=== PATIENT | female | born 1960 | race Caucasian/White ===

== ENCOUNTER → 2018-03-03 | Emergency (ER) | payer MEDICARE, MEDICAID ==
[~2018-03-03] VITALS: Ht 162.6 cm; Wt 91.0 kg
[~2018-03-03] MED LIST: ALBU8.5H8 IH; AMLO10TA PO; ARIP30TA3 PO; CARV-49 PO; CEPH500C5 PO; CLIN150C2 PO; ESCI10TA54 PO; ESCI5TAB12 PO; FLUO20CA PO; FLUT1AER IH; FLUT1DIS4 INH; FURO-149 PO; HALO5TAB PO; KETO120S6 TOP; LACTC PO; LORA10CA9 PO; LOSA50TA3 PO; NAPR-56 PO; NYST1POW5 TP; POTA10TA19 PO; SPIIN INH; TOPI50TA24 PO; UMEC62.5 IH; albuterol 2.5 MG/3 ML nebule NEB PRN; ipratropium 0.5 MG/2.5ML nebule IH PRN; mag hydrox/Alum hydrox/simeth 30ml oral suspension PO ONE; ziprasidone 20mg capsule PO SCH
[2018-03-03 13:45] LABS: BASOPHILS % (AUTO) 0.4 % (0-1); EOSINOPHILS # (AUTO) 0.3 X10'3 (0-0.9); HEMATOCRIT 42.9 % (35.0-45.0); HEMOGLOBIN 14.5 g/dl (12.0-16.0); LYMPHOCYTES # (AUTO) 2.1 X10'3 (1.1-4.8); LYMPHOCYTES % (AUTO) 29.1 % (21-51); MEAN CORPUSCULAR HEMOGLOBIN 31.1 PG (27.0-31.0); MEAN CORPUSCULAR HGB CONC 33.7 % (33.0-36.5); MEAN CORPUSCULAR VOLUME 92.1 FL (78-98); MEAN PLATELET VOLUME 7.5 FL (7.4-10.4); MONOCYTES # (AUTO) 0.5 X10'3 (0-0.9); MONOCYTES % (AUTO) 6.7 % (2-12); NEUTROPHILS # (AUTO) 4.4 X10'3 (1.8-7.7); NEUTROPHILS % (AUTO) 59.8 % (42-75); PLATELET COUNT 246 X10'3 (140-440); RED BLOOD COUNT 4.66 X10'6 (4.20-5.60); RED CELL DISTRIBUTION WIDTH 14.3 % (11.5-14.5); WHITE BLOOD COUNT 7.3 X10'3 (4.5-11.0)
[2018-03-03 13:58] LABS: ALANINE AMINOTRANSFERASE 25 U/L (12-78); ALBUMIN 3.8 G/DL (3.4-5.0); ALBUMIN/GLOBULIN RATIO 1.1 (1.1-1.5); ALKALINE PHOSPHATASE 102 IU/L (46-116); ANION GAP 13 (8-16); ASPARTATE AMINO TRANSFERASE 21 U/L (10-37); BILIRUBIN,TOTAL 0.3 MG/DL (0.1-1.0); BLOOD UREA NITROGEN 7 MG/DL (7-18); BUN/CREATININE RATIO 9.6 (6.6-38.0); CALCIUM 9.4 MG/DL (8.5-10.1); CHLORIDE 107 MMOL/L (99-107); CREATININE 0.73 MG/DL (0.40-0.90); GLUCOSE 104 MG/DL (70-104); POTASSIUM 3.5 MMOL/L (3.5-5.1); SODIUM 142 MMOL/L (135-145); TOTAL CARBON DIOXIDE 22.3 MMOL/L (24-32); TOTAL PROTEIN 7.3 G/DL (6.4-8.2); eGFR 82 ML/MIN
[2018-03-03 14:07] LABS: ETHANOL < 0.010 GM/DL (0.0-0.010)
[2018-03-03 14:54] LABS: CLARITY,URINE CLOUDY (Clear); COLOR,URINE YELLOW (Yellow); GLUCOSE, URINE NEGATIVE (Neg); KETONES,URINE TRACE mg/dl (Neg); LEUKOCYTE ESTERASE ,URINE NEGATIVE (Neg); NITRITES, URINE NEGATIVE (Neg); OCCULT BLOOD,URINE NEGATIVE (Neg); PH,URINE 5.5 (4.8-8.0); PROTEIN,URINE TRACE mg/dl (Neg)
[2018-03-03 15:07] LABS: UA COLLECTION TYPE VOIDED
[2018-03-03 15:12] LABS: SQUAMOUS EPITHELIAL CELL,UR MANY /LPF (FEW)
[2018-03-03 15:13] LABS: BACTERIA,URINE 2+ /HPF (Neg); CAL OXALATE CRYSTALS 1+ /HPF (NEGATIVE); MUCUS STRANDS MODERATE /LPF (Neg); RBC,URINE 0-2 /HPF (0-2)
[2018-03-03 15:16] LABS: URINE AMPHETAMINE SCREEN NEGATIVE (Neg); URINE BARBITUATE SCREEN NEGATIVE (Neg); URINE BENZODIAZEPINES SCREEN NEGATIVE (Neg); URINE CANNABINOID SCREEN NEGATIVE (Neg); URINE COCAINE SCREEN NEGATIVE (Neg); URINE METHADONE SCREEN NEGATIVE (Neg); URINE OPIATE SCREEN NEGATIVE (Neg); URINE PHENCYCLIDINE SCREEN NEGATIVE (Neg)
[2018-03-03] MEDS: topiramate 100mg tablet PO SCH (20:00)
[2018-03-03] MEDS: NYSTATIN CREAM - 30GM TUBE TP SCH (20:00)
[2018-03-03] MEDS: carvedilol 6.25mg tablet PO SCH (20:00)
[2018-03-03] MEDS: ipratropium 0.5 MG/2.5ML nebule NEB SCH (21:00)
[2018-03-04] MEDS: ipratropium 0.5 MG/2.5ML nebule NEB SCH ×4 (03:00→20:22)
[2018-03-04] MEDS: NYSTATIN CREAM - 30GM TUBE TP SCH ×2 (07:36→19:19)
[2018-03-04] MEDS: furosemide 40mg tablet PO SCH (08:00)
[2018-03-04] MEDS: loratadine 10mg tablet PO SCH (08:00)
[2018-03-04] MEDS: vitamin D (cholecalciferol) 1,000 unit tablet PO SCH (08:00)
[2018-03-04] MEDS: carvedilol 6.25mg tablet PO SCH ×2 (08:00→19:19)
[2018-03-04] MEDS: topiramate 100mg tablet PO SCH (08:00)
[2018-03-04] MEDS: CITALOpram 10mg tablet PO SCH (08:00)
[2018-03-04] MEDS: multivitamins, therapeutics tablet PO SCH (08:00)
[2018-03-04] MEDS: losartan 50mg tablet PO SCH (08:00)
[2018-03-04] MEDS: potassium chloride 10mEq ER tablet PO SCH (08:00)
[2018-03-04] MEDS: amLODIPine 5mg tablet PO SCH (08:00)
[2018-03-04] MEDS: risperiDONE 2mg tablet PO SCH ×2 (11:11→19:19)
[2018-03-04] MEDS: LORazepam 1 MG tablet PO SCH ×3 (11:12→20:24)
[2018-03-04] MEDS: nicotine 14mg patch - 24hr TD SCH (16:53)
[2018-03-05] MEDS: naproxen 500mg tablet PO PRN (02:30)
[2018-03-05] MEDS: ipratropium 0.5 MG/2.5ML nebule NEB SCH ×5 (02:30→20:12)
[2018-03-05] MEDS: potassium chloride 10mEq ER tablet PO SCH (08:00)
[2018-03-05] MEDS: NYSTATIN CREAM - 30GM TUBE TP SCH ×2 (08:00→20:00)
[2018-03-05] MEDS: LORazepam 1 MG tablet PO SCH ×3 (08:00→20:11)
[2018-03-05] MEDS: furosemide 40mg tablet PO SCH (08:00)
[2018-03-05] MEDS: nicotine 14mg patch - 24hr TD SCH (08:25)
[2018-03-05] MEDS: loratadine 10mg tablet PO SCH (08:26)
[2018-03-05] MEDS: multivitamins, therapeutics tablet PO SCH (08:26)
[2018-03-05] MEDS: risperiDONE 2mg tablet PO SCH ×2 (08:27→20:00)
[2018-03-05] MEDS: carvedilol 6.25mg tablet PO SCH ×2 (08:28→20:00)
[2018-03-05] MEDS: vitamin D (cholecalciferol) 1,000 unit tablet PO SCH (08:28)
[2018-03-05] MEDS: losartan 50mg tablet PO SCH (08:29)
[2018-03-05] MEDS: CITALOpram 10mg tablet PO SCH (08:29)
[2018-03-05] MEDS: amLODIPine 5mg tablet PO SCH (08:29)
[2018-03-06] MEDS: ipratropium 0.5 MG/2.5ML nebule NEB SCH ×4 (02:19→20:09)
[2018-03-06] MEDS: nicotine 14mg patch - 24hr TD SCH (07:44)
[2018-03-06] MEDS: furosemide 40mg tablet PO SCH (08:00)
[2018-03-06] MEDS: multivitamins, therapeutics tablet PO SCH (08:00)
[2018-03-06] MEDS: NYSTATIN CREAM - 30GM TUBE TP SCH ×2 (08:00→20:00)
[2018-03-06] MEDS: potassium chloride 10mEq ER tablet PO SCH (08:00)
[2018-03-06] MEDS: carvedilol 6.25mg tablet PO SCH ×2 (08:00→20:00)
[2018-03-06] MEDS: amLODIPine 5mg tablet PO SCH (08:00)
[2018-03-06] MEDS: loratadine 10mg tablet PO SCH (08:00)
[2018-03-06] MEDS: LORazepam 1 MG tablet PO SCH ×3 (08:00→21:00)
[2018-03-06] MEDS: vitamin D (cholecalciferol) 1,000 unit tablet PO SCH (08:00)
[2018-03-06] MEDS: risperiDONE 2mg tablet PO SCH ×2 (08:00→20:00)
[2018-03-06] MEDS: losartan 50mg tablet PO SCH (08:00)
[2018-03-06] MEDS: CITALOpram 10mg tablet PO SCH (08:00)
[2018-03-07] MEDS: naproxen 500mg tablet PO PRN ×2 (03:27→15:05)
[2018-03-07] MEDS: NYSTATIN CREAM - 30GM TUBE TP SCH ×2 (08:00→19:05)
[2018-03-07] MEDS: loratadine 10mg tablet PO SCH (08:00)
[2018-03-07] MEDS: potassium chloride 10mEq ER tablet PO SCH (08:00)
[2018-03-07] MEDS: furosemide 40mg tablet PO SCH (08:00)
[2018-03-07] MEDS: LORazepam 1 MG tablet PO SCH ×3 (08:00→19:57)
[2018-03-07] MEDS: nicotine 14mg patch - 24hr TD SCH (08:30)
[2018-03-07] MEDS: losartan 50mg tablet PO SCH (08:39)
[2018-03-07] MEDS: amLODIPine 5mg tablet PO SCH (08:39)
[2018-03-07] MEDS: CITALOpram 10mg tablet PO SCH (08:40)
[2018-03-07] MEDS: multivitamins, therapeutics tablet PO SCH (08:42)
[2018-03-07] MEDS: vitamin D (cholecalciferol) 1,000 unit tablet PO SCH (08:42)
[2018-03-07] MEDS: risperiDONE 2mg tablet PO SCH ×2 (09:16→20:03)
[2018-03-07] MEDS: carvedilol 6.25mg tablet PO SCH ×2 (09:16→20:03)
[2018-03-08] MEDS: vitamin D (cholecalciferol) 1,000 unit tablet PO SCH (07:04)
[2018-03-08] MEDS: loratadine 10mg tablet PO SCH (07:04)
[2018-03-08] MEDS: carvedilol 6.25mg tablet PO SCH ×2 (07:05→20:35)
[2018-03-08] MEDS: amLODIPine 5mg tablet PO SCH (07:05)
[2018-03-08] MEDS: LORazepam 1 MG tablet PO SCH ×3 (07:05→21:42)
[2018-03-08] MEDS: losartan 50mg tablet PO SCH (07:06)
[2018-03-08] MEDS: CITALOpram 10mg tablet PO SCH (07:08)
[2018-03-08] MEDS: furosemide 40mg tablet PO SCH (07:09)
[2018-03-08] MEDS: risperiDONE 2mg tablet PO SCH ×2 (07:09→20:35)
[2018-03-08] MEDS: multivitamins, therapeutics tablet PO SCH (07:09)
[2018-03-08] MEDS: potassium chloride 10mEq ER tablet PO SCH (07:09)
[2018-03-08] MEDS: nicotine 14mg patch - 24hr TD SCH ×2 (07:10→07:30)
[2018-03-08] MEDS: NYSTATIN CREAM - 30GM TUBE TP SCH ×2 (08:00→20:36)
[2018-03-08 20:25] VITALS: BP 131/77
== END ==
LOC: ER 11:52
DX: F23 Brief psychotic disorder (principal); Z88.8 Allergy status to other drugs, medicaments and biological substances; Z79.899 Other long term (current) drug therapy
CPT/HCPCS: 36415; 80053; 80305; 80320; 81001; 84443; 85025; 94760; 99285

== ENCOUNTER 2018-03-14 15:30 | Inpatient (IN) | payer MEDICARE, MEDICAID ==
[~2018-03-14] VITALS: Ht 165.1 cm; Wt 125.6 kg
[~2018-03-14 15:30] MED LIST changes: -ARIP30TA3 PO; -CEPH500C5 PO; -CLIN150C2 PO; -ESCI5TAB12 PO; -FLUO20CA PO; -FLUT1DIS4 INH; -KETO120S6 TOP; -LACTC PO; -NYST1POW5 TP; -SPIIN INH; -albuterol 2.5 MG/3 ML nebule NEB PRN; -ipratropium 0.5 MG/2.5ML nebule IH PRN; -mag hydrox/Alum hydrox/simeth 30ml oral suspension PO ONE; -ziprasidone 20mg capsule PO SCH
[2018-03-14] MEDS ORDERED: albuterol 2.5 MG/3 ML nebule NEB PRN (20:25)
[2018-03-14] MEDS ORDERED: haloperidol 5mg tablet PO PRN (20:30)
[2018-03-14] MEDS ORDERED: mag hydrox/Alum hydrox/simeth 30ml oral suspension PO PRN (20:50)
[2018-03-14] MEDS ORDERED: acetaminophen 325mg tablet PO PRN (20:50)
[2018-03-14] MEDS ORDERED: magnesium hydroxide 30ml (MOM) UD suspension PO PRN (20:50)
[2018-03-14] MEDS: naproxen 500mg tablet PO PRN (21:10)
[2018-03-14] MEDS: haloperidol 5mg tablet PO SCH (21:28)
[2018-03-14] MEDS: BUDESONIDE 0.25 MG/2 ML AMPUL.NEB IH SCH (23:45)
[2018-03-15] MEDS: albuterol 2.5 MG/3 ML nebule NEB SCH ×4 (07:00→19:37)
[2018-03-15] MEDS: potassium chloride 10mEq ER tablet PO SCH (07:55)
[2018-03-15] MEDS: amLODIPine 5mg tablet PO SCH (07:55)
[2018-03-15] MEDS: topiramate 100mg tablet PO SCH ×2 (07:55→21:20)
[2018-03-15] MEDS: furosemide 40mg tablet PO SCH (07:55)
[2018-03-15] MEDS: carvedilol 6.25mg tablet PO SCH ×2 (07:56→21:20)
[2018-03-15] MEDS: losartan 50mg tablet PO SCH (07:56)
[2018-03-15] MEDS: loratadine 10mg tablet PO SCH (07:56)
[2018-03-15 08:00] VITALS: BP 156/89
[2018-03-15] MEDS: INCRUSE ELLIPTA IH SCH (08:00)
[2018-03-15] MEDS ORDERED: citalopram 20mg tablet PO SCH (08:00)
[2018-03-15] MEDS ORDERED: nicotine 14mg patch - 24hr TD ONE (08:35)
[2018-03-15] MEDS: BUDESONIDE 0.25 MG/2 ML AMPUL.NEB IH SCH ×2 (11:36→19:37)
[2018-03-15] MEDS: naproxen 500mg tablet PO PRN (14:45)
[2018-03-15 20:00] VITALS: BP 95/53
[2018-03-15] MEDS: haloperidol 5mg tablet PO SCH (21:00)
[2018-03-16] MEDS: albuterol 2.5 MG/3 ML nebule NEB SCH ×4 (07:00→19:00)
[2018-03-16] MEDS: INCRUSE ELLIPTA IH SCH (08:00)
[2018-03-16] MEDS ORDERED: PALIPERIDONE 3 MG TAB.ER.24 PO SCH (08:00)
[2018-03-16] MEDS ORDERED: venlafaxine XR 37.5mg cap (Q24H) PO SCH (08:00)
[2018-03-16 08:05] VITALS: BP 117/75
[2018-03-16 08:21] LABS: CHOL/HDL RATIO 4.7 (0.00-4.99); CHOLESTEROL 226 MG/DL (0-200); HDL CHOLESTEROL 48 MG/DL (35-60); LDL CHOLESTEROL 146 MG/DL (50-100); TRIGLYCERIDES 215 MG/DL (20-135)
[2018-03-16 08:31] LABS: HEMOGLOBIN A1C 5.9 % (4.5-6.2)
[2018-03-16] MEDS: nicotine 14mg patch - 24hr TD SCH (08:40)
[2018-03-16] MEDS: loratadine 10mg tablet PO SCH (08:40)
[2018-03-16] MEDS: losartan 50mg tablet PO SCH (08:41)
[2018-03-16] MEDS: potassium chloride 10mEq ER tablet PO SCH (08:41)
[2018-03-16] MEDS: furosemide 40mg tablet PO SCH (08:41)
[2018-03-16] MEDS: topiramate 100mg tablet PO SCH ×2 (08:42→20:29)
[2018-03-16] MEDS: carvedilol 6.25mg tablet PO SCH ×2 (08:43→20:30)
[2018-03-16] MEDS: amLODIPine 5mg tablet PO SCH (08:44)
[2018-03-16] MEDS: doxycycline hyclate 100mg tablet.DR PO SCH ×2 (08:55→17:48)
[2018-03-16] MEDS: BUDESONIDE 0.25 MG/2 ML AMPUL.NEB IH SCH ×2 (09:00→19:56)
[2018-03-16 20:00] VITALS: BP 121/77
[2018-03-17] MEDS: albuterol 2.5 MG/3 ML nebule NEB SCH ×4 (07:00→19:00)
[2018-03-17] MEDS: INCRUSE ELLIPTA IH SCH (08:00)
[2018-03-17] MEDS: nicotine 14mg patch - 24hr TD SCH (08:20)
[2018-03-17] MEDS: loratadine 10mg tablet PO SCH (08:20)
[2018-03-17] MEDS: doxycycline hyclate 100mg tablet.DR PO SCH ×2 (08:20→17:51)
[2018-03-17] MEDS: potassium chloride 10mEq ER tablet PO SCH (08:21)
[2018-03-17] MEDS: venlafaxine XR 37.5mg cap (Q24H) PO SCH (08:21)
[2018-03-17] MEDS: PALIPERIDONE 3 MG TAB.ER.24 PO SCH (08:21)
[2018-03-17] MEDS: losartan 50mg tablet PO SCH (08:22)
[2018-03-17] MEDS: amLODIPine 5mg tablet PO SCH (08:22)
[2018-03-17] MEDS: topiramate 100mg tablet PO SCH ×2 (08:22→21:03)
[2018-03-17] MEDS: carvedilol 6.25mg tablet PO SCH ×2 (08:22→21:02)
[2018-03-17] MEDS: furosemide 40mg tablet PO SCH (08:22)
[2018-03-17 08:43] VITALS: BP 110/68
[2018-03-17] MEDS: BUDESONIDE 0.25 MG/2 ML AMPUL.NEB IH SCH ×2 (09:00→21:00)
[2018-03-17] MEDS: naproxen 500mg tablet PO PRN (16:17)
[2018-03-17 19:39] VITALS: BP 116/57
[2018-03-17] MEDS: acetaminophen 325mg tablet PO PRN (21:03)
[2018-03-18] MEDS: INCRUSE ELLIPTA IH SCH (06:26)
[2018-03-18] MEDS: albuterol 2.5 MG/3 ML nebule NEB SCH ×4 (06:26→19:00)
[2018-03-18] MEDS: BUDESONIDE 0.25 MG/2 ML AMPUL.NEB IH SCH ×2 (06:27→20:32)
[2018-03-18] MEDS: doxycycline hyclate 100mg tablet.DR PO SCH ×2 (07:24→17:51)
[2018-03-18 08:27] VITALS: BP 129/77
[2018-03-18] MEDS: losartan 50mg tablet PO SCH (08:30)
[2018-03-18] MEDS: PALIPERIDONE 3 MG TAB.ER.24 PO SCH (08:31)
[2018-03-18] MEDS: amLODIPine 5mg tablet PO SCH (08:31)
[2018-03-18] MEDS: loratadine 10mg tablet PO SCH (08:31)
[2018-03-18] MEDS: topiramate 100mg tablet PO SCH ×2 (08:31→20:10)
[2018-03-18] MEDS: venlafaxine XR 37.5mg cap (Q24H) PO SCH (08:31)
[2018-03-18] MEDS: potassium chloride 10mEq ER tablet PO SCH (08:31)
[2018-03-18] MEDS: carvedilol 6.25mg tablet PO SCH ×2 (08:31→20:10)
[2018-03-18] MEDS: furosemide 40mg tablet PO SCH (08:31)
[2018-03-18] MEDS: nicotine 14mg patch - 24hr TD SCH (08:32)
[2018-03-18 19:00] VITALS: BP 111/72
[2018-03-19] MEDS: albuterol 2.5 MG/3 ML nebule NEB SCH ×5 (07:00→21:35)
[2018-03-19] MEDS: topiramate 100mg tablet PO SCH ×2 (07:40→20:47)
[2018-03-19] MEDS: amLODIPine 5mg tablet PO SCH (07:40)
[2018-03-19] MEDS: carvedilol 6.25mg tablet PO SCH ×2 (07:40→20:48)
[2018-03-19] MEDS: potassium chloride 10mEq ER tablet PO SCH (07:40)
[2018-03-19] MEDS: losartan 50mg tablet PO SCH (07:40)
[2018-03-19] MEDS: loratadine 10mg tablet PO SCH (07:41)
[2018-03-19] MEDS: doxycycline hyclate 100mg tablet.DR PO SCH ×2 (07:41→17:46)
[2018-03-19] MEDS: venlafaxine XR 37.5mg cap (Q24H) PO SCH (07:41)
[2018-03-19] MEDS: PALIPERIDONE 3 MG TAB.ER.24 PO SCH (07:41)
[2018-03-19] MEDS: furosemide 40mg tablet PO SCH (07:41)
[2018-03-19] MEDS: nicotine 14mg patch - 24hr TD SCH (07:44)
[2018-03-19] MEDS: INCRUSE ELLIPTA IH SCH (07:48)
[2018-03-19] MEDS: BUDESONIDE 0.25 MG/2 ML AMPUL.NEB IH SCH ×3 (07:48→21:36)
[2018-03-19 08:22] VITALS: BP 125/70
[2018-03-19] MEDS ORDERED: paliperidone palmitate inj 234 MG/1.5 ML SYRINGE IM ONE (13:50)
[2018-03-19 20:00] VITALS: BP 148/85
[2018-03-19] MEDS: lactobacillus rhamnosus 10,000 MMU CELLS/CAPSULE PO SCH (20:47)
[2018-03-19] MEDS: nystatin 15 GM powder TP SCH (20:48)
[2018-03-20 08:00] VITALS: BP 105/66
[2018-03-20] MEDS: INCRUSE ELLIPTA IH SCH (08:00)
[2018-03-20] MEDS: PALIPERIDONE 3 MG TAB.ER.24 PO SCH (08:37)
[2018-03-20] MEDS: venlafaxine XR 37.5mg cap (Q24H) PO SCH (08:37)
[2018-03-20] MEDS: nicotine 14mg patch - 24hr TD SCH (08:37)
[2018-03-20] MEDS: doxycycline hyclate 100mg tablet.DR PO SCH ×2 (08:37→17:45)
[2018-03-20] MEDS: loratadine 10mg tablet PO SCH (08:37)
[2018-03-20] MEDS: amLODIPine 5mg tablet PO SCH (08:38)
[2018-03-20] MEDS: losartan 50mg tablet PO SCH (08:38)
[2018-03-20] MEDS: carvedilol 6.25mg tablet PO SCH ×2 (08:38→20:19)
[2018-03-20] MEDS: lactobacillus rhamnosus 10,000 MMU CELLS/CAPSULE PO SCH ×2 (08:38→20:19)
[2018-03-20] MEDS: furosemide 40mg tablet PO SCH (08:38)
[2018-03-20] MEDS: potassium chloride 10mEq ER tablet PO SCH (08:38)
[2018-03-20] MEDS: nystatin 15 GM powder TP SCH ×3 (08:39→20:19)
[2018-03-20] MEDS: topiramate 100mg tablet PO SCH ×2 (08:39→20:19)
[2018-03-20 19:14] VITALS: BP 143/73
[2018-03-20] MEDS: BUDESONIDE 0.25 MG/2 ML AMPUL.NEB IH SCH (19:41)
[2018-03-21 08:00] VITALS: BP 122/83
[2018-03-21] MEDS: INCRUSE ELLIPTA IH SCH (08:00)
[2018-03-21] MEDS: topiramate 100mg tablet PO SCH ×2 (08:02→20:14)
[2018-03-21] MEDS: doxycycline hyclate 100mg tablet.DR PO SCH ×2 (08:03→17:40)
[2018-03-21] MEDS: furosemide 40mg tablet PO SCH (08:03)
[2018-03-21] MEDS: potassium chloride 10mEq ER tablet PO SCH (08:03)
[2018-03-21] MEDS: lactobacillus rhamnosus 10,000 MMU CELLS/CAPSULE PO SCH ×2 (08:03→20:14)
[2018-03-21] MEDS: loratadine 10mg tablet PO SCH (08:03)
[2018-03-21] MEDS: venlafaxine XR 37.5mg cap (Q24H) PO SCH (08:03)
[2018-03-21] MEDS: amLODIPine 5mg tablet PO SCH (08:03)
[2018-03-21] MEDS: carvedilol 6.25mg tablet PO SCH ×2 (08:03→20:14)
[2018-03-21] MEDS: losartan 50mg tablet PO SCH (08:03)
[2018-03-21] MEDS: PALIPERIDONE 3 MG TAB.ER.24 PO SCH (08:03)
[2018-03-21] MEDS: nicotine 14mg patch - 24hr TD SCH (08:04)
[2018-03-21] MEDS: BUDESONIDE 0.25 MG/2 ML AMPUL.NEB IH SCH ×2 (08:30→21:00)
[2018-03-21] MEDS: nystatin 15 GM powder TP SCH ×3 (09:00→20:14)
[2018-03-21 19:00] VITALS: BP 121/72
[2018-03-22] MEDS: PALIPERIDONE 3 MG TAB.ER.24 PO SCH (07:58)
[2018-03-22] MEDS: doxycycline hyclate 100mg tablet.DR PO SCH ×2 (07:58→18:02)
[2018-03-22] MEDS: loratadine 10mg tablet PO SCH (07:58)
[2018-03-22] MEDS: potassium chloride 10mEq ER tablet PO SCH (07:58)
[2018-03-22] MEDS: furosemide 40mg tablet PO SCH (07:58)
[2018-03-22] MEDS: lactobacillus rhamnosus 10,000 MMU CELLS/CAPSULE PO SCH ×2 (07:58→21:02)
[2018-03-22] MEDS: amLODIPine 5mg tablet PO SCH (07:58)
[2018-03-22] MEDS: carvedilol 6.25mg tablet PO SCH ×2 (07:59→21:02)
[2018-03-22] MEDS: nystatin 15 GM powder TP SCH ×3 (07:59→21:07)
[2018-03-22] MEDS: topiramate 100mg tablet PO SCH ×2 (07:59→21:03)
[2018-03-22] MEDS: losartan 50mg tablet PO SCH (07:59)
[2018-03-22] MEDS: venlafaxine XR 37.5mg cap (Q24H) PO SCH (07:59)
[2018-03-22 08:00] VITALS: BP 149/88
[2018-03-22] MEDS: INCRUSE ELLIPTA IH SCH (08:00)
[2018-03-22] MEDS: nicotine 14mg patch - 24hr TD SCH (08:00)
[2018-03-22] MEDS: BUDESONIDE 0.25 MG/2 ML AMPUL.NEB IH SCH ×2 (09:00→21:00)
[2018-03-22] MEDS: albuterol 2.5 MG/3 ML nebule NEB PRN (09:30)
[2018-03-22 09:32] LABS: BASOPHILS % (AUTO) 0.3 % (0-1); EOSINOPHILS # (AUTO) 0.5 X10'3 (0-0.9); EOSINOPHILS % (AUTO) 5.4 % (0-6); HEMATOCRIT 37.7 % (35.0-45.0); HEMOGLOBIN 12.9 g/dl (12.0-16.0); LYMPHOCYTES # (AUTO) 1.9 X10'3 (1.1-4.8); LYMPHOCYTES % (AUTO) 19.6 % (21-51); MEAN CORPUSCULAR HEMOGLOBIN 31.2 PG (27.0-31.0); MEAN CORPUSCULAR HGB CONC 34.2 % (33.0-36.5); MEAN CORPUSCULAR VOLUME 91.2 FL (78-98); MEAN PLATELET VOLUME 7.2 FL (7.4-10.4); MONOCYTES # (AUTO) 0.4 X10'3 (0-0.9); MONOCYTES % (AUTO) 4.7 % (2-12); NEUTROPHILS # (AUTO) 6.6 X10'3 (1.8-7.7); PLATELET COUNT 242 X10'3 (140-440); RED BLOOD COUNT 4.13 X10'6 (4.20-5.60); WHITE BLOOD COUNT 9.4 X10'3 (4.5-11.0)
[2018-03-22 09:45] LABS: ALANINE AMINOTRANSFERASE 20 U/L (12-78); ALBUMIN/GLOBULIN RATIO 0.9 (1.1-1.5); ALKALINE PHOSPHATASE 110 IU/L (46-116); ANION GAP 9 (8-16); ASPARTATE AMINO TRANSFERASE 12 U/L (10-37); BILIRUBIN,TOTAL 0.1 MG/DL (0.1-1.0); BLOOD UREA NITROGEN 19 MG/DL (7-18); BUN/CREATININE RATIO 21.3 (6.6-38.0); CALCIUM 8.7 MG/DL (8.5-10.1); CHLORIDE 106 MMOL/L (99-107); CREATININE 0.89 MG/DL (0.40-0.90); GLUCOSE 153 MG/DL (70-104); POTASSIUM 3.6 MMOL/L (3.5-5.1); SODIUM 140 MMOL/L (135-145); TOTAL CARBON DIOXIDE 25.2 MMOL/L (24-32); TOTAL PROTEIN 6.4 G/DL (6.4-8.2); eGFR 65 ML/MIN
[2018-03-22 19:00] VITALS: BP 113/82
[2018-03-22] MEDS: naproxen 500mg tablet PO PRN (21:03)
[2018-03-23 08:00] VITALS: BP 143/87
[2018-03-23] MEDS: nystatin 15 GM powder TP SCH ×3 (08:00→20:53)
[2018-03-23] MEDS: INCRUSE ELLIPTA IH SCH (08:00)
[2018-03-23] MEDS: carvedilol 6.25mg tablet PO SCH ×2 (08:13→20:41)
[2018-03-23] MEDS: atorvastatin 10mg tablet PO SCH (08:13)
[2018-03-23] MEDS: doxycycline hyclate 100mg tablet.DR PO SCH (08:13)
[2018-03-23] MEDS: venlafaxine XR 37.5mg cap (Q24H) PO SCH (08:13)
[2018-03-23] MEDS: topiramate 100mg tablet PO SCH ×2 (08:13→20:41)
[2018-03-23] MEDS: losartan 50mg tablet PO SCH (08:13)
[2018-03-23] MEDS: potassium chloride 10mEq ER tablet PO SCH (08:13)
[2018-03-23] MEDS: amLODIPine 5mg tablet PO SCH (08:13)
[2018-03-23] MEDS: PALIPERIDONE 3 MG TAB.ER.24 PO SCH (08:13)
[2018-03-23] MEDS: loratadine 10mg tablet PO SCH (08:13)
[2018-03-23] MEDS: nicotine 14mg patch - 24hr TD SCH (08:14)
[2018-03-23] MEDS: lactobacillus rhamnosus 10,000 MMU CELLS/CAPSULE PO SCH ×2 (08:14→20:41)
[2018-03-23] MEDS: BUDESONIDE 0.25 MG/2 ML AMPUL.NEB IH PRN (09:17)
[2018-03-23] MEDS: albuterol 2.5 MG/3 ML nebule NEB PRN (09:17)
[2018-03-23] MEDS: naproxen 500mg tablet PO PRN (11:01)
[2018-03-23 20:00] VITALS: BP 98/61
[2018-03-23 20:30] VITALS: BP 110/60
[2018-03-24] MEDS: nicotine 14mg patch - 24hr TD SCH (07:58)
[2018-03-24] MEDS: topiramate 100mg tablet PO SCH ×2 (07:59→20:43)
[2018-03-24] MEDS: lactobacillus rhamnosus 10,000 MMU CELLS/CAPSULE PO SCH ×2 (07:59→20:43)
[2018-03-24] MEDS: amLODIPine 5mg tablet PO SCH (07:59)
[2018-03-24] MEDS: atorvastatin 10mg tablet PO SCH (07:59)
[2018-03-24] MEDS: venlafaxine XR 37.5mg cap (Q24H) PO SCH (07:59)
[2018-03-24] MEDS: carvedilol 6.25mg tablet PO SCH ×2 (07:59→20:42)
[2018-03-24 08:00] VITALS: BP 110/74
[2018-03-24] MEDS: losartan 50mg tablet PO SCH (08:00)
[2018-03-24] MEDS: PALIPERIDONE 3 MG TAB.ER.24 PO SCH (08:00)
[2018-03-24] MEDS: potassium chloride 10mEq ER tablet PO SCH (08:00)
[2018-03-24] MEDS: loratadine 10mg tablet PO SCH (08:00)
[2018-03-24] MEDS: INCRUSE ELLIPTA IH SCH (08:00)
[2018-03-24 08:45] LABS: CLARITY,URINE CLEAR (Clear); COLOR,URINE YELLOW (Yellow); GLUCOSE, URINE NEGATIVE (Neg); KETONES,URINE NEGATIVE (Neg); LEUKOCYTE ESTERASE ,URINE NEGATIVE (Neg); NITRITES, URINE NEGATIVE (Neg); OCCULT BLOOD,URINE NEGATIVE (Neg); PROTEIN,URINE NEGATIVE (Neg); UROBILINOGEN,URINE 0.2 E.U/dL (0.2-1.0)
[2018-03-24 08:48] LABS: UA COLLECTION TYPE CLN CATCH MIDSTREAM
[2018-03-24] MEDS: nystatin 15 GM powder TP SCH ×3 (08:50→20:43)
[2018-03-24 09:05] LABS: URINE AMPHETAMINE SCREEN NEGATIVE (Neg); URINE BARBITUATE SCREEN NEGATIVE (Neg); URINE BENZODIAZEPINES SCREEN NEGATIVE (Neg); URINE CANNABINOID SCREEN NEGATIVE (Neg); URINE COCAINE SCREEN NEGATIVE (Neg); URINE METHADONE SCREEN NEGATIVE (Neg); URINE OPIATE SCREEN NEGATIVE (Neg); URINE PHENCYCLIDINE SCREEN NEGATIVE (Neg)
[2018-03-24] MEDS: BUDESONIDE 0.25 MG/2 ML AMPUL.NEB IH PRN (09:47)
[2018-03-24 19:00] VITALS: BP 129/82
[2018-03-25 08:00] VITALS: BP 135/80
[2018-03-25] MEDS: INCRUSE ELLIPTA IH SCH (08:00)
[2018-03-25] MEDS: loratadine 10mg tablet PO SCH (08:14)
[2018-03-25] MEDS: losartan 50mg tablet PO SCH (08:15)
[2018-03-25] MEDS: lactobacillus rhamnosus 10,000 MMU CELLS/CAPSULE PO SCH ×2 (08:15→20:25)
[2018-03-25] MEDS: carvedilol 6.25mg tablet PO SCH ×2 (08:15→20:25)
[2018-03-25] MEDS: atorvastatin 10mg tablet PO SCH (08:16)
[2018-03-25] MEDS: venlafaxine XR 37.5mg cap (Q24H) PO SCH (08:16)
[2018-03-25] MEDS: potassium chloride 10mEq ER tablet PO SCH (08:16)
[2018-03-25] MEDS: PALIPERIDONE 3 MG TAB.ER.24 PO SCH (08:17)
[2018-03-25] MEDS: nicotine 14mg patch - 24hr TD SCH (08:17)
[2018-03-25] MEDS: nystatin 15 GM powder TP SCH ×3 (08:17→20:22)
[2018-03-25] MEDS: topiramate 100mg tablet PO SCH ×2 (08:17→20:25)
[2018-03-25] MEDS: amLODIPine 5mg tablet PO SCH (08:19)
[2018-03-25] MEDS ORDERED: tuberculin, purif. prot. deriv. 5 units/0.1ml ID ONE (11:40)
[2018-03-25 20:58] VITALS: BP 112/67
[2018-03-26] MEDS: INCRUSE ELLIPTA IH SCH (07:27)
[2018-03-26 08:00] VITALS: BP 130/76
[2018-03-26] MEDS: PALIPERIDONE 3 MG TAB.ER.24 PO SCH (08:22)
[2018-03-26] MEDS: topiramate 100mg tablet PO SCH ×2 (08:22→20:52)
[2018-03-26] MEDS: potassium chloride 10mEq ER tablet PO SCH (08:22)
[2018-03-26] MEDS: nystatin 15 GM powder TP SCH ×3 (08:22→21:00)
[2018-03-26] MEDS: atorvastatin 10mg tablet PO SCH (08:22)
[2018-03-26] MEDS: nicotine 14mg patch - 24hr TD SCH (08:22)
[2018-03-26] MEDS: loratadine 10mg tablet PO SCH (08:22)
[2018-03-26] MEDS: venlafaxine XR 37.5mg cap (Q24H) PO SCH (08:23)
[2018-03-26] MEDS: amLODIPine 5mg tablet PO SCH (08:23)
[2018-03-26] MEDS: carvedilol 6.25mg tablet PO SCH ×2 (08:23→20:53)
[2018-03-26] MEDS: lactobacillus rhamnosus 10,000 MMU CELLS/CAPSULE PO SCH ×2 (08:23→20:52)
[2018-03-26] MEDS: losartan 50mg tablet PO SCH (08:23)
[2018-03-26] MEDS ORDERED: paliperidone palmitate 156 mg/ml inj.**IM only IM ONE (10:05)
[2018-03-26] MEDS: naproxen 500mg tablet PO PRN (12:45)
[2018-03-26 19:00] VITALS: BP 129/75
[2018-03-27 08:00] VITALS: BP 111/75
[2018-03-27] MEDS: nystatin 15 GM powder TP SCH ×3 (08:00→21:16)
[2018-03-27] MEDS: INCRUSE ELLIPTA IH SCH (08:00)
[2018-03-27] MEDS: venlafaxine XR 37.5mg cap (Q24H) PO SCH (08:26)
[2018-03-27] MEDS: loratadine 10mg tablet PO SCH (08:26)
[2018-03-27] MEDS: nicotine 14mg patch - 24hr TD SCH (08:26)
[2018-03-27] MEDS: lactobacillus rhamnosus 10,000 MMU CELLS/CAPSULE PO SCH ×2 (08:26→21:16)
[2018-03-27] MEDS: atorvastatin 10mg tablet PO SCH (08:26)
[2018-03-27] MEDS: potassium chloride 10mEq ER tablet PO SCH (08:26)
[2018-03-27] MEDS: topiramate 100mg tablet PO SCH ×2 (08:26→21:16)
[2018-03-27] MEDS: amLODIPine 5mg tablet PO SCH (08:26)
[2018-03-27] MEDS: losartan 50mg tablet PO SCH (08:26)
[2018-03-27] MEDS: carvedilol 6.25mg tablet PO SCH ×2 (08:26→21:16)
[2018-03-27] MEDS: naproxen 500mg tablet PO PRN (10:23)
[2018-03-27 20:00] VITALS: BP 127/70
[2018-03-28 08:00] VITALS: BP 115/74
[2018-03-28] MEDS: INCRUSE ELLIPTA IH SCH ×2 (08:00→14:15)
[2018-03-28] MEDS: nystatin 15 GM powder TP SCH ×3 (08:00→21:05)
[2018-03-28] MEDS: atorvastatin 10mg tablet PO SCH (08:27)
[2018-03-28] MEDS: potassium chloride 10mEq ER tablet PO SCH (08:27)
[2018-03-28] MEDS: lactobacillus rhamnosus 10,000 MMU CELLS/CAPSULE PO SCH ×2 (08:27→19:44)
[2018-03-28] MEDS: carvedilol 6.25mg tablet PO SCH ×2 (08:27→19:44)
[2018-03-28] MEDS: venlafaxine XR 37.5mg cap (Q24H) PO SCH (08:27)
[2018-03-28] MEDS: loratadine 10mg tablet PO SCH (08:27)
[2018-03-28] MEDS: losartan 50mg tablet PO SCH (08:27)
[2018-03-28] MEDS: topiramate 100mg tablet PO SCH ×2 (08:27→19:44)
[2018-03-28] MEDS: amLODIPine 5mg tablet PO SCH (08:27)
[2018-03-28] MEDS: nicotine 14mg patch - 24hr TD SCH (08:28)
[2018-03-28 19:58] VITALS: BP 124/77
[2018-03-29] MEDS: INCRUSE ELLIPTA IH SCH (07:12)
[2018-03-29 08:00] VITALS: BP 123/69
[2018-03-29] MEDS: nystatin 15 GM powder TP SCH ×3 (08:00→20:25)
[2018-03-29] MEDS: lactobacillus rhamnosus 10,000 MMU CELLS/CAPSULE PO SCH ×2 (08:06→20:24)
[2018-03-29] MEDS: potassium chloride 10mEq ER tablet PO SCH (08:06)
[2018-03-29] MEDS: loratadine 10mg tablet PO SCH (08:06)
[2018-03-29] MEDS: amLODIPine 5mg tablet PO SCH (08:07)
[2018-03-29] MEDS: losartan 50mg tablet PO SCH (08:07)
[2018-03-29] MEDS: venlafaxine XR 37.5mg cap (Q24H) PO SCH (08:08)
[2018-03-29] MEDS: carvedilol 6.25mg tablet PO SCH ×2 (08:08→20:24)
[2018-03-29] MEDS: topiramate 100mg tablet PO SCH ×2 (08:08→20:24)
[2018-03-29] MEDS: nicotine 14mg patch - 24hr TD SCH (08:34)
[2018-03-29] MEDS: atorvastatin 10mg tablet PO SCH (08:34)
[2018-03-29 20:02] VITALS: BP 108/69
[2018-03-30] MEDS: losartan 50mg tablet PO SCH (08:00)
[2018-03-30] MEDS: nystatin 15 GM powder TP SCH ×3 (08:00→21:00)
[2018-03-30] MEDS: lactobacillus rhamnosus 10,000 MMU CELLS/CAPSULE PO SCH ×2 (08:08→20:24)
[2018-03-30] MEDS: carvedilol 6.25mg tablet PO SCH ×2 (08:08→20:24)
[2018-03-30] MEDS: loratadine 10mg tablet PO SCH (08:08)
[2018-03-30] MEDS: topiramate 100mg tablet PO SCH ×2 (08:09→20:24)
[2018-03-30] MEDS: atorvastatin 10mg tablet PO SCH (08:09)
[2018-03-30] MEDS: venlafaxine XR 37.5mg cap (Q24H) PO SCH (08:09)
[2018-03-30] MEDS: amLODIPine 5mg tablet PO SCH (08:09)
[2018-03-30] MEDS: potassium chloride 10mEq ER tablet PO SCH (08:09)
[2018-03-30] MEDS: nicotine 14mg patch - 24hr TD SCH (08:10)
[2018-03-30 08:40] VITALS: BP 105/69
[2018-03-30] MEDS: naproxen 500mg tablet PO PRN (11:02)
[2018-03-30 19:02] VITALS: BP 133/76
[2018-03-31 07:59] VITALS: BP 136/79
[2018-03-31] MEDS: nystatin 15 GM powder TP SCH ×3 (08:00→20:54)
[2018-03-31] MEDS: loratadine 10mg tablet PO SCH (08:18)
[2018-03-31] MEDS: potassium chloride 10mEq ER tablet PO SCH (08:19)
[2018-03-31] MEDS: lactobacillus rhamnosus 10,000 MMU CELLS/CAPSULE PO SCH ×2 (08:19→20:54)
[2018-03-31] MEDS: atorvastatin 10mg tablet PO SCH (08:19)
[2018-03-31] MEDS: venlafaxine XR 37.5mg cap (Q24H) PO SCH (08:19)
[2018-03-31] MEDS: carvedilol 6.25mg tablet PO SCH ×2 (08:19→20:54)
[2018-03-31] MEDS: losartan 50mg tablet PO SCH (08:19)
[2018-03-31] MEDS: topiramate 100mg tablet PO SCH ×2 (08:20→20:54)
[2018-03-31] MEDS: amLODIPine 5mg tablet PO SCH (08:20)
[2018-03-31] MEDS: nicotine 14mg patch - 24hr TD SCH (08:20)
[2018-03-31] MEDS: diphenhydrAMINE 25mg capsule PO PRN (17:24)
[2018-03-31 20:00] VITALS: BP 118/63
[2018-03-31] MEDS: clotrimazole topical cream 15gm tube TP SCH (21:30)
[2018-04-01] MEDS: nystatin 15 GM powder TP SCH ×3 (08:00→21:17)
[2018-04-01 08:08] VITALS: BP 107/65
[2018-04-01] MEDS: venlafaxine XR 37.5mg cap (Q24H) PO SCH (08:20)
[2018-04-01] MEDS: lactobacillus rhamnosus 10,000 MMU CELLS/CAPSULE PO SCH ×2 (08:20→21:16)
[2018-04-01] MEDS: topiramate 100mg tablet PO SCH ×2 (08:20→21:16)
[2018-04-01] MEDS: atorvastatin 10mg tablet PO SCH (08:20)
[2018-04-01] MEDS: losartan 50mg tablet PO SCH (08:20)
[2018-04-01] MEDS: potassium chloride 10mEq ER tablet PO SCH (08:20)
[2018-04-01] MEDS: loratadine 10mg tablet PO SCH (08:20)
[2018-04-01] MEDS: carvedilol 6.25mg tablet PO SCH ×2 (08:20→21:16)
[2018-04-01] MEDS: amLODIPine 5mg tablet PO SCH (08:20)
[2018-04-01] MEDS: nicotine 14mg patch - 24hr TD SCH (09:43)
[2018-04-01] MEDS: clotrimazole topical cream 15gm tube TP SCH ×2 (13:00→20:00)
[2018-04-01] MEDS: fluconazole 100mg tablet PO SCH (16:24)
[2018-04-01] MEDS: diphenhydrAMINE 25mg capsule PO PRN (16:24)
[2018-04-01 19:00] VITALS: BP 112/65
[2018-04-01] MEDS: naproxen 500mg tablet PO PRN (21:16)
[2018-04-02] MEDS: nystatin 15 GM powder TP SCH ×3 (07:51→20:52)
[2018-04-02] MEDS: clotrimazole topical cream 15gm tube TP SCH ×2 (07:51→20:52)
[2018-04-02] MEDS: lactobacillus rhamnosus 10,000 MMU CELLS/CAPSULE PO SCH ×2 (07:51→20:52)
[2018-04-02] MEDS: potassium chloride 10mEq ER tablet PO SCH (07:52)
[2018-04-02] MEDS: atorvastatin 10mg tablet PO SCH (07:52)
[2018-04-02] MEDS: losartan 50mg tablet PO SCH (07:52)
[2018-04-02] MEDS: topiramate 100mg tablet PO SCH ×2 (07:52→20:52)
[2018-04-02] MEDS: carvedilol 6.25mg tablet PO SCH ×2 (07:52→20:52)
[2018-04-02] MEDS: diphenhydrAMINE 25mg capsule PO PRN (07:53)
[2018-04-02] MEDS: fluconazole 100mg tablet PO SCH (07:53)
[2018-04-02] MEDS: loratadine 10mg tablet PO SCH (07:54)
[2018-04-02] MEDS: venlafaxine XR 37.5mg cap (Q24H) PO SCH (07:54)
[2018-04-02] MEDS: nicotine 14mg patch - 24hr TD SCH (07:55)
[2018-04-02 08:00] VITALS: BP 137/67
[2018-04-02] MEDS: amLODIPine 5mg tablet PO SCH (08:04)
[2018-04-02] MEDS: naproxen 500mg tablet PO PRN (18:30)
[2018-04-02 19:00] VITALS: BP 120/68
[2018-04-03 07:48] VITALS: BP 113/60
[2018-04-03] MEDS: nystatin 15 GM powder TP SCH ×3 (08:00→20:19)
[2018-04-03] MEDS: clotrimazole topical cream 15gm tube TP SCH ×2 (08:00→20:18)
[2018-04-03] MEDS: amLODIPine 5mg tablet PO SCH (08:32)
[2018-04-03] MEDS: lactobacillus rhamnosus 10,000 MMU CELLS/CAPSULE PO SCH ×2 (08:33→19:39)
[2018-04-03] MEDS: atorvastatin 10mg tablet PO SCH (08:33)
[2018-04-03] MEDS: loratadine 10mg tablet PO SCH (08:33)
[2018-04-03] MEDS: potassium chloride 10mEq ER tablet PO SCH (08:33)
[2018-04-03] MEDS: venlafaxine XR 37.5mg cap (Q24H) PO SCH (08:33)
[2018-04-03] MEDS: losartan 50mg tablet PO SCH (08:33)
[2018-04-03] MEDS: carvedilol 6.25mg tablet PO SCH ×2 (08:33→19:39)
[2018-04-03] MEDS: topiramate 100mg tablet PO SCH ×2 (08:33→19:39)
[2018-04-03] MEDS: nicotine 14mg patch - 24hr TD SCH (08:34)
[2018-04-03] MEDS: fluconazole 100mg tablet PO SCH (08:35)
[2018-04-03 20:00] VITALS: BP 114/58
[2018-04-04 08:00] VITALS: BP 116/73
[2018-04-04] MEDS: nystatin 15 GM powder TP SCH ×3 (08:00→21:00)
[2018-04-04] MEDS: clotrimazole topical cream 15gm tube TP SCH ×2 (08:00→20:00)
[2018-04-04] MEDS: loratadine 10mg tablet PO SCH (08:00)
[2018-04-04] MEDS: carvedilol 6.25mg tablet PO SCH ×2 (08:01→21:01)
[2018-04-04] MEDS: losartan 50mg tablet PO SCH (08:01)
[2018-04-04] MEDS: atorvastatin 10mg tablet PO SCH (08:01)
[2018-04-04] MEDS: lactobacillus rhamnosus 10,000 MMU CELLS/CAPSULE PO SCH ×2 (08:01→21:00)
[2018-04-04] MEDS: potassium chloride 10mEq ER tablet PO SCH (08:01)
[2018-04-04] MEDS: topiramate 100mg tablet PO SCH ×2 (08:01→21:01)
[2018-04-04] MEDS: fluconazole 100mg tablet PO SCH (08:01)
[2018-04-04] MEDS: amLODIPine 5mg tablet PO SCH (08:01)
[2018-04-04] MEDS: venlafaxine XR 37.5mg cap (Q24H) PO SCH (08:01)
[2018-04-04] MEDS: nicotine 14mg patch - 24hr TD SCH (09:14)
[2018-04-04] MEDS: naproxen 500mg tablet PO PRN (09:16)
[2018-04-04 20:59] VITALS: BP 126/68
[2018-04-05 08:00] VITALS: BP 134/80
[2018-04-05] MEDS: nicotine 14mg patch - 24hr TD SCH (08:53)
[2018-04-05] MEDS: venlafaxine XR 37.5mg cap (Q24H) PO SCH (08:53)
[2018-04-05] MEDS: lactobacillus rhamnosus 10,000 MMU CELLS/CAPSULE PO SCH ×2 (08:53→20:26)
[2018-04-05] MEDS: losartan 50mg tablet PO SCH (08:53)
[2018-04-05] MEDS: atorvastatin 10mg tablet PO SCH (08:53)
[2018-04-05] MEDS: carvedilol 6.25mg tablet PO SCH ×2 (08:53→20:26)
[2018-04-05] MEDS: potassium chloride 10mEq ER tablet PO SCH (08:53)
[2018-04-05] MEDS: loratadine 10mg tablet PO SCH (08:53)
[2018-04-05] MEDS: topiramate 100mg tablet PO SCH ×2 (08:53→20:26)
[2018-04-05] MEDS: amLODIPine 5mg tablet PO SCH (08:53)
[2018-04-05] MEDS: fluconazole 100mg tablet PO SCH (08:54)
[2018-04-05] MEDS: nystatin 15 GM powder TP SCH ×3 (08:54→21:00)
[2018-04-05] MEDS: clotrimazole topical cream 15gm tube TP SCH ×2 (09:21→20:00)
[2018-04-05] MEDS: naproxen 500mg tablet PO PRN (14:18)
[2018-04-05 20:29] VITALS: BP 125/80
[2018-04-06 08:00] VITALS: BP 105/68
[2018-04-06] MEDS: nicotine 14mg patch - 24hr TD SCH (08:00)
[2018-04-06] MEDS: nystatin 15 GM powder TP SCH ×3 (08:00→20:14)
[2018-04-06] MEDS: clotrimazole topical cream 15gm tube TP SCH ×2 (08:00→20:00)
[2018-04-06] MEDS: atorvastatin 10mg tablet PO SCH (08:10)
[2018-04-06] MEDS: topiramate 100mg tablet PO SCH ×2 (08:10→20:09)
[2018-04-06] MEDS: carvedilol 6.25mg tablet PO SCH ×2 (08:10→20:10)
[2018-04-06] MEDS: lactobacillus rhamnosus 10,000 MMU CELLS/CAPSULE PO SCH ×2 (08:10→20:09)
[2018-04-06] MEDS: potassium chloride 10mEq ER tablet PO SCH (08:10)
[2018-04-06] MEDS: loratadine 10mg tablet PO SCH (08:10)
[2018-04-06] MEDS: venlafaxine XR 37.5mg cap (Q24H) PO SCH (08:10)
[2018-04-06] MEDS: losartan 50mg tablet PO SCH (08:10)
[2018-04-06] MEDS: amLODIPine 5mg tablet PO SCH (08:11)
[2018-04-06] MEDS: fluconazole 100mg tablet PO SCH (08:11)
[2018-04-06] MEDS: diphenhydrAMINE 25mg capsule PO PRN (11:05)
[2018-04-06] MEDS: naproxen 500mg tablet PO PRN (11:05)
[2018-04-06 19:18] VITALS: BP 124/72
[2018-04-07 08:00] VITALS: BP 117/60
[2018-04-07] MEDS: nicotine 14mg patch - 24hr TD SCH (08:00)
[2018-04-07] MEDS: nystatin 15 GM powder TP SCH ×3 (08:00→20:36)
[2018-04-07] MEDS: clotrimazole topical cream 15gm tube TP SCH ×2 (08:00→20:36)
[2018-04-07] MEDS: potassium chloride 10mEq ER tablet PO SCH (08:08)
[2018-04-07] MEDS: atorvastatin 10mg tablet PO SCH (08:08)
[2018-04-07] MEDS: loratadine 10mg tablet PO SCH (08:08)
[2018-04-07] MEDS: topiramate 100mg tablet PO SCH ×2 (08:08→20:35)
[2018-04-07] MEDS: venlafaxine XR 37.5mg cap (Q24H) PO SCH (08:08)
[2018-04-07] MEDS: losartan 50mg tablet PO SCH (08:09)
[2018-04-07] MEDS: carvedilol 6.25mg tablet PO SCH ×2 (08:09→20:36)
[2018-04-07] MEDS: amLODIPine 5mg tablet PO SCH (08:09)
[2018-04-07] MEDS: fluconazole 100mg tablet PO SCH (08:09)
[2018-04-07] MEDS: lactobacillus rhamnosus 10,000 MMU CELLS/CAPSULE PO SCH ×2 (08:09→20:35)
[2018-04-07 19:00] VITALS: BP 104/70
[2018-04-08 07:35] VITALS: BP 127/82
[2018-04-08] MEDS: carvedilol 6.25mg tablet PO SCH ×2 (07:49→20:16)
[2018-04-08] MEDS: losartan 50mg tablet PO SCH (07:49)
[2018-04-08] MEDS: nicotine 14mg patch - 24hr TD SCH (07:49)
[2018-04-08] MEDS: fluconazole 100mg tablet PO SCH (07:49)
[2018-04-08] MEDS: amLODIPine 5mg tablet PO SCH (07:49)
[2018-04-08] MEDS: venlafaxine XR 37.5mg cap (Q24H) PO SCH (07:49)
[2018-04-08] MEDS: atorvastatin 10mg tablet PO SCH (07:49)
[2018-04-08] MEDS: lactobacillus rhamnosus 10,000 MMU CELLS/CAPSULE PO SCH ×2 (07:49→20:16)
[2018-04-08] MEDS: potassium chloride 10mEq ER tablet PO SCH (07:49)
[2018-04-08] MEDS: loratadine 10mg tablet PO SCH (07:49)
[2018-04-08] MEDS: topiramate 100mg tablet PO SCH ×2 (07:49→20:16)
[2018-04-08] MEDS: clotrimazole topical cream 15gm tube TP SCH (08:00)
[2018-04-08] MEDS: nystatin 15 GM powder TP SCH ×2 (10:50→12:53)
[2018-04-08 19:00] VITALS: BP 126/73
[2018-04-08] MEDS: clotrimazole/betamethasone diproprion. cream 15gm TP SCH (20:16)
[2018-04-08] MEDS: diphenhydrAMINE 25mg capsule PO PRN (20:17)
[2018-04-09 08:00] VITALS: BP 107/68
[2018-04-09] MEDS: nicotine 14mg patch - 24hr TD SCH (08:00)
[2018-04-09] MEDS: loratadine 10mg tablet PO SCH (08:18)
[2018-04-09] MEDS: lactobacillus rhamnosus 10,000 MMU CELLS/CAPSULE PO SCH ×2 (08:19→20:23)
[2018-04-09] MEDS: amLODIPine 5mg tablet PO SCH (08:19)
[2018-04-09] MEDS: topiramate 100mg tablet PO SCH ×2 (08:19→20:23)
[2018-04-09] MEDS: fluconazole 100mg tablet PO SCH (08:19)
[2018-04-09] MEDS: carvedilol 6.25mg tablet PO SCH ×2 (08:19→20:23)
[2018-04-09] MEDS: atorvastatin 10mg tablet PO SCH (08:19)
[2018-04-09] MEDS: losartan 50mg tablet PO SCH (08:19)
[2018-04-09] MEDS: venlafaxine XR 37.5mg cap (Q24H) PO SCH (08:19)
[2018-04-09] MEDS: potassium chloride 10mEq ER tablet PO SCH (08:19)
[2018-04-09] MEDS: clotrimazole/betamethasone diproprion. cream 15gm TP SCH (10:28)
[2018-04-09 20:00] VITALS: BP 131/79
[2018-04-09] MEDS: nystatin 15 GM powder TP SCH (20:24)
[2018-04-09] MEDS: hydrocortisone 1% cream 28gm TP SCH (20:24)
[2018-04-10 08:00] VITALS: BP 120/80
[2018-04-10] MEDS: nystatin 15 GM powder TP SCH ×3 (08:00→21:00)
[2018-04-10] MEDS: nicotine 14mg patch - 24hr TD SCH (08:00)
[2018-04-10] MEDS: loratadine 10mg tablet PO SCH (08:26)
[2018-04-10] MEDS: atorvastatin 10mg tablet PO SCH (08:26)
[2018-04-10] MEDS: lactobacillus rhamnosus 10,000 MMU CELLS/CAPSULE PO SCH ×2 (08:26→20:17)
[2018-04-10] MEDS: losartan 50mg tablet PO SCH (08:26)
[2018-04-10] MEDS: fluconazole 100mg tablet PO SCH (08:27)
[2018-04-10] MEDS: amLODIPine 5mg tablet PO SCH (08:27)
[2018-04-10] MEDS: carvedilol 6.25mg tablet PO SCH ×2 (08:27→20:17)
[2018-04-10] MEDS: topiramate 100mg tablet PO SCH ×2 (08:36→20:17)
[2018-04-10] MEDS: potassium chloride 10mEq ER tablet PO SCH (08:36)
[2018-04-10] MEDS: diphenhydrAMINE 25mg capsule PO PRN (08:37)
[2018-04-10] MEDS: hydrocortisone 1% cream 28gm TP SCH ×2 (08:37→20:00)
[2018-04-10] MEDS: venlafaxine XR 37.5mg cap (Q24H) PO SCH (08:37)
[2018-04-10 20:00] VITALS: BP 101/56
[2018-04-11 08:00] VITALS: BP 131/80
[2018-04-11] MEDS: hydrocortisone 1% cream 28gm TP SCH ×2 (08:00→20:19)
[2018-04-11] MEDS: nystatin 15 GM powder TP SCH ×3 (08:00→20:19)
[2018-04-11] MEDS: amLODIPine 5mg tablet PO SCH (08:11)
[2018-04-11] MEDS: carvedilol 6.25mg tablet PO SCH ×2 (08:11→20:19)
[2018-04-11] MEDS: lactobacillus rhamnosus 10,000 MMU CELLS/CAPSULE PO SCH ×2 (08:11→20:19)
[2018-04-11] MEDS: loratadine 10mg tablet PO SCH (08:11)
[2018-04-11] MEDS: losartan 50mg tablet PO SCH (08:11)
[2018-04-11] MEDS: atorvastatin 10mg tablet PO SCH (08:11)
[2018-04-11] MEDS: potassium chloride 10mEq ER tablet PO SCH (08:11)
[2018-04-11] MEDS: topiramate 100mg tablet PO SCH ×2 (08:11→20:19)
[2018-04-11] MEDS: venlafaxine XR 37.5mg cap (Q24H) PO SCH (08:12)
[2018-04-11] MEDS: fluconazole 100mg tablet PO SCH (08:12)
[2018-04-11 19:39] VITALS: BP 122/67
[2018-04-12] MEDS: atorvastatin 10mg tablet PO SCH (07:45)
[2018-04-12] MEDS: losartan 50mg tablet PO SCH (07:45)
[2018-04-12] MEDS: potassium chloride 10mEq ER tablet PO SCH (07:45)
[2018-04-12] MEDS: carvedilol 6.25mg tablet PO SCH ×2 (07:45→20:24)
[2018-04-12] MEDS: topiramate 100mg tablet PO SCH ×2 (07:45→20:24)
[2018-04-12] MEDS: lactobacillus rhamnosus 10,000 MMU CELLS/CAPSULE PO SCH ×2 (07:45→20:24)
[2018-04-12] MEDS: venlafaxine XR 37.5mg cap (Q24H) PO SCH (07:45)
[2018-04-12] MEDS: fluconazole 100mg tablet PO SCH (07:45)
[2018-04-12] MEDS: amLODIPine 5mg tablet PO SCH (07:45)
[2018-04-12] MEDS: loratadine 10mg tablet PO SCH (07:45)
[2018-04-12] MEDS: nystatin 15 GM powder TP SCH ×3 (07:49→20:29)
[2018-04-12 08:00] VITALS: BP 127/87
[2018-04-12] MEDS: hydrocortisone 1% cream 28gm TP SCH ×2 (08:00→20:25)
[2018-04-12 19:35] VITALS: BP 137/84
[2018-04-13 07:52] VITALS: BP 120/67
[2018-04-13] MEDS: potassium chloride 10mEq ER tablet PO SCH (08:27)
[2018-04-13] MEDS: losartan 50mg tablet PO SCH (08:27)
[2018-04-13] MEDS: loratadine 10mg tablet PO SCH (08:27)
[2018-04-13] MEDS: carvedilol 6.25mg tablet PO SCH ×2 (08:27→20:31)
[2018-04-13] MEDS: atorvastatin 10mg tablet PO SCH (08:27)
[2018-04-13] MEDS: topiramate 100mg tablet PO SCH ×2 (08:27→20:31)
[2018-04-13] MEDS: amLODIPine 5mg tablet PO SCH (08:28)
[2018-04-13] MEDS: venlafaxine XR 37.5mg cap (Q24H) PO SCH (08:28)
[2018-04-13] MEDS: lactobacillus rhamnosus 10,000 MMU CELLS/CAPSULE PO SCH ×2 (08:28→20:31)
[2018-04-13] MEDS: nystatin 15 GM powder TP SCH ×3 (08:31→20:32)
[2018-04-13] MEDS: hydrocortisone 1% cream 28gm TP SCH ×2 (08:31→20:31)
[2018-04-13] MEDS: naproxen 500mg tablet PO PRN (16:59)
[2018-04-13 20:06] VITALS: BP 144/84
[2018-04-14] MEDS: hydrocortisone 1% cream 28gm TP SCH ×2 (08:00→20:14)
[2018-04-14] MEDS: nystatin 15 GM powder TP SCH ×3 (08:00→20:15)
[2018-04-14] MEDS: losartan 50mg tablet PO SCH (08:12)
[2018-04-14] MEDS: venlafaxine XR 37.5mg cap (Q24H) PO SCH (08:13)
[2018-04-14] MEDS: topiramate 100mg tablet PO SCH ×2 (08:13→20:14)
[2018-04-14] MEDS: atorvastatin 10mg tablet PO SCH (08:13)
[2018-04-14] MEDS: loratadine 10mg tablet PO SCH (08:13)
[2018-04-14] MEDS: carvedilol 6.25mg tablet PO SCH ×2 (08:13→20:14)
[2018-04-14] MEDS: lactobacillus rhamnosus 10,000 MMU CELLS/CAPSULE PO SCH ×2 (08:13→20:14)
[2018-04-14] MEDS: potassium chloride 10mEq ER tablet PO SCH (08:13)
[2018-04-14] MEDS: amLODIPine 5mg tablet PO SCH (08:13)
[2018-04-14 08:17] VITALS: BP 131/73
[2018-04-14 19:00] VITALS: BP 126/57
[2018-04-15 07:46] VITALS: BP 120/69
[2018-04-15] MEDS: venlafaxine XR 37.5mg cap (Q24H) PO SCH (08:35)
[2018-04-15] MEDS: loratadine 10mg tablet PO SCH (08:35)
[2018-04-15] MEDS: potassium chloride 10mEq ER tablet PO SCH (08:36)
[2018-04-15] MEDS: topiramate 100mg tablet PO SCH ×2 (08:36→20:27)
[2018-04-15] MEDS: losartan 50mg tablet PO SCH (08:36)
[2018-04-15] MEDS: lactobacillus rhamnosus 10,000 MMU CELLS/CAPSULE PO SCH ×2 (08:36→20:27)
[2018-04-15] MEDS: atorvastatin 10mg tablet PO SCH (08:37)
[2018-04-15] MEDS: amLODIPine 5mg tablet PO SCH (08:37)
[2018-04-15] MEDS: carvedilol 6.25mg tablet PO SCH ×2 (08:37→20:27)
[2018-04-15] MEDS: nystatin 15 GM powder TP SCH ×3 (08:55→20:28)
[2018-04-15] MEDS: hydrocortisone 1% cream 28gm TP SCH ×2 (09:00→20:00)
[2018-04-15 19:00] VITALS: BP 111/78
[2018-04-16] MEDS: losartan 50mg tablet PO SCH (07:33)
[2018-04-16] MEDS: potassium chloride 10mEq ER tablet PO SCH (07:33)
[2018-04-16] MEDS: topiramate 100mg tablet PO SCH ×2 (07:33→21:29)
[2018-04-16] MEDS: lactobacillus rhamnosus 10,000 MMU CELLS/CAPSULE PO SCH ×2 (07:33→20:00)
[2018-04-16] MEDS: loratadine 10mg tablet PO SCH (07:33)
[2018-04-16] MEDS: carvedilol 6.25mg tablet PO SCH ×2 (07:33→21:29)
[2018-04-16] MEDS: atorvastatin 10mg tablet PO SCH (07:33)
[2018-04-16] MEDS: venlafaxine XR 37.5mg cap (Q24H) PO SCH (07:33)
[2018-04-16] MEDS: amLODIPine 5mg tablet PO SCH (07:33)
[2018-04-16 08:00] VITALS: BP 115/74
[2018-04-16] MEDS: hydrocortisone 1% cream 28gm TP SCH ×2 (12:04→21:31)
[2018-04-16] MEDS: nystatin 15 GM powder TP SCH ×3 (12:05→21:31)
[2018-04-16 19:00] VITALS: BP 103/48
[2018-04-17 08:00] VITALS: BP 109/75
[2018-04-17] MEDS: carvedilol 6.25mg tablet PO SCH ×2 (08:26→20:49)
[2018-04-17] MEDS: loratadine 10mg tablet PO SCH (08:26)
[2018-04-17] MEDS: potassium chloride 10mEq ER tablet PO SCH (08:27)
[2018-04-17] MEDS: venlafaxine XR 37.5mg cap (Q24H) PO SCH (08:27)
[2018-04-17] MEDS: losartan 50mg tablet PO SCH (08:27)
[2018-04-17] MEDS: nystatin 15 GM powder TP SCH ×3 (08:28→20:49)
[2018-04-17] MEDS: topiramate 100mg tablet PO SCH ×2 (08:28→20:48)
[2018-04-17] MEDS: hydrocortisone 1% cream 28gm TP SCH ×2 (08:28→20:49)
[2018-04-17] MEDS: atorvastatin 10mg tablet PO SCH (08:28)
[2018-04-17] MEDS: amLODIPine 5mg tablet PO SCH (08:28)
[2018-04-17 20:00] VITALS: BP 144/81
[2018-04-18 08:00] VITALS: BP 106/68
[2018-04-18] MEDS: nystatin 15 GM powder TP SCH ×3 (08:00→20:42)
[2018-04-18] MEDS: hydrocortisone 1% cream 28gm TP SCH ×2 (08:00→20:42)
[2018-04-18] MEDS: losartan 50mg tablet PO SCH (08:08)
[2018-04-18] MEDS: venlafaxine XR 37.5mg cap (Q24H) PO SCH (08:08)
[2018-04-18] MEDS: loratadine 10mg tablet PO SCH (08:08)
[2018-04-18] MEDS: carvedilol 6.25mg tablet PO SCH ×2 (08:08→20:42)
[2018-04-18] MEDS: topiramate 100mg tablet PO SCH ×2 (08:08→20:42)
[2018-04-18] MEDS: amLODIPine 5mg tablet PO SCH (08:08)
[2018-04-18] MEDS: potassium chloride 10mEq ER tablet PO SCH (08:09)
[2018-04-18] MEDS: atorvastatin 10mg tablet PO SCH (08:09)
[2018-04-18 19:34] VITALS: BP 117/56
[2018-04-19] MEDS: nystatin 15 GM powder TP SCH ×3 (07:48→21:00)
[2018-04-19] MEDS: carvedilol 6.25mg tablet PO SCH ×2 (07:49→20:33)
[2018-04-19] MEDS: atorvastatin 10mg tablet PO SCH (07:49)
[2018-04-19] MEDS: loratadine 10mg tablet PO SCH (07:49)
[2018-04-19] MEDS: venlafaxine XR 37.5mg cap (Q24H) PO SCH (07:49)
[2018-04-19] MEDS: topiramate 100mg tablet PO SCH ×2 (07:49→20:33)
[2018-04-19] MEDS: losartan 50mg tablet PO SCH (07:49)
[2018-04-19] MEDS: amLODIPine 5mg tablet PO SCH (07:49)
[2018-04-19] MEDS: potassium chloride 10mEq ER tablet PO SCH (07:49)
[2018-04-19 08:00] VITALS: BP 142/80
[2018-04-19] MEDS: hydrocortisone 1% cream 28gm TP SCH ×2 (08:00→20:00)
[2018-04-19 19:24] VITALS: BP 139/76
[2018-04-20 07:49] VITALS: BP 134/80
[2018-04-20] MEDS: losartan 50mg tablet PO SCH (08:37)
[2018-04-20] MEDS: loratadine 10mg tablet PO SCH (08:37)
[2018-04-20] MEDS: topiramate 100mg tablet PO SCH ×2 (08:37→20:15)
[2018-04-20] MEDS: venlafaxine XR 37.5mg cap (Q24H) PO SCH (08:38)
[2018-04-20] MEDS: atorvastatin 10mg tablet PO SCH (08:38)
[2018-04-20] MEDS: carvedilol 6.25mg tablet PO SCH ×2 (08:38→20:15)
[2018-04-20] MEDS: potassium chloride 10mEq ER tablet PO SCH (08:38)
[2018-04-20] MEDS: amLODIPine 5mg tablet PO SCH (08:38)
[2018-04-20] MEDS: diphenhydrAMINE 25mg capsule PO PRN (08:41)
[2018-04-20] MEDS: acetaminophen 325mg tablet PO PRN (08:42)
[2018-04-20] MEDS: hydrocortisone 1% cream 28gm TP SCH ×2 (08:43→20:26)
[2018-04-20] MEDS: nystatin 15 GM powder TP SCH ×3 (08:43→20:26)
[2018-04-20] MEDS ORDERED: NAPR-56 PO (08:46)
[2018-04-20] MEDS: naproxen 500mg tablet PO PRN (15:56)
[2018-04-20 19:05] VITALS: BP 134/76
[2018-04-21] MEDS: amLODIPine 5mg tablet PO SCH (07:58)
[2018-04-21] MEDS: topiramate 100mg tablet PO SCH ×2 (07:59→20:15)
[2018-04-21] MEDS: potassium chloride 10mEq ER tablet PO SCH (07:59)
[2018-04-21] MEDS: venlafaxine XR 37.5mg cap (Q24H) PO SCH (08:00)
[2018-04-21] MEDS: hydrocortisone 1% cream 28gm TP SCH ×2 (08:00→20:15)
[2018-04-21] MEDS: nystatin 15 GM powder TP SCH ×3 (08:00→20:15)
[2018-04-21] MEDS: carvedilol 6.25mg tablet PO SCH ×2 (08:00→20:15)
[2018-04-21] MEDS: loratadine 10mg tablet PO SCH (08:01)
[2018-04-21] MEDS: atorvastatin 10mg tablet PO SCH (08:01)
[2018-04-21] MEDS: losartan 50mg tablet PO SCH (08:01)
[2018-04-21 08:14] VITALS: BP 138/88
[2018-04-21 19:00] VITALS: BP 139/80
[2018-04-21] MEDS: naproxen 500mg tablet PO PRN (20:15)
[2018-04-22 07:39] VITALS: BP 111/78
[2018-04-22] MEDS: topiramate 100mg tablet PO SCH ×2 (07:58→20:22)
[2018-04-22] MEDS: loratadine 10mg tablet PO SCH (07:59)
[2018-04-22] MEDS: amLODIPine 5mg tablet PO SCH (07:59)
[2018-04-22] MEDS: atorvastatin 10mg tablet PO SCH (07:59)
[2018-04-22] MEDS: losartan 50mg tablet PO SCH (07:59)
[2018-04-22] MEDS: venlafaxine XR 37.5mg cap (Q24H) PO SCH (07:59)
[2018-04-22] MEDS: carvedilol 6.25mg tablet PO SCH ×2 (07:59→20:21)
[2018-04-22] MEDS: potassium chloride 10mEq ER tablet PO SCH (07:59)
[2018-04-22] MEDS: nystatin 15 GM powder TP SCH ×3 (08:16→20:22)
[2018-04-22] MEDS: hydrocortisone 1% cream 28gm TP SCH ×2 (08:17→20:22)
[2018-04-22] MEDS ORDERED: NAPR-56 PO (12:23)
[2018-04-22] MEDS ORDERED: TOP100T PO (12:23)
[2018-04-22] MEDS ORDERED: ATOR10TA PO (12:23)
[2018-04-22] MEDS ORDERED: LOSA50TA37 PO (12:23)
[2018-04-22] MEDS ORDERED: AMLO5TAB16 PO (12:23)
[2018-04-22] MEDS ORDERED: VENL75TA90 PO (12:23)
[2018-04-22] MEDS ORDERED: POTA10TA19 PO (12:23)
[2018-04-22] MEDS ORDERED: ALBU8.5H8 IH (12:23)
[2018-04-22] MEDS ORDERED: CARV6.253 PO (12:23)
[2018-04-22] MEDS ORDERED: LORA10TA65 PO (12:23)
[2018-04-22 19:00] VITALS: BP 142/73
[2018-04-22] MEDS: naproxen 500mg tablet PO PRN (20:22)
[2018-04-23 07:45] VITALS: BP 131/77
[2018-04-23] MEDS: carvedilol 6.25mg tablet PO SCH ×2 (07:59→20:17)
[2018-04-23] MEDS: venlafaxine XR 37.5mg cap (Q24H) PO SCH (07:59)
[2018-04-23] MEDS: topiramate 100mg tablet PO SCH ×2 (08:00→20:17)
[2018-04-23] MEDS: amLODIPine 5mg tablet PO SCH (08:00)
[2018-04-23] MEDS: losartan 50mg tablet PO SCH (08:00)
[2018-04-23] MEDS: loratadine 10mg tablet PO SCH (08:00)
[2018-04-23] MEDS: atorvastatin 10mg tablet PO SCH (08:00)
[2018-04-23] MEDS: potassium chloride 10mEq ER tablet PO SCH (08:00)
[2018-04-23] MEDS: hydrocortisone 1% cream 28gm TP SCH ×2 (08:30→20:17)
[2018-04-23] MEDS: nystatin 15 GM powder TP SCH ×3 (08:30→20:17)
[2018-04-23 19:00] VITALS: BP 117/68
[2018-04-24] MEDS: hydrocortisone 1% cream 28gm TP SCH ×3 (06:00→20:00)
[2018-04-24 08:00] VITALS: BP 119/79
[2018-04-24] MEDS: losartan 50mg tablet PO SCH (09:03)
[2018-04-24] MEDS: atorvastatin 10mg tablet PO SCH (09:03)
[2018-04-24] MEDS: venlafaxine XR 37.5mg cap (Q24H) PO SCH (09:03)
[2018-04-24] MEDS: potassium chloride 10mEq ER tablet PO SCH (09:03)
[2018-04-24] MEDS: amLODIPine 5mg tablet PO SCH (09:03)
[2018-04-24] MEDS: loratadine 10mg tablet PO SCH (09:03)
[2018-04-24] MEDS: topiramate 100mg tablet PO SCH ×2 (09:04→20:52)
[2018-04-24] MEDS: carvedilol 6.25mg tablet PO SCH ×2 (09:04→20:52)
[2018-04-24] MEDS: nystatin 15 GM powder TP SCH ×3 (09:27→20:54)
[2018-04-24 19:14] VITALS: BP 143/84
[2018-04-25 08:00] VITALS: BP 134/86
[2018-04-25] MEDS ORDERED: paliperidone palmitate 156 mg/ml inj.**IM only IM ONE (08:20)
[2018-04-25] MEDS: venlafaxine XR 37.5mg cap (Q24H) PO SCH (08:26)
[2018-04-25] MEDS: amLODIPine 5mg tablet PO SCH (08:26)
[2018-04-25] MEDS: potassium chloride 10mEq ER tablet PO SCH (08:27)
[2018-04-25] MEDS: nystatin 15 GM powder TP SCH (08:27)
[2018-04-25] MEDS: carvedilol 6.25mg tablet PO SCH (08:27)
[2018-04-25] MEDS: atorvastatin 10mg tablet PO SCH (08:27)
[2018-04-25] MEDS: losartan 50mg tablet PO SCH (08:27)
[2018-04-25] MEDS: loratadine 10mg tablet PO SCH (08:27)
[2018-04-25] MEDS: topiramate 100mg tablet PO SCH (08:27)
[2018-04-25] MEDS: hydrocortisone 1% cream 28gm TP SCH (08:27)
== END 2018-04-25 10:20 | disposition home or self-care (01) | DRG 885 ==
LOC: ADULT MH 15:30
PROVIDERS: ADMIT Psychiatry & Neurology Psychiatry; ATTEND Psychiatry & Neurology Psychiatry
DX: F33.2 Major depressive disorder, recurrent severe without psychotic features (principal); Z68.42 Body mass index [BMI] 45.0-49.9, adult; R45.851 Suicidal ideations; F20.9 Schizophrenia, unspecified; E66.9 Obesity, unspecified; L40.9 Psoriasis, unspecified; J44.9 Chronic obstructive pulmonary disease, unspecified; B37.2 Candidiasis of skin and nail; E78.5 Hyperlipidemia, unspecified; F41.9 Anxiety disorder, unspecified; I10 Essential (primary) hypertension; L30.4 Erythema intertrigo; F17.210 Nicotine dependence, cigarettes, uncomplicated; Z59.0 Homelessness; Z79.899 Other long term (current) drug therapy; Z91.19 Patient's noncompliance with other medical treatment and regimen; Z98.51 Tubal ligation status; Z81.8 Family history of other mental and behavioral disorders
CPT/HCPCS: 36415; 80053; 80061; 80305; 81003; 83036; 84443; 85025; 87070; 94640; 94760; 99285; Q0163

== ENCOUNTER 2018-10-20 16:06 | Emergency (ER) | payer MEDICARE, MEDICAID ==
[~2018-10-20] VITALS: Ht 172.7 cm; Wt 127.3 kg
[~2018-10-20 16:06] MED LIST changes: -AMLO10TA PO; +AMLO5TAB16 PO; +ATOR10TA PO; -CARV-49 PO; +CARV6.253 PO; -ESCI10TA54 PO; -FLUT1AER IH; -FURO-149 PO; -HALO5TAB PO; -LORA10CA9 PO; +LORA10TA65 PO; -LOSA50TA3 PO; +LOSA50TA64 PO; +TOP100T PO; -TOPI50TA24 PO; -UMEC62.5 IH; +VENL75TA90 PO
[2018-10-20 17:23] LABS: BASOPHILS % (AUTO) 0.3 % (0-1); EOSINOPHILS # (AUTO) 0.3 X10'3 (0-0.9); HEMATOCRIT 38.4 % (35.0-45.0); HEMOGLOBIN 12.5 g/dl (12.0-16.0); LYMPHOCYTES # (AUTO) 1.8 X10'3 (1.1-4.8); LYMPHOCYTES % (AUTO) 14.6 % (21-51); MEAN CORPUSCULAR HGB CONC 32.5 % (33.0-36.5); MEAN CORPUSCULAR VOLUME 92.4 FL (78-98); MEAN PLATELET VOLUME 7.2 FL (7.4-10.4); MONOCYTES # (AUTO) 1.5 X10'3 (0-0.9); MONOCYTES % (AUTO) 11.7 % (2-12); NEUTROPHILS # (AUTO) 8.9 X10'3 (1.8-7.7); NEUTROPHILS % (AUTO) 71.4 % (42-75); PLATELET COUNT 268 X10'3 (140-440); RED BLOOD COUNT 4.16 X10'6 (4.20-5.60); RED CELL DISTRIBUTION WIDTH 14.1 % (11.5-14.5); WHITE BLOOD COUNT 12.5 X10'3 (4.5-11.0)
[2018-10-20] MEDS ORDERED: PALI117D IM (17:28)
[2018-10-20] MEDS ORDERED: AMLO10TA28 PO (17:32)
[2018-10-20 18:09] LABS: ALANINE AMINOTRANSFERASE 34 U/L (12-78); ALBUMIN 3.2 G/DL (3.4-5.0); ALBUMIN/GLOBULIN RATIO 0.7 (1.1-1.5); ALKALINE PHOSPHATASE 125 IU/L (46-116); ASPARTATE AMINO TRANSFERASE 19 U/L (10-37); BILIRUBIN,TOTAL 0.2 MG/DL (0.1-1.0); ETHANOL < 0.010 GM/DL (0.0-0.010); TOTAL CARBON DIOXIDE 20.7 MMOL/L (24-32); TOTAL PROTEIN 7.7 G/DL (6.4-8.2)
[2018-10-20 18:20] LABS: ANION GAP 15 (8-16); BLOOD UREA NITROGEN 19 MG/DL (7-18); BUN/CREATININE RATIO 22.1 (6.6-38.0); CALCIUM 8.8 MG/DL (8.5-10.1); CHLORIDE 104 MMOL/L (99-107); CREATININE 0.86 MG/DL (0.40-0.90); GLUCOSE 109 MG/DL (70-104); POTASSIUM 3.8 MMOL/L (3.5-5.1); SODIUM 140 MMOL/L (135-145); eGFR 68 ML/MIN
[2018-10-20 19:09] LABS: CLARITY,URINE SLIGHTLY CLOUDY (Clear); COLOR,URINE YELLOW (Yellow); GLUCOSE, URINE NEGATIVE (Neg); KETONES,URINE NEGATIVE (Neg); LEUKOCYTE ESTERASE ,URINE TRACE (Neg); NITRITES, URINE NEGATIVE (Neg); OCCULT BLOOD,URINE SMALL (Neg); PROTEIN,URINE TRACE mg/dl (Neg); UROBILINOGEN,URINE 0.2 E.U/dL (0.2-1.0)
[2018-10-20 19:24] LABS: URINE AMPHETAMINE SCREEN NEGATIVE (Neg); URINE BARBITUATE SCREEN NEGATIVE (Neg); URINE BENZODIAZEPINES SCREEN NEGATIVE (Neg); URINE CANNABINOID SCREEN NEGATIVE (Neg); URINE COCAINE SCREEN NEGATIVE (Neg); URINE METHADONE SCREEN NEGATIVE (Neg); URINE OPIATE SCREEN NEGATIVE (Neg); URINE PHENCYCLIDINE SCREEN NEGATIVE (Neg)
[2018-10-20] MEDS ORDERED: VENL150T3 PO (19:24)
[2018-10-20] MEDS ORDERED: CLOT12CR TOP (19:24)
[2018-10-20 19:26] LABS: UA COLLECTION TYPE CLN CATCH MIDSTREAM
[2018-10-20 19:40] LABS: BACTERIA,URINE 3+ /HPF (Neg); RBC,URINE 0-2 /HPF (0-2); SQUAMOUS EPITHELIAL CELL,UR FEW /LPF (FEW)
[2018-10-20] MEDS: clotrimazole topical cream 15gm tube TP SCH (20:42)
[2018-10-20] MEDS ORDERED: topiramate 100mg tablet PO ONE (20:45)
[2018-10-20] MEDS: carvedilol 6.25mg tablet PO SCH (21:15)
[2018-10-20] MEDS: naproxen 500mg tablet PO PRN (21:15)
[2018-10-21] MEDS: clotrimazole topical cream 15gm tube TP SCH ×2 (08:00→19:56)
[2018-10-21] MEDS: amLODIPine 5mg tablet PO SCH (08:11)
[2018-10-21] MEDS: losartan 50mg tablet PO SCH (08:11)
[2018-10-21] MEDS: atorvastatin 10mg tablet PO SCH (08:11)
[2018-10-21] MEDS: venlafaxine XR 75mg capsule (Q24H) PO SCH (08:12)
[2018-10-21] MEDS: topiramate 100mg tablet PO SCH ×2 (08:12→19:56)
[2018-10-21] MEDS: naproxen 500mg tablet PO PRN (08:12)
[2018-10-21] MEDS: carvedilol 6.25mg tablet PO SCH ×2 (08:12→19:55)
[2018-10-21] MEDS: loratadine 10mg tablet PO SCH (08:12)
[2018-10-21] MEDS: potassium chloride 10mEq ER tablet PO SCH (08:12)
[2018-10-22] MEDS ORDERED: CefTRIAXone 1000mg IM Kit (w/lidocaine diluent) IM ONE (07:55)
[2018-10-22] MEDS: losartan 50mg tablet PO SCH (08:00)
[2018-10-22] MEDS: atorvastatin 10mg tablet PO SCH (08:00)
[2018-10-22] MEDS: loratadine 10mg tablet PO SCH (08:00)
[2018-10-22] MEDS: clotrimazole topical cream 15gm tube TP SCH ×2 (08:00→20:00)
[2018-10-22] MEDS: topiramate 100mg tablet PO SCH ×2 (08:00→20:03)
[2018-10-22] MEDS: venlafaxine XR 75mg capsule (Q24H) PO SCH (08:00)
[2018-10-22] MEDS: amLODIPine 5mg tablet PO SCH (08:00)
[2018-10-22] MEDS: potassium chloride 10mEq ER tablet PO SCH (08:00)
[2018-10-22] MEDS: carvedilol 6.25mg tablet PO SCH ×2 (08:00→20:03)
[2018-10-22 19:50] VITALS: BP 125/69
== END 2018-10-22 20:08 ==
LOC: ER 16:07
DX: F79 Unspecified intellectual disabilities (principal); I50.9 Heart failure, unspecified; E78.00 Pure hypercholesterolemia, unspecified; I11.0 Hypertensive heart disease with heart failure; Z98.890 Other specified postprocedural states; Z56.0 Unemployment, unspecified; Z88.8 Allergy status to other drugs, medicaments and biological substances; Z79.899 Other long term (current) drug therapy
CPT/HCPCS: 36415; 80053; 80305; 80320; 81001; 84443; 85025; 96372; 99285; J0696

== ENCOUNTER 2018-10-22 18:00 | Inpatient (IN) | payer MEDICARE, MEDICAID ==
[~2018-10-22] VITALS: Ht 172.7 cm; Wt 117.3 kg
[~2018-10-22 18:00] MED LIST changes: -ALBU8.5H8 IH; +AMLO10TA28 PO; -AMLO5TAB16 PO; +CLOT12CR TOP; +PALI117D IM; +VENL150T3 PO; -VENL75TA90 PO
[2018-10-22 20:45] VITALS: BP 116/57
--- NOTE | 2018-10-22 21:45 | NUR ---
Pt admitted to [facility] from the ER, was brought up in a wheelchair at 2100 by [facility]. Skin check was completed by myself and Elly. Pt is on LPS conservatorship and was residing at a [facility] and pt started to refuse to shower, she became increasingly agitated and was yelling at banner and [facility] staff when they were prompting her to shower, she has been given a 30 day notice at the [facility] due to this. Pt has been compliant with meds at the [facility] but states she has had increasing depression including anhedonia, poor appetite, feeling down, reports that on she had thoughts of suicide because "things were building up", but denies current S/I. Affect blunted, eye contact fair, has strong body odor, did state she will shower "tomorrow" when offered. She denies any psychotic symtoms, but hasnt been showering due to belief that she will be burned if she does.
[2018-10-22] MEDS ORDERED: tuberculin, purif. prot. deriv. 5 units/0.1ml ID ONE (23:55)
[2018-10-23] MEDS ORDERED: acetaminophen 325mg tablet PO PRN (00:05)
[2018-10-23] MEDS ORDERED: magnesium hydroxide 30ml (MOM) UD suspension PO PRN (00:05)
[2018-10-23] MEDS ORDERED: mag hydrox/Alum hydrox/simeth 30ml oral suspension PO PRN (00:05)
[2018-10-23] MEDS: loratadine 10mg tablet PO SCH (07:38)
[2018-10-23] MEDS: topiramate 100mg tablet PO SCH ×2 (07:38→20:52)
[2018-10-23] MEDS: atorvastatin 10mg tablet PO SCH (07:39)
[2018-10-23] MEDS: venlafaxine XR 75mg capsule (Q24H) PO SCH (07:39)
[2018-10-23] MEDS: amLODIPine 5mg tablet PO SCH (07:42)
[2018-10-23] MEDS: carvedilol 6.25mg tablet PO SCH ×2 (07:42→20:52)
[2018-10-23] MEDS: potassium chloride 10mEq ER tablet PO SCH (07:43)
[2018-10-23] MEDS: losartan 50mg tablet PO SCH (07:43)
[2018-10-23] MEDS: clotrimazole topical cream 15gm tube TP SCH ×2 (07:44→20:00)
[2018-10-23] MEDS: nicotine 21mg patch - 24 hr TD SCH (07:44)
[2018-10-23 08:29] VITALS: BP 122/80
[2018-10-23 10:50] LABS: HEMOGLOBIN A1C 5.8 % (4.5-6.2)
[2018-10-23 11:13] LABS: CHOL/HDL RATIO 4.3 (0.00-4.99); CHOLESTEROL 151 MG/DL (0-200); HDL CHOLESTEROL 35 MG/DL (35-60); LDL CHOLESTEROL 89 MG/DL (50-100); TRIGLYCERIDES 92 MG/DL (20-135)
--- NOTE | 2018-10-23 11:57 | NUR ---
Chief Complaint GD, LPS conserved, threatening others at her board and care, was declining showers Legal hold:[[id number]] Client on involuntary status for GD Report received from nurse Vital with use of SBAR Why are they here:[Patient is LPS conserved and can no longer stay at her current board and care due to refusing showers]. Diagnosis/presenting symptoms:[Disorganized thinking and behavior, psychosis] Assessment What has happened this shift:[Met with patient at beginning of shift. Patient agreed to shower. She allowed staff to do her laundry and helped tidy her room. She was compliant with medication, TB test, skincare and hygiene. Patient was up on the unit participating in the milieu. She denies depression or suicidal ideation. She states she was not happy at the last board and care.] S/I, H/I:[denies] A/VH: [denies] Sleep:[good] ADL's:[able to shower independently and dress.] Group attendance:[No groups today] Were meds taken:[yes] Any med S/E[no] Mental Status Exam Appearance:[disheveled, clean, rash on skin] Eye contact:[goof] Behavior:[calm, appropriate] Speech:[clear, short answers] Mood:[euthymic] Affect:[restricted] Thought process:[linear] Thought Content:[] Cognition:[Good] Insight:[Fair] Judgment:[fair] Interventions PRN's used:[no] Therapeutic interventions:[Q15 minute checks for safety, active listening, medication education, milieu participation] Restraints/seclusion/emergency medication:[No] Justification of Continued Inpatient Treatment:[Patient is LPS conserved for GD and will need medication stabilization and placement]
[2018-10-23 19:57] VITALS: BP 144/91
--- NOTE | 2018-10-24 01:10 | NUR ---
RN PROGRESS NOTE: Chief Complaint: Grave disability Legal hold:5150 Client on involuntary status for GD. Report received from nurse Handsel with use of SBAR Why are they here: The patient is LPS conserved and was living at board and care where she stopped bathing. She was showing increased agitation toward staff and smelled of body odor and urine, so she was placed on 5150. Diagnosis/presenting symptoms:Chronic depression, agitation, psychosis, disorganized thinking. Assessment What has happened this shift: The patient was found in the group room. She agreed to 1:1 at her bedside. She presents as extremely depressed with flat affect. She reports that the b&c people said she didn't shower, but the patient states that they just didn't keep track. "It was OK for a while, but they started harassing me about showers, and it upset me." All other questions received minimal response and vague answers. The patient went back to group room for a while and sat alone. She went to bed right after HS med pass. S/I, H/I: Denies A/VH: Denies Sleep: Reports good sleep. ADL's:Independent with prompting. Group attendance: No groups today. Were meds taken: Yes Any med S/E: None noted. Mental Status Exam Appearance: Disheveled overweight woman in street clothes. Eye contact: Poor, looks down. Behavior: Quiet, sits by herself. Speech: Quiet, low volume. Mood: depressed. Affect: Flat Thought process: Linear. Thought Content: Not known. Cognition: A/O. Insight: Fair. Judgment: Intact. Interventions PRN's used: None Therapeutic interventions: 1:1, provided safe environment, medication education, q15 minute safety checks. Restraints/seclusion/emergency medication: None Justification of Continued Inpatient Treatment: The patient is GD and extremely depressed. She still needs stabilization and placement.
[2018-10-24] MEDS: nicotine 21mg patch - 24 hr TD SCH (07:08)
[2018-10-24] MEDS: clotrimazole topical cream 15gm tube TP SCH ×2 (07:08→20:00)
[2018-10-24] MEDS: amLODIPine 5mg tablet PO SCH (07:09)
[2018-10-24] MEDS: loratadine 10mg tablet PO SCH (07:09)
[2018-10-24] MEDS: venlafaxine XR 75mg capsule (Q24H) PO SCH (07:09)
[2018-10-24] MEDS: potassium chloride 10mEq ER tablet PO SCH (07:09)
[2018-10-24] MEDS: topiramate 100mg tablet PO SCH ×2 (07:09→20:31)
[2018-10-24] MEDS: losartan 50mg tablet PO SCH (07:09)
[2018-10-24] MEDS: atorvastatin 10mg tablet PO SCH (07:09)
[2018-10-24 08:00] VITALS: BP 111/75
[2018-10-24] MEDS: carvedilol 6.25mg tablet PO SCH ×2 (08:11→20:31)
--- NOTE | 2018-10-24 10:38 | NUR ---
Patient is refusing to shower. She was given a UA container and instructed on what to do to obtain a clean catch urine specimen. She has been uncooperative so far with the urine sample. She did allow this nurse to place clotrimazole. Patient smells very strong of urine and body odor and has reddened areas under breasts and in groin area.
--- NOTE | 2018-10-24 10:41 | NUR ---
RN Progress note: Chief Complaint GD, LPS conserved, threatening others at her board and care, was declining showers Legal hold:[5150] Client on involuntary status for GD Report received from nurse Chepe with use of SBAR Why are they here:[Patient is LPS conserved and can no longer stay at her current board and care due to refusing showers and noncompliant with care]. Diagnosis/presenting symptoms:[Disorganized thinking and behavior, psychosis] Assessment What has happened this shift: Patient ws up before breakfast having coffee. She was compliant with all medications. She told this nurse she would shower after breakfast. Once breakfast was over she refused to shower and went to sleep in her room. This nurse instructed patient on how to provide a clean catch urine specimen. Patient did not acknowledge the urine sample cup. This nurse will keep trying to obtain sample and shower patient. Patient kept to herself and stayed isolated in her room for much of the shift. S/I, H/I:[denies] A/VH: [denies] Sleep:[good] ADL's:[able to shower independently and dress, bu tmay need assistance to get herself completely clean.] Group attendance:[No] Were meds taken:[yes] Any med S/E[no] Mental Status Exam Appearance:[disheveled, rash on skin] Eye contact:[poor] Behavior:[calm, appropriate, evasive, ] Speech:[clear, short answers] Mood:[euthymic] Affect:[restricted] Thought process:[disorganized] Thought Content:[depression] Cognition:[Good] Insight:[POOR] Judgment:[POOR] Interventions PRN's used:[no] Therapeutic interventions:[Q15 minute checks for safety, active listening, medication education, milieu participation, one to one assessment] Restraints/seclusion/emergency medication:[No] Justification of Continued Inpatient Treatment:[Patient is LPS conserved for GD and will need medication stabilization and placement]
[2018-10-24 13:41] LABS: CLARITY,URINE SLIGHTLY CLOUDY (Clear); COLOR,URINE STRAW (Yellow); GLUCOSE, URINE NEGATIVE (Neg); KETONES,URINE NEGATIVE (Neg); LEUKOCYTE ESTERASE ,URINE NEGATIVE (Neg); NITRITES, URINE NEGATIVE (Neg); OCCULT BLOOD,URINE NEGATIVE (Neg); PROTEIN,URINE NEGATIVE (Neg); UROBILINOGEN,URINE 0.2 E.U/dL (0.2-1.0)
[2018-10-24 13:44] LABS: UA COLLECTION TYPE CLN CATCH MIDSTREAM
[2018-10-24 13:53] LABS: SQUAMOUS EPITHELIAL CELL,UR MANY /LPF (FEW)
[2018-10-24 13:54] LABS: MUCUS STRANDS NONE SEEN /LPF (Neg)
[2018-10-24 13:55] LABS: BACTERIA,URINE FEW /HPF (Neg); RBC,URINE NONE SEEN /HPF (0-2); WBC,URINE 0-4 /HPF (0-4)
[2018-10-24 19:57] VITALS: BP 106/74
--- NOTE | 2018-10-25 00:13 | NUR ---
RN PROGRESS NOTE: Chief Complaint: Grave disability Legal hold:5150 Client on involuntary status for GD. Report received from nurse Arun with use of SBAR Why are they here: The patient is LPS conserved and was living at board and care where she stopped bathing. She was showing increased agitation toward staff and smelled of body odor and urine, so she was placed on 5150. Diagnosis/presenting symptoms:Chronic depression, agitation, psychosis, disorganized thinking. Assessment What has happened this shift: Received patient in bed. She refused to talk to me. She was compliant with HS meds, then she got up and went to the Rec room and watched tv. The patient does not acknowledge peers or staff. The patient still smells like urine. She was watching tv until midnight then went to bed. S/I, H/I: Denies A/VH: Denies Sleep: Good. ADL's:Independent with prompting. Group attendance: No groups today. Were meds taken: Yes Any med S/E: None noted. Mental Status Exam Appearance: Disheveled overweight woman wearing leopard print pants and sweatshirt. Eye contact: Poor, looks down. Behavior: Quiet, sits by herself. Speech: Poverty, quiet, low volume. Mood: depressed. Affect: Flat Thought process: Linear. Thought Content: Poverty of thought.. Cognition: A/O. Insight: Poor. Judgment: Poor. Interventions PRN's used: None Therapeutic interventions: 1:1, provided safe environment, medication education, q15 minute safety checks. Restraints/seclusion/emergency medication: None Justification of Continued Inpatient Treatment: The patient is GD and extremely depressed. She still needs stabilization and placement.
[2018-10-25] MEDS: nicotine 21mg patch - 24 hr TD SCH (07:41)
[2018-10-25] MEDS: loratadine 10mg tablet PO SCH (07:42)
[2018-10-25] MEDS: venlafaxine XR 75mg capsule (Q24H) PO SCH (07:42)
[2018-10-25] MEDS: naproxen 500mg tablet PO PRN (07:42)
[2018-10-25] MEDS: topiramate 100mg tablet PO SCH ×2 (07:42→21:33)
[2018-10-25] MEDS: carvedilol 6.25mg tablet PO SCH ×2 (07:42→21:33)
[2018-10-25] MEDS: potassium chloride 10mEq ER tablet PO SCH (07:42)
[2018-10-25] MEDS: atorvastatin 10mg tablet PO SCH (07:42)
[2018-10-25] MEDS: losartan 50mg tablet PO SCH (07:42)
[2018-10-25] MEDS: amLODIPine 5mg tablet PO SCH (07:42)
[2018-10-25] MEDS: clotrimazole topical cream 15gm tube TP SCH ×2 (07:49→20:00)
[2018-10-25 08:00] VITALS: BP 156/88
--- NOTE | 2018-10-25 12:06 | NUR ---
RN Progress note: Chief Complaint GD, LPS conserved, Legal hold:[LPS] Client on involuntary status for GD LPs conserved Report received from nurse Chepe with use of SBAR Why are they here:[Patient is LPS conserved and can no longer stay at her current board and care due to noncompliant with care]. Diagnosis/presenting symptoms:[Depressed, isolating, anhedonia, declining to do ADLs] Assessment What has happened this shift: Patient was up for breakfast. She declined groups. She showered after much prompting. This nurse performed a skin check after the shower and patient appeared much upholstery cleaner than the previous day. Her rash under the breasts and groin area was much improved. Patient changed clothes with the exception of her bra. Patient states she only owns one bra. May need to ask guardian to bring her more bras to improve hygiene and rash. She isolated in her room much of the day with the exception of meals. Her speech is impoverished. S/I, H/I:[denies] A/VH: [denies] Sleep:[good] ADL's:[able to shower independently and dress, but may need assistance to get herself completely clean.] Group attendance:[No] Were meds taken:[yes] Any med S/E[no] Mental Status Exam Appearance:[disheveled, rash on skin] Eye contact:[poor] Behavior:[calm, appropriate, isolative] Speech:[clear, short answers, impoverished] Mood:[anhedonia] Affect:[restricted] Thought process:[disorganized] Thought Content:[depression] Cognition:[Good] Insight:[POOR] Judgment:[POOR] Interventions PRN's used:[no] Therapeutic interventions:[Q15 minute checks for safety, active listening, medication education, milieu participation, one to one assessment] Restraints/seclusion/emergency medication:[No] Justification of Continued Inpatient Treatment:[Patient is LPS conserved for GD and will need medication stabilization and placement]
[2018-10-25 19:58] VITALS: BP 95/68
--- NOTE | 2018-10-26 03:59 | NUR ---
RN PROGRESS NOTE: Chief Complaint: Grave disability LPS conservatorship Legal hold:5150 Client on involuntary status for GD. Report received from nurse Handsel with use of SBAR Why are they here: The patient is LPS conserved and was living at board and care where she stopped bathing. She was showing increased agitation toward staff and smelled of body odor and urine, so she was placed on 5150. Diagnosis/presenting symptoms:Chronic depression, agitation, psychosis, disorganized thinking. Assessment What has happened this shift: Pt in bed all shift. Almost non verbal minimal answers. Cooperative with all care. Skin care to panus, area cleansed Clotrimazole applied per order. S/I, H/I: Denies A/VH: Denies Sleep: Good. ADL's:Independent with prompting. Group attendance: No groups today. Were meds taken: Yes Any med S/E: None noted. Mental Status Exam Appearance: Disheveled overweight woman wearing leopard print pants and sweatshirt. Eye contact: Poor, looks down. Behavior: Quiet, sits by herself. Speech: Poverty, quiet, low volume. Mood: depressed. Affect: Flat Thought process: Linear. Thought Content: Poverty of thought.. Cognition: A/O. Insight: Poor. Judgment: Poor. Interventions PRN's used: None Therapeutic interventions: 1:1, provided safe environment, medication education, q15 minute safety checks. Restraints/seclusion/emergency medication: None Justification of Continued Inpatient Treatment: The patient is GD and extremely depressed. She still needs stabilization and placement.
[2018-10-26 07:31] VITALS: BP 115/75
[2018-10-26] MEDS: nicotine 21mg patch - 24 hr TD SCH (07:33)
[2018-10-26] MEDS: venlafaxine XR 75mg capsule (Q24H) PO SCH (07:34)
[2018-10-26] MEDS: loratadine 10mg tablet PO SCH (07:34)
[2018-10-26] MEDS: carvedilol 6.25mg tablet PO SCH ×2 (07:34→20:23)
[2018-10-26] MEDS: losartan 50mg tablet PO SCH (07:34)
[2018-10-26] MEDS: amLODIPine 5mg tablet PO SCH (07:34)
[2018-10-26] MEDS: topiramate 100mg tablet PO SCH ×2 (07:34→20:23)
[2018-10-26] MEDS: potassium chloride 10mEq ER tablet PO SCH (07:34)
[2018-10-26] MEDS: atorvastatin 10mg tablet PO SCH (07:34)
[2018-10-26] MEDS: clotrimazole topical cream 15gm tube TP SCH ×2 (09:10→20:00)
--- NOTE | 2018-10-26 15:59 | NUR ---
Nursing Progress Note: Chief Complaint: Pt depressed and refused to shower at her board and nursing home. Legal hold: [facility] conservatorship Client status is GD, [facility] conservatorship Report received from BANDAR Hughes with use of SBAR. Why are they here: Severe depression leading to decompensation in ADL performance. Pt refused to shower at her board and nursing home, pt smelled of urine, and [employer] gave her 30-day notice. She is unable formulate a plan for food, clothing, and usp. Diagnosis/presenting symptoms: Major depressive disorder, Schizophrenia. Symptoms include depression, anhedonia, isolation, refusing to shower, impaired skin integrity. Assessment What has happened this shift: Pt was sleeping at change of shift. She was cooperative with medication administration. During assessment, pt reported feeling depressed. She denied SI, and A/VH. She isolated to her room for much of the day, but came out briefly for meals. She did not attend group. She was interested in reading and additional books were provided for her. Her hair was disheveled and she has white flakes covering her top. Wound care was provided for the area under her breasts. The area was cleansed, prescribed ointment was applied, and Interdry was placed to help keep the area dry. Bilaterally, the area under breasts was reddened. S/I, H/I: denies A/VH: denies Sleep: napped ADL's: with prompting Group attendance: no Were meds taken: yes Any med S/E: none noted Mental Status Exam Appearance: disheveled Eye contact: indirect Behavior: isolates, cooperative with patient care Speech: soft, minimal speech Mood: depressed Affect: bland Thought process: linear and connected Thought Content: content logical Cognition: appropriate Insight: poor Judgment: poor Interventions PRN's used: None Therapeutic interventions: Established therapeutic relationship, active listening, offered 1:1 support allowing pt to express feelings and thoughts, educated and administered medications as ordered while monitoring for side effects, maintained Q15 min safety checks, Restraints/seclusion/emergency medication: None Justification of Continued Inpatient Treatment: Pt has severe depression inhibiting her ability to perform basic activities of daily living. She is unable to verbalize a plan for food, clothing, and usp. She needs medication management and stabilization.
[2018-10-26 19:50] VITALS: BP 114/81
--- NOTE | 2018-10-27 02:31 | NUR ---
RN PROGRESS NOTE: Chief Complaint: Grave disability Legal hold: involuntary Client on involuntary status for GD. Report received from nurse Monsalve with use of SBAR Why are they here: The patient is LPS conserved and was living at board and care where she stopped bathing. She was showing increased agitation toward staff and smelled of body odor and urine. Diagnosis/presenting symptoms:Chronic depression, Assessment What has happened this shift: Pt in group room at start of shift. Not interacting with other pts and staff. Later ambulating in grewal, attempt to engage in conversation with limited success. Pt more verbal than previous shift, affect slightly less flat. Saying yes or no when asked questions, said Thank You when provided with some books to read. Area Under breasts cleaned an Clotrimazole applied. Some improvement less red. Cooperative with care, took all meds, declined to shower. S/I, H/I: Denies A/VH: Denies Sleep: Sleeping at this time ADL's:Independent with prompting. Group attendance: No groups today. Were meds taken: Yes Any med S/E: None noted. Mental Status Exam Appearance: Disheveled overweight woman in street clothes. Eye contact: Better this shift Behavior: Quiet, sits by herself. Speech: Quiet, low volume. Mood: depressed. Affect: Flat Thought process: Linear. Thought Content: Not known. Cognition: A/O. Insight: Fair. Judgment: Intact. Interventions PRN's used: None Therapeutic interventions: 1:1, provided safe environment, medication education, q15 minute safety checks. Skin care per order. Restraints/seclusion/emergency medication: None Justification of Continued Inpatient Treatment: The patient is GD and extremely depressed. She still needs stabilization and placement.
[2018-10-27 07:54] VITALS: BP 147/95
[2018-10-27] MEDS: topiramate 100mg tablet PO SCH ×2 (08:14→19:14)
[2018-10-27] MEDS: potassium chloride 10mEq ER tablet PO SCH (08:15)
[2018-10-27] MEDS: atorvastatin 10mg tablet PO SCH (08:15)
[2018-10-27] MEDS: amLODIPine 5mg tablet PO SCH (08:15)
[2018-10-27] MEDS: carvedilol 6.25mg tablet PO SCH ×2 (08:16→19:14)
[2018-10-27] MEDS: loratadine 10mg tablet PO SCH (08:16)
[2018-10-27] MEDS: losartan 50mg tablet PO SCH (08:16)
[2018-10-27] MEDS: venlafaxine XR 75mg capsule (Q24H) PO SCH (08:16)
[2018-10-27] MEDS: nicotine 21mg patch - 24 hr TD SCH (08:22)
[2018-10-27] MEDS: clotrimazole topical cream 15gm tube TP SCH ×2 (15:26→19:14)
--- NOTE | 2018-10-27 16:27 | NUR ---
RN PROGRESS NOTE: Chief Complaint: Grave disability Legal hold: involuntary 5250 Report received from nurse Madrid with use of SBAR Why are they here: The patient is LPS conserved, was living at board and care where she stopped bathing. She was showing increased agitation toward staff and smelled of body odor and urine. Diagnosis/presenting symptoms: Major depressive disorder, recurrent Schizophrenia Assessment What has happened this shift: RN met patient in the grewal during shift change. She states that she did not sleep well the night before, she is educated and encouraged to remove her nicotine patch before bed. She is observed resting after eating breakfast. She is not conversational and does not engage with other residents. She is cooperative with treatment, takes medications and allows for scheduled dressing change to rash under breasts, but refuses to shower. She does not have a an extra sports bra, she agrees to take it off tonight and have it washed while she sleeps. Patient is observed walking down the grewal periodically. She states that the only thing she needs is a cigarette. S/I, H/I: none reported A/VH: none reported Sleep: report received that patient only slept 3.5hrs the night prior, rested a bit today ADL's: Independent , refuses shower Group attendance: yes Were meds taken: Yes Any med S/E: None reported, no IMs or tremors observed Mental Status Exam Appearance: clothing and self dirty, unkempt Eye contact: occasional direct Behavior: Quiet, guarded Speech: minimal, soft tone Mood: states she feels better, appears depressed Affect: Flat Thought process: Linear. Thought Content: would like a cigarette Cognition: A/O x4 Insight: Fair Judgment: fair to good, patient refuses to shower. Interventions PRN's used: None Therapeutic interventions: 1:1 communication with RN, education related to hygiene provided, provided safe environment, medication education, q15 minute safety checks. Skin care per order. Restraints/seclusion/emergency medication: None Justification of Continued Inpatient Treatment: Pt is still not at baseline. Pt needs prompting for ADLs and is still not showering today. Pt is not stable enough to return back to [facility].
[2018-10-27 20:00] VITALS: BP 123/67
--- NOTE | 2018-10-27 23:08 | NUR ---
RN PROGRESS NOTE: Chief Complaint: Grave disability Legal hold: involuntary 5250 Report received from Agnieszka PORTILLO. Why are they here: The patient is LPS conserved, was living at board and care where she stopped bathing. She was showing increased agitation toward staff and smelled of body odor and urine. Pt was not caring for herself. Diagnosis/presenting symptoms: Major depressive disorder, recurrent Schizophrenia Assessment What has happened this shift: Pt was in her room at change of shift. 1:1 assessment completed at bedside. Pt denies s/i, denies depression. Pt reports good appetite, and states she ate all of her meals today. Pt was somewhat resistive to removing sports bra this evening stating she fears her rash will become worse w/out the sports bra. The elastic band was heavily soiled. Educated pt on changing clothing and not sleeping w/sports bra in the evening. Applied lotrimin cream and interdry. Pt sat out in the grewal way for a short time this evening before going to sleep. She reports difficulty sleeping the night before. Educated pt on using the call light and asked her to let me know if she is unable to sleep. S/I, H/I: Pt denies A/VH: pt denies Sleep: pt c/o poor sleep last night, pt is currently sleeping ADL's: Independent, pt needs prompts and reminders for hygiene, refuses shower, states she will take a shower "in the morning" Group attendance: no evening groups offered. Were meds taken: Yes Any med S/E: None reported, no IMs or tremors observed Mental Status Exam Appearance: pt was wearing two large sweatshirts and heavily soiled sports bra underneath her sweatshirts. Suggested pt contact her residential and see if someone can bring her more sports bras so she can change them daily. (will pass on in morning report) Eye contact: Direct Behavior: Pt is quiet, spent some time laying in bed and then came out and sat in a chair in the hallway before returning to bed in her room. Speech: Soft, normal rate Mood: "good" Affect: Flat Thought process: Linear. Thought Content: would like a cigarette Cognition: A/O x4 Insight: Fair Judgment: fair Interventions PRN's used: None Therapeutic interventions: 1:1 communication with RN, education related to hygiene provided, observed q15 minutes for safety. Skin care per order. Restraints/seclusion/emergency medication: None Justification of Continued Inpatient Treatment: Pt is still not at baseline. Pt needs prompting for ADLs and is still not showering today.
[2018-10-28] MEDS: losartan 50mg tablet PO SCH (07:57)
[2018-10-28] MEDS: topiramate 100mg tablet PO SCH ×2 (07:57→19:33)
[2018-10-28] MEDS: venlafaxine XR 75mg capsule (Q24H) PO SCH (07:57)
[2018-10-28] MEDS: carvedilol 6.25mg tablet PO SCH ×2 (07:58→19:33)
[2018-10-28] MEDS: amLODIPine 5mg tablet PO SCH (07:58)
[2018-10-28] MEDS: loratadine 10mg tablet PO SCH (07:58)
[2018-10-28] MEDS: atorvastatin 10mg tablet PO SCH (07:58)
[2018-10-28] MEDS: potassium chloride 10mEq ER tablet PO SCH (07:58)
[2018-10-28 08:00] VITALS: BP 101/61
[2018-10-28] MEDS: clotrimazole topical cream 15gm tube TP SCH ×2 (08:00→19:37)
[2018-10-28] MEDS: nicotine 21mg patch - 24 hr TD SCH (09:40)
--- NOTE | 2018-10-28 11:29 | NUR ---
Initial: Pt admitted to [facility] on 5150 for depression and schizophrenia. Per MD notes pt is conserved. Pt given written heart healthy education by RD at previous admission 03/30/18 d/t pt with elevated TG, LDL, and CHOL. Lipid panel WNL at this time. Documented PO intake averaging 75% on regular diet meeting nutrient needs. LBM 10/27. No edema or wounds. Will continue to follow. Recommendations: 1) Continue with regular diet 2) Weekly wt Addendum: 10/28/18 at [address] Amended: Links added.
--- NOTE | 2018-10-28 16:19 | NUR ---
RN PROGRESS NOTE: Chief Complaint: Grave disability Legal hold: LPS Conserved Report received from BANDAR Toscano. Why are they here: The patient is LPS conserved, was living at board and care where she stopped bathing. She was showing increased agitation toward staff and smelled of body odor and urine. Pt was not caring for herself. Diagnosis/presenting symptoms: Major depressive disorder, recurrent Schizophrenia Assessment What has happened this shift: Patient was asleep at change of shift. Got up for breakfast and shortly thereafter took a shower. CARMEN Delcid took patient out on patio for a 1:1 assessment today because she completed her part of agreement and showered. Lotrimin cream was applied to rash under breasts. Patient was cooperative and polite. Depressed mood and flat affect. When asked how her emotions feel today she stated, "depressed." Eating well. VSS. Took long nap in afternoon and did not attend afternoon group. S/I, H/I: Denies A/VH: Denies Sleep: afternoon nap ADL's: Showered today and combed hair, dressed neat. Group attendance: x1 Were meds taken: Yes Any med S/E: None Mental Status Exam Appearance: Clean and appropriate Eye contact: Intermittent Behavior: Cooperative Speech: Soft, normal rate Mood: depressed Affect: Flat Thought process: Linear. Thought Content: depressive Cognition: A/O x4 Insight: Fair Judgment: fair Interventions PRN's used: None Therapeutic interventions: 1:1 communication with RN, reassurance and support observed q15 minutes for safety. Skin care per order. Restraints/seclusion/emergency medication: None Justification of Continued Inpatient Treatment: Depression, unable to care for self. Pt needs prompting for ADLs.
[2018-10-28 20:00] VITALS: BP 104/54
--- NOTE | 2018-10-28 21:57 | NUR ---
RN PROGRESS NOTE: Chief Complaint: Grave disability Legal hold: LPS Conserved Report received from BANDAR Tovar. Why are they here: The patient is LPS conserved, was living [facility] where she stopped bathing. She was showing increased agitation toward staff and smelled of body odor and urine. Pt was not caring for herself. Diagnosis/presenting symptoms: Major depressive disorder, recurrent Schizophrenia Assessment What has happened this shift: Pt was laying in bed napping at change of shift. 1:1 assessment completed at bedside. Pt denies s/i. Pt isolates to her room in the evening but states she has been spending time reading books. Talks to me about her favorite author. Pt states she slept good and appetite is good. Applied lotrimin to pts rash, she has strips of interdry on bedside table but does not want to put them on. She has a clean bra on today and has addtl bras in her clothing but states those are too small. S/I, H/I: Denies A/VH: Denies Sleep: pt was sleeping at change of shift, and states was too tired to attend both groups but reports adequate sleep last night. ADL's: Showered today and combed hair, dressed neat. Group attendance: no evening groups Were meds taken: yes Any med S/E: pt is fatigued otherwise, none noted or observed Mental Status Exam Appearance: adequately groomed and dressed. pt wears layers of shirts/sweatshirts Eye contact: good Behavior: Cooperative Speech: Soft, Mood: withdrawn Affect: Flat Thought process: Linear, guarded Thought Content: pt is talking about her favorite authors Cognition: A/O x4 Insight: Fair Judgment: fair Interventions PRN's used: None Therapeutic interventions: 1:1 assessment, active listening, observed q15 minutes for safety. Applied lotrimin to skin, administered meds as prescribed. Restraints/seclusion/emergency medication: None Justification of Continued Inpatient Treatment: Depression, unable to care for self. Pt needs prompting for ADLs.
[2018-10-29 08:00] VITALS: BP 134/92
[2018-10-29] MEDS: nicotine 21mg patch - 24 hr TD SCH (08:10)
[2018-10-29] MEDS: venlafaxine XR 75mg capsule (Q24H) PO SCH (08:10)
[2018-10-29] MEDS: potassium chloride 10mEq ER tablet PO SCH (08:11)
[2018-10-29] MEDS: amLODIPine 5mg tablet PO SCH (08:11)
[2018-10-29] MEDS: carvedilol 6.25mg tablet PO SCH ×2 (08:11→20:26)
[2018-10-29] MEDS: topiramate 100mg tablet PO SCH ×2 (08:11→20:26)
[2018-10-29] MEDS: loratadine 10mg tablet PO SCH (08:11)
[2018-10-29] MEDS: atorvastatin 10mg tablet PO SCH (08:11)
[2018-10-29] MEDS: losartan 50mg tablet PO SCH (08:11)
[2018-10-29] MEDS: clotrimazole topical cream 15gm tube TP SCH ×2 (08:11→20:00)
--- NOTE | 2018-10-29 16:01 | NUR ---
RN PROGRESS NOTE: Chief Complaint: Grave disability Legal hold: LPS Conserved Report received from BANDAR Toscano. Why are they here: The patient is LPS conserved, was living [facility] where she stopped bathing. She was showing increased agitation toward staff and smelled of body odor and urine. Pt was not caring for herself. Diagnosis/presenting symptoms: Major depressive disorder, recurrent Schizophrenia Assessment What has happened this shift: Patient was asleep at change of shift. Got up for breakfast and listened to music with others after breakfast. Lotrimin cream was applied to rash under breasts. Attempts were made to find bra's that fit patient as the bra's the guardian brought are all "too small for me." Patient was cooperative and polite. Depressed mood and flat affect. Attended morning group and afternoon group. Eating well. VSS. Medication compliant. Took long nap in late afternoon. S/I, H/I: Denies A/VH: Denies Sleep: afternoon nap ADL's: self Group attendance: x2 Were meds taken: Yes Any med S/E: None Mental Status Exam Appearance: Clean and appropriate Eye contact: Intermittent Behavior: Cooperative Speech: Soft, normal rate Mood: depressed Affect: Flat Thought process: Linear. Thought Content: depressive Cognition: A/O x4 Insight: Fair Judgment: fair Interventions PRN's used: None Therapeutic interventions: 1:1 communication with RN, reassurance and support observed q15 minutes for safety. Skin care per order. Restraints/seclusion/emergency medication: None Justification of Continued Inpatient Treatment: Depression, unable to care for self. Pt needs prompting for ADLs.
--- NOTE | 2018-10-29 22:17 | NUR ---
RN PROGRESS NOTE: Chief Complaint: Grave disability Legal hold: LPS Conserved Report received from: (no report same nurse for NOC shift) Why are they here: The patient is LPS conserved, was living [facility] where she stopped bathing. She was showing increased agitation toward staff and smelled of body odor and urine. Pt was not caring for herself. Diagnosis/presenting symptoms: Major depressive disorder, recurrent Schizophrenia Assessment What has happened this shift: The patient ate dinner and then went to her room to read. Multiple attempts were made to find a bra for the patient which she liked and fit her. She has one more she will try tomorrow. She describes her mood as "depressed", her affect is flat. She is cooperative and medication compliant. Denies AH, VH or suicidal thoughts. She received her evening medications and went to sleep. S/I, H/I: Denies A/VH: Denies Sleep: sleeping ADL's: self (may need help at times.) Group no groups held tonight Were meds taken: Yes Any med S/E: None Mental Status Exam Appearance: Slightly disheveled Eye contact: Intermittent Behavior: Cooperative Speech: Soft, slowed Mood: depressed Affect: Flat Thought process: Linear. Thought Content: depressive Cognition: A/O x4 Insight: Fair Judgment: fair Interventions PRN's used: None Therapeutic interventions: 1:1 communication with RN, reassurance and support observed q15 minutes for safety. Restraints/seclusion/emergency medication: None Justification of Continued Inpatient Treatment: Depression, unable to care for self. Pt needs prompting for ADLs
[2018-10-30 07:00] VITALS: BP 153/66
[2018-10-30] MEDS: atorvastatin 10mg tablet PO SCH (07:37)
[2018-10-30] MEDS: potassium chloride 10mEq ER tablet PO SCH (07:37)
[2018-10-30] MEDS: venlafaxine XR 75mg capsule (Q24H) PO SCH (07:38)
[2018-10-30] MEDS: topiramate 100mg tablet PO SCH ×2 (07:38→20:45)
[2018-10-30] MEDS: carvedilol 6.25mg tablet PO SCH ×2 (07:38→20:45)
[2018-10-30] MEDS: amLODIPine 5mg tablet PO SCH (07:38)
[2018-10-30] MEDS: losartan 50mg tablet PO SCH (07:38)
[2018-10-30] MEDS: loratadine 10mg tablet PO SCH (07:38)
[2018-10-30] MEDS: clotrimazole topical cream 15gm tube TP SCH ×2 (07:39→20:45)
[2018-10-30] MEDS: nicotine 21mg patch - 24 hr TD SCH (07:39)
--- NOTE | 2018-10-30 14:17 | NUR ---
RN PROGRESS NOTE: Chief Complaint: Grave disability Legal hold: LPS Conserved Report received from BANDAR Vital. Why are they here: The patient is LPS conserved, was living [facility] where she stopped bathing. She was showing increased agitation toward staff and smelled of body odor and urine. Pt was not caring for herself. Diagnosis/presenting symptoms: Major depressive disorder, schizophrenia Assessment: Pt. isolating to room all day, up for meals. Patient when asked how she is doing, she states "fine". Attempted to elaborate during 1:1, but patient was not willing to talk. S/I, H/I: Denies A/VH: Denies Sleep: Nap during afternoon ADL's: Independent, needs prompting. Group attendance: No groups. Were meds taken: Yes Any med S/E: None Mental Status Exam Appearance: Clean and appropriate Eye contact: None. Behavior: Cooperative Speech: Soft, normal rate Mood: depressed Affect: Flat Thought process: Linear. Thought Content: depressive Cognition: A/O x4 Insight: Fair Judgment: fair Interventions PRN's used: None Therapeutic interventions: 1:1 to assess for severity of symptoms. q15" safety checks. Restraints/seclusion/emergency medication: None Justification of Continued Inpatient Treatment: Patient continues to appear depressed and isolative. Needs further stabilization before discharged back to [facility].
--- NOTE | 2018-10-30 17:12 | NUR ---
Pt. refused weekly weight.
[2018-10-30 19:55] VITALS: BP 118/68
--- NOTE | 2018-10-31 03:10 | NUR ---
RN PROGRESS NOTE: Chief Complaint: Grave disability Legal hold: involuntary LPS conserved Client on involuntary status for GD. Report received from nurse Zarate with use of SBAR Why are they here: The patient is LPS conserved and was living at [facility] where she stopped bathing. She was showing increased agitation toward staff and smelled of body odor and urine. Diagnosis/presenting symptoms:Chronic depression, Unable to care for self Assessment What has happened this shift: Pt in her room in bed at start of shift. Very little response to attempt to engage pt in conversation. One word answers to questions. Pt refused a shower but agreed to take one in am. Pt declined to come to group room or ambulate in halls. Education on detrimental effects of immobility on respiratory system. No Response from pt. But, about 15 minutes later pt independently got up and ambulated in grewal and sat up in a chair for about 10 minutes. Area Under breasts cleaned an Clotrimazole applied. Some improvement less red. Cooperative with care, took all meds, declined to shower. S/I, H/I: Denies A/VH: Denies Sleep: Sleeping at this time ADL's:Independent with prompting. Group attendance: No groups today. Were meds taken: Yes Any med S/E: None noted. Mental Status Exam Appearance: Disheveled overweight woman in street clothes. Eye contact: Poor Behavior: Quiet, sits by herself. Speech: Quiet, low volume. Mood: depressed. Affect: Flat Thought process: Linear. Thought Content: Not known. Cognition: A/O. Insight: Not known. Judgment: Not known. Interventions PRN's used: None Therapeutic interventions: 1:1, provided safe environment, medication education, q15 minute safety checks. Skin care per order. Restraints/seclusion/emergency medication: None Justification of Continued Inpatient Treatment: The patient is GD and extremely depressed. She still needs stabilization and placement.
[2018-10-31 07:18] VITALS: BP 123/85
[2018-10-31] MEDS: carvedilol 6.25mg tablet PO SCH ×2 (08:47→20:31)
[2018-10-31] MEDS: venlafaxine XR 75mg capsule (Q24H) PO SCH (08:47)
[2018-10-31] MEDS: atorvastatin 10mg tablet PO SCH (08:47)
[2018-10-31] MEDS: loratadine 10mg tablet PO SCH (08:47)
[2018-10-31] MEDS: nicotine 21mg patch - 24 hr TD SCH (08:48)
[2018-10-31] MEDS: potassium chloride 10mEq ER tablet PO SCH (08:48)
[2018-10-31] MEDS: amLODIPine 5mg tablet PO SCH (08:48)
[2018-10-31] MEDS: losartan 50mg tablet PO SCH (08:48)
[2018-10-31] MEDS: clotrimazole topical cream 15gm tube TP SCH ×2 (08:49→20:32)
[2018-10-31] MEDS: topiramate 100mg tablet PO SCH ×2 (08:49→20:31)
--- NOTE | 2018-10-31 15:25 | NUR ---
RN PROGRESS NOTE: Chief Complaint: Grave disability Legal hold: LPS Conserved Report received from BANDAR Hughes, using SBAR. Why are they here: The patient is LPS conserved, was living at [facility] where she stopped bathing. She was showing increased agitation toward staff and smelled of body odor and urine. Pt was not caring for herself. Diagnosis/presenting symptoms: Major depressive disorder, schizophrenia Assessment: Patient showered this morning and attended all groups. Patient lays in bed between meals and groups and sleeps. S/I, H/I: Denies A/VH: Denies Sleep: Naps during day. ADL's: Independent, needs prompting. Group attendance: Attends all groups. Were meds taken: Yes Any med S/E: None Mental Status Exam Appearance: Clean and appropriate Eye contact: Minimal. Behavior: Cooperative Speech: Soft, normal rate Mood: depressed Affect: Flat Thought process: Linear. Thought Content: depressive Cognition: A/O x4 Insight: Fair Judgment: fair Interventions PRN's used: None Therapeutic interventions: 1:1 to assess for severity of symptoms. q15" safety checks. Restraints/seclusion/emergency medication: None Justification of Continued Inpatient Treatment: Patient continues to appear depressed and isolative. Needs further stabilization before discharged.
--- NOTE | 2018-11-01 01:27 | NUR ---
RN PROGRESS NOTE: Chief Complaint: Grave disability Legal hold: LPS Conserved Report received from BANDAR Zarate, using SBAR. Why are they here: The patient is LPS conserved, was living at [facility] where she stopped bathing. She was showing increased agitation toward staff and smelled of body odor and urine. Pt was not caring for herself. Diagnosis/presenting symptoms: Major depressive disorder, schizophrenia Assessment: Pt laying in bed at start of shift. One word responses to questions. Poor eye contact. First answer when asked about mood was "good". Observation that she appeared depressed pt admitted that she was. Pt encouraged to get up out of bed for snack she declined. She did get up later and sit in grewal. Pt cooperative with care takes all medications. S/I, H/I: Denies A/VH: Denies Sleep: sleeping at this time ADL's: Independent, needs prompting. Group attendance: Attends all groups. Were meds taken: Yes Any med S/E: None Mental Status Exam Appearance: Clean and appropriate Eye contact: Minimal. Behavior: Cooperative Speech: Soft, normal rate Mood: depressed Affect: Flat Thought process: Linear. Thought Content: depressive Cognition: A/O x4 Insight: Fair Judgment: fair Interventions PRN's used: None Therapeutic interventions: 1:1 to assess for severity of symptoms. Encourage pt to get out of bed. q15" safety checks. Restraints/seclusion/emergency medication: None Justification of Continued Inpatient Treatment: Patient continues to appear depressed and isolative. Needs further stabilization before discharged.
[2018-11-01 07:00] VITALS: BP 150/80
[2018-11-01] MEDS: amLODIPine 5mg tablet PO SCH (08:14)
[2018-11-01] MEDS: potassium chloride 10mEq ER tablet PO SCH (08:15)
[2018-11-01] MEDS: atorvastatin 10mg tablet PO SCH (08:15)
[2018-11-01] MEDS: venlafaxine XR 75mg capsule (Q24H) PO SCH (08:15)
[2018-11-01] MEDS: loratadine 10mg tablet PO SCH (08:15)
[2018-11-01] MEDS: losartan 50mg tablet PO SCH (08:15)
[2018-11-01] MEDS: topiramate 100mg tablet PO SCH ×2 (08:15→20:36)
[2018-11-01] MEDS: carvedilol 6.25mg tablet PO SCH ×2 (08:15→20:35)
[2018-11-01] MEDS: nicotine 21mg patch - 24 hr TD SCH (08:15)
[2018-11-01] MEDS: clotrimazole topical cream 15gm tube TP SCH (08:16)
[2018-11-01] MEDS: nystatin/triamcinolone cream 15gm TP SCH ×2 (10:35→20:00)
[2018-11-01] MEDS: triamcinolone acet 0.1% cream 15gm TP SCH ×2 (11:23→20:44)
[2018-11-01] MEDS: NYSTATIN CREAM - 30GM TUBE TP SCH ×2 (11:23→20:44)
--- NOTE | 2018-11-01 14:19 | NUR ---
RN PROGRESS NOTE: Chief Complaint: Grave disability Legal hold: LPS Conserved Report received from Ellen PORTILLO, using SBAR. Why are they here: The patient is LPS conserved, was living at [facility] where she stopped bathing. She was showing increased agitation toward staff and smelled of body odor and urine. Pt was not caring for herself. Diagnosis/presenting symptoms: Major depressive disorder, schizophrenia Assessment: Patient laying in bed for most of the day, attends meals and group. Refusing to shower, attempted to apply ointments under bilateral breasts but she will not comply with ADL's. Patient exhibiting signs of anhedonia. No support system, no family. Educated patient on importance of hygiene and skin infections. S/I, H/I: Denies A/VH: Denies Sleep: Sleeping on and off throughout the day, which is her pattern. ADL's: Refusing. Group attendance: Attends all groups. Were meds taken: Yes Any med S/E: None Mental Status Exam Appearance: Disheveled, malodorous. Eye contact: None. Behavior: Resistant to care. Lying in bed, refusing ADL's. Speech: Soft, normal rate Mood: depressed Affect: Flat Thought process: Linear. Thought Content: depressive Cognition: A/O x4 Insight: Fair Judgment: fair Interventions PRN's used: None Therapeutic interventions: 1:1 to assess for severity of symptoms. Encourage pt to get out of bed and to shower. q15" safety checks. Restraints/seclusion/emergency medication: None Justification of Continued Inpatient Treatment: Patient continues to appear depressed and isolative. Needs further stabilization before discharged.
[2018-11-01 20:00] VITALS: BP 122/64
--- NOTE | 2018-11-02 | NUR ---
RN PROGRESS NOTE: Chief Complaint: Grave disability Legal hold: LPS Conserved Report received from BANDAR Zarate, using SBAR. Why are they here: The patient is LPS conserved, was living at [facility] where she stopped bathing. She was showing increased agitation toward staff and smelled of body odor and urine. Pt was not caring for herself. Diagnosis/presenting symptoms: Major depressive disorder, schizophrenia Assessment: No change in pt demeanor from last NOC shift. One word answers to questions. Lying in bed at start of shift. Declined shower. "I will shower tomorrow." Isolated in room all shift. Educated on new antidepressant to start in am. Pt admits to be depressed does not describe her symptoms. Denies SI or hallucinations. S/I, H/I: Denies A/VH: Denies Sleep: sleeping at this time ADL's: Independent, needs prompting. Group attendance: Attends all groups. Were meds taken: Yes Any med S/E: None Mental Status Exam Appearance: Clean and appropriate Eye contact: Minimal. Behavior: Cooperative Speech: Soft, normal rate Mood: depressed Affect: Flat Thought process: Linear. Thought Content: depressive Cognition: A/O x4 Insight: Fair Judgment: fair Interventions PRN's used: None Therapeutic interventions: 1:1 to assess for severity of symptoms. Encourage pt to get out of bed. q15" safety checks. Restraints/seclusion/emergency medication: None Justification of Continued Inpatient Treatment: Patient continues to appear depressed and isolative. Needs further stabilization before discharged.
[2018-11-02 08:00] VITALS: BP 134/80
[2018-11-02] MEDS: nystatin/triamcinolone cream 15gm TP SCH ×2 (08:00→20:24)
[2018-11-02] MEDS: NYSTATIN CREAM - 30GM TUBE TP SCH (08:00)
[2018-11-02] MEDS: triamcinolone acet 0.1% cream 15gm TP SCH (08:00)
[2018-11-02] MEDS: potassium chloride 10mEq ER tablet PO SCH (08:18)
[2018-11-02] MEDS: losartan 50mg tablet PO SCH (08:18)
[2018-11-02] MEDS: venlafaxine XR 75mg capsule (Q24H) PO SCH (08:18)
[2018-11-02] MEDS: loratadine 10mg tablet PO SCH (08:18)
[2018-11-02] MEDS: carvedilol 6.25mg tablet PO SCH ×2 (08:18→20:24)
[2018-11-02] MEDS: buPROPion 75mg tablet PO SCH (08:19)
[2018-11-02] MEDS: topiramate 100mg tablet PO SCH ×2 (08:19→20:24)
[2018-11-02] MEDS: amLODIPine 5mg tablet PO SCH (08:19)
[2018-11-02] MEDS: atorvastatin 10mg tablet PO SCH (08:19)
[2018-11-02] MEDS: nicotine 21mg patch - 24 hr TD SCH (08:20)
--- NOTE | 2018-11-02 17:14 | NUR ---
NURSING PROGRESS NOTE: Chief Complaint: Grave disability Legal hold: LPS Conserved Report received from BANDAR Hughes, using SBAR. Why are they here: The patient is LPS conserved, was living at [facility] where she stopped bathing. She was showing increased agitation toward staff and smelled of body odor and urine. Pt was not caring for herself. Diagnosis/presenting symptoms: Major depressive disorder, schizophrenia Assessment: What happened this shift: The patient was asleep at change of shift. She was up to breakfast and took all po medications. She had told NOC shift she would take a shower today, when asked multiple times throughout the day , patient refused a shower, and refused cream medications for rash under breasts, not allowing nurse to apply medications. She has a depressed mood and flat affect. Sat in chair in hallway for a few hours today. S/I, H/I: Denies A/VH: Denies Sleep: napped ADL's: Independent, needs prompting. Group attendance: x1 Were meds taken: Yes Any med S/E: None Mental Status Exam Appearance: disheveled and needing shower Eye contact: None Behavior: uncooperative Speech: Soft, one word answers Mood: depressed Affect: Flat Thought process: undetermined Thought Content: unknown, will not engage Cognition: A/O x4 Insight: poor Judgment: poor Interventions PRN's used: None Therapeutic interventions: 1:1 to assess for severity of symptoms. Encourage pt to shower multiple times. q15" safety checks. reassurance Restraints/seclusion/emergency medication: None Justification of Continued Inpatient Treatment: Patient continues to appear depressed and isolative. Needs further stabilization before discharged.
[2018-11-02 19:53] VITALS: BP 106/71
--- NOTE | 2018-11-02 20:59 | NUR ---
NURSING PROGRESS NOTE: Chief Complaint: Grave disability Legal hold: JOANIE Conserved Report received from (no report given same nurse) Why are they here: The patient is LPS conserved, was living at [facility] where she stopped bathing. She was showing increased agitation toward staff and smelled of body odor and urine. Pt was not caring for herself. Diagnosis/presenting symptoms: Major depressive disorder, schizophrenia Assessment: What happened this shift: The patient was lying on bed at change of shift and did get up to eat dinner with others. Depressed mood and flat affect, one word answers. Took evening medications and allowed nurse to apply cream to rash. Agrees to take shower in morning. Sleeping. S/I, H/I: Denies A/VH: Denies Sleep: sleeping ADL's: Independent, needs prompting. Group attendance: None this shift Were meds taken: Yes Any med S/E: None Mental Status Exam Appearance: disheveled and malodorous and needing shower Eye contact: None Behavior: cooperative, flat Speech: Soft, one word answers Mood: depressed Affect: Flat Thought process: undetermined Thought Content: unknown, will not engage Cognition: A/O x4 Insight: poor Judgment: poor Interventions PRN's used: None Therapeutic interventions: 1:1 to assess for severity of symptoms. Encourage pt to shower multiple times. q15" safety checks. reassurance Restraints/seclusion/emergency medication: None Justification of Continued Inpatient Treatment: Patient continues to appear depressed and isolative. Needs further stabilization before discharged. Addendum: 11/03/18 at 0515 by Sandi Pablo RN Report received from La PORTILLO. Patient got up from bed a couple times throughout this shift and would sit in a chair in the hallway, then return to bed. When asked questions and trying to initiate conversation she would respond with 1 worded answers. She presented with a flat affect, and would keep to herself during these times.
[2018-11-03] MEDS: nicotine 21mg patch - 24 hr TD SCH (07:28)
[2018-11-03] MEDS: atorvastatin 10mg tablet PO SCH (07:29)
[2018-11-03] MEDS: topiramate 100mg tablet PO SCH ×2 (07:29→20:46)
[2018-11-03] MEDS: venlafaxine XR 75mg capsule (Q24H) PO SCH (07:29)
[2018-11-03] MEDS: potassium chloride 10mEq ER tablet PO SCH (07:29)
[2018-11-03] MEDS: losartan 50mg tablet PO SCH (07:29)
[2018-11-03] MEDS: buPROPion 75mg tablet PO SCH (07:30)
[2018-11-03] MEDS: loratadine 10mg tablet PO SCH (07:30)
[2018-11-03] MEDS: amLODIPine 5mg tablet PO SCH (07:30)
[2018-11-03] MEDS: carvedilol 6.25mg tablet PO SCH ×2 (07:30→20:46)
[2018-11-03 08:01] VITALS: BP 139/79
[2018-11-03] MEDS: nystatin/triamcinolone cream 15gm TP SCH ×2 (08:23→20:00)
--- NOTE | 2018-11-03 14:15 | NUR ---
NURSING PROGRESS NOTE: Chief Complaint: Grave disability Legal hold: LPS Conserved Report received from BANDAR Junior, using SBAR. Why are they here: The patient is LPS conserved, was living at [facility] where she stopped bathing. She was showing increased agitation toward staff and smelled of body odor and urine. Pt was not caring for herself. Diagnosis/presenting symptoms: Major depressive disorder, schizophrenia Assessment: What happened this shift: The patient was awake and sitting in a chair at change of shift. She was up to breakfast and took all po medications. She agreed on NOC shift she would take a shower today. When asked early this morning she agreed to take shower after first group but before lunch. When the time came she was refusing again and she was told she needed to shower right then because this was her allotted time and others needed the shower later. She did agree and went in the shower. She did not wash her hair or get head wet. She seemed to wash the fromt of her body and under the breasts as her rash area was cleansed. Cream was applied as ordered to rash. One word answers today. States she is depressed and denies AH's. She has a depressed mood and flat affect. Did not attend afternoon group. Will not engage in conversation with nurse. S/I, H/I: Denies A/VH: Denies Sleep: napped ADL's: Independent, needs prompting. Group attendance: x1 Were meds taken: Yes Any med S/E: None Mental Status Exam Appearance: disheveled/ showered Eye contact: None Behavior: resistive Speech: Soft, one word answers Mood: depressed Affect: Flat Thought process: undetermined Thought Content: unknown, will not engage Cognition: A/O x4 Insight: poor Judgment: poor Interventions PRN's used: None Therapeutic interventions: 1:1 to assess for severity of symptoms. Encourage pt to shower multiple times. q15" safety checks. reassurance Restraints/seclusion/emergency medication: None Justification of Continued Inpatient Treatment: Patient continues to appear depressed and isolative. Needs further stabilization before discharged.
[2018-11-03 19:00] VITALS: BP 132/86
--- NOTE | 2018-11-03 22:05 | NUR ---
Nicotine Patch Patch removed from left shoulder at 2200.
--- NOTE | 2018-11-04 00:29 | NUR ---
NURSING PROGRESS NOTE: Chief Complaint: Grave disability Legal hold: LPS Conserved Report received from BANDAR Juniro, using SBAR. Why are they here: The patient is LPS conserved, was living at [facility] where she stopped bathing. She was showing increased agitation toward staff and smelled of body odor and urine. Pt was not caring for herself. Diagnosis/presenting symptoms: Major depressive disorder, schizophrenia Assessment: What happened this shift: Patient was sitting in grewal sitting in a chair at change of shift, she presented with a very flat affect and made minimal eye contact and would only give one word responses. She would get up and down from this chair, walk the grewal to her room and then back to the chair periodically throughout the shift. Throughout the shift it patient was observed sitting in the chair and appeared to be talking to her self. In the beginning of the shift she refused 1:1 assessment. Later she agreed to a brief assessment and to take her evening medications but refused to have cream applied to rash under her breast. Nicotine patch was removed from left shoulder, shortly after removal of the nicotine patch patient presented herself to her room and turned to bed. She is still currently sleeping. S/I, H/I: Denies A/VH: Denies Sleep: Napped ADL's: Independent, Needs prompting. Group attendance: None Were meds taken: Yes Any med S/E: None Mental Status Exam Appearance: Disheveled Eye contact: Minimal Behavior: Resistive Speech: Soft, one word answers Mood: Depressed Affect: Flat Thought process: Undetermined Thought Content: Unknown, will not engagein conversation or assessment beside one worded answers. Cognition: A/O x4 Insight: Poor Judgment: Poor Interventions PRN's used: None Therapeutic interventions: 1:1 to assessment at bedside. Encourage patient to engage in conversation and express her feelings without effect. Provide supportive environment. Q15 minute safety checks. Restraints/seclusion/emergency medication: None Justification of Continued Inpatient Treatment: Patient continues to appear depressed and isolative. Needs further stabilization before discharged. Addendum: 11/04/18 at 0049 by Sandi Pablo RN Error: Report Received from La PORTILLO
[2018-11-04 07:43] VITALS: BP 151/89
[2018-11-04] MEDS: nicotine 21mg patch - 24 hr TD SCH (07:48)
[2018-11-04] MEDS: amLODIPine 5mg tablet PO SCH (07:48)
[2018-11-04] MEDS: venlafaxine XR 75mg capsule (Q24H) PO SCH (07:48)
[2018-11-04] MEDS: topiramate 100mg tablet PO SCH ×2 (07:49→20:29)
[2018-11-04] MEDS: losartan 50mg tablet PO SCH (07:49)
[2018-11-04] MEDS: potassium chloride 10mEq ER tablet PO SCH (07:49)
[2018-11-04] MEDS: buPROPion 75mg tablet PO SCH ×2 (07:49→12:43)
[2018-11-04] MEDS: carvedilol 6.25mg tablet PO SCH ×2 (07:49→20:29)
[2018-11-04] MEDS: loratadine 10mg tablet PO SCH (07:49)
[2018-11-04] MEDS: atorvastatin 10mg tablet PO SCH (07:49)
[2018-11-04] MEDS: nystatin/triamcinolone cream 15gm TP SCH ×2 (08:00→20:29)
--- NOTE | 2018-11-04 11:46 | NUR ---
Reassessment: Documented PO intake fluctuates 100% with refusals. D/w RN about the addition of ONS, RN states pt is eating well and refused dinner last PM d/t eating sandwich prior to mealtime. Current wt is stable with admit wt. LBM 11/02, not on routine bowel care. Will continue to follow. Recommendations: 1) Continue with regular diet 2) Monitor need for ONS 3) Monitor need for additional bowel care 4) Weekly wt Addendum: 11/04/18 at [address] Amended: Links added.
--- NOTE | 2018-11-04 15:50 | NUR ---
NURSING PROGRESS NOTE: Chief Complaint: Grave disability Legal hold: LPS Conserved Report received from BANDAR Junior, using SBAR. Why are they here: The patient is LPS conserved, was living at [facility] where she stopped bathing. She was showing increased agitation toward staff and smelled of body odor and urine. Pt was not caring for herself. Diagnosis/presenting symptoms: Major depressive disorder, schizophrenia Assessment: What happened this shift: Awake at change of shift, sitting in group room, she presented with a very flat affect and made minimal eye contact and would only give one word responses. She would get up and down from the chair, walk the grewal to her room and then back to the chair. She refused to shower today. Medication compliant. A showering agreement was printed up and presented to the patient. (To bathe, brush teeth, wash hair and wear clean clothes) she was resistive but finally agreed verbally to shower on Sat. Tues. and Thurs. , she will pick the time, morning or afternoon. She agreed to have cream applied to rash and agreed to try to work with staff over showering. Understands she must improve this behavior before she can go home. Also appears at times to be responding to internal stimuli. S/I, H/I: Denies A/VH: Denies Sleep: Napped ADL's: Independent, Needs prompting. Group attendance: None Were meds taken: Yes Any med S/E: None Mental Status Exam Appearance: Disheveled Eye contact: Minimal Behavior: Resistive Speech: Soft, one word answers Mood: Depressed Affect: Flat Thought process: Undetermined Thought Content: Unknown, will not engage in conversation. Cognition: A/O x4 Insight: Poor Judgment: Poor Interventions PRN's used: None Therapeutic interventions: 1:1 to assessment at bedside. Encourage patient to engage in conversation and express her feelings without effect. Provide supportive environment. Q15 minute safety checks. Restraints/seclusion/emergency medication: None Justification of Continued Inpatient Treatment: Patient continues to appear depressed and isolative. Needs further stabilization before discharged.
[2018-11-04 20:00] VITALS: BP 109/64
[2018-11-04 20:01] VITALS: BP 109/64
--- NOTE | 2018-11-04 20:59 | NUR ---
NURSING PROGRESS NOTE: Chief Complaint: Grave disability Legal hold: LPS Conserved Report received from (no report, same nurse) Why are they here: The patient is LPS conserved, was living at [facility] where she stopped bathing. She was showing increased agitation toward staff and smelled of body odor and urine. Pt was not caring for herself. Diagnosis/presenting symptoms: Major depressive disorder, schizophrenia Assessment: What happened this shift: The patient was laying down at change of shift. she is depressed and sad, her affect is flat. Replies mostly with one word answers. She did not eat dinner, when asked she stated "because it doesn't taste good." She did eat lunch. She was up briefly to sit in chair in hallway but would not engage with nurse. Went back to bed, took meds and is currently lying down. S/I, H/I: Denies A/VH: Denies Sleep: sleeping ADL's: Independent, Needs prompting. Group attendance: No groups tonight Were meds taken: Yes Any med S/E: None Mental Status Exam Appearance: Disheveled Eye contact: Minimal Behavior: Resistive Speech: Soft, one word answers Mood: Depressed Affect: Flat Thought process: Undetermined Thought Content: Unknown, will not engage in conversation. Cognition: A/O x4 Insight: Poor Judgment: Poor Interventions PRN's used: None Therapeutic interventions: 1:1 to assessment at bedside. Encourage patient to engage in conversation and express her feelings without effect. Provide supportive environment. Q15 minute safety checks. Restraints/seclusion/emergency medication: None Justification of Continued Inpatient Treatment: Patient continues to appear depressed and isolative. Needs further stabilization before discharged.
[2018-11-05 07:45] VITALS: BP 152/87
[2018-11-05] MEDS: venlafaxine XR 75mg capsule (Q24H) PO SCH (08:13)
[2018-11-05] MEDS: potassium chloride 10mEq ER tablet PO SCH (08:14)
[2018-11-05] MEDS: buPROPion 75mg tablet PO SCH ×2 (08:14→12:45)
[2018-11-05] MEDS: losartan 50mg tablet PO SCH (08:14)
[2018-11-05] MEDS: loratadine 10mg tablet PO SCH (08:14)
[2018-11-05] MEDS: amLODIPine 5mg tablet PO SCH (08:14)
[2018-11-05] MEDS: atorvastatin 10mg tablet PO SCH (08:15)
[2018-11-05] MEDS: topiramate 100mg tablet PO SCH ×2 (08:15→20:23)
[2018-11-05] MEDS: carvedilol 6.25mg tablet PO SCH ×2 (08:15→20:23)
[2018-11-05] MEDS: nicotine 21mg patch - 24 hr TD SCH (09:13)
[2018-11-05] MEDS: nystatin/triamcinolone cream 15gm TP SCH ×2 (09:16→20:00)
--- NOTE | 2018-11-05 16:00 | NUR ---
NURSING PROGRESS NOTE: Chief Complaint: Grave disability Legal hold: LPS Conserved Report received from BANDAR Dominguez, using SBAR. Why are they here: The patient is LPS conserved, was living at [facility] where she stopped bathing. She was showing increased agitation toward staff and smelled of body odor and urine. Pt was not caring for herself. Diagnosis/presenting symptoms: Major depressive disorder, schizophrenia Assessment: What happened this shift: Received client lying down and resting in her room. Pt spoke minimally with a flat affect and did not make eye contact and appears depressed. She got up from bed and walked the grewal and sat in a chair in the hallway, otherwise isolative. Attended and ate meals. Watched some TV in group room. She became tearful but did not want to talk about it. She shower this AM. Medication compliant. She refused to have cream applied to rash. Appears to continue to respond to internal stimuli. S/I, H/I: Denies A/VH: Denies Sleep: Napped ADL's: Independent, Needs prompting. Group attendance: None Were meds taken: Yes Any med S/E: None Mental Status Exam Appearance: Casual Eye contact: Minimal Behavior: Isolative Speech: Soft, one word answers Mood: Depressed Affect: Flat Thought process: Undetermined Thought Content: Unknown, will not engage in conversation. Cognition: A/O x4 Insight: Poor Judgment: Poor Interventions PRN's used: None Therapeutic interventions: 1:1 to assessment at bedside. Encourage patient to engage in conversation and express her feelings without effect. Provide supportive environment. Q15 minute safety checks. Restraints/seclusion/emergency medication: None Justification of Continued Inpatient Treatment: Patient continues to appear depressed and isolative. Needs further stabilization before discharged.
[2018-11-05] MEDS: acetaminophen 325mg tablet PO PRN (18:43)
[2018-11-05 19:25] VITALS: BP 125/90
--- NOTE | 2018-11-05 23:35 | NUR ---
NURSING PROGRESS NOTE: Chief Complaint: Grave disability Legal hold: LPS Conserved Report received from BANDAR Michael with use of SBAR: Why are they here: The patient is LPS conserved, was living at [facility] where she stopped bathing. She was showing increased agitation toward staff and smelled of body odor and urine. Pt was not caring for herself. Diagnosis/presenting symptoms: Major depressive disorder, schizophrenia Assessment: What happened this shift: Received patient lying on her bed complaining of headache. Patient had been given Tylenol a few minutes before and she stated minimal relief at this point. Patient half fact remains extremely flat with no expression. Patient refused to allow the rash under her breasts to be assessed and refused the cream. Patient stated she would allow assessment and application of cream in the morning. Patient denied any discomfort in the area under her breasts. Patient denies auditory hallucinations and denies suicidal thoughts at this time. S/I, H/I: Denies A/VH: Denies Sleep: asleep by 2100, but had restless night, awaking at times ADL's: Independent, Needs prompting. Group attendance: None Were meds taken: Yes Any med S/E: None Mental Status Exam Appearance: Casual Eye contact: Minimal Behavior: Isolative Speech: Soft, one word answers Mood: Depressed Affect: Flat Thought process: Undetermined Thought Content: Unknown, will not engage in conversation. Cognition: A/O x4 Insight: Poor Judgment: Poor Interventions PRN's used: None Therapeutic interventions: 1:1 to assessment at bedside. Encourage patient to engage in conversation and express her feelings without effect. Provide supportive environment. Q15 minute safety checks. Restraints/seclusion/emergency medication: None Justification of Continued Inpatient Treatment: Patient continues to appear depressed and isolative. Needs further stabilization before discharged.
[2018-11-06] MEDS: venlafaxine XR 75mg capsule (Q24H) PO SCH (07:53)
[2018-11-06] MEDS: loratadine 10mg tablet PO SCH (07:53)
[2018-11-06] MEDS: buPROPion 75mg tablet PO SCH ×2 (07:54→12:14)
[2018-11-06] MEDS: amLODIPine 5mg tablet PO SCH (07:54)
[2018-11-06] MEDS: losartan 50mg tablet PO SCH (07:54)
[2018-11-06] MEDS: potassium chloride 10mEq ER tablet PO SCH (07:54)
[2018-11-06] MEDS: carvedilol 6.25mg tablet PO SCH ×2 (07:54→20:38)
[2018-11-06] MEDS: atorvastatin 10mg tablet PO SCH (07:54)
[2018-11-06] MEDS: nicotine 21mg patch - 24 hr TD SCH (07:54)
[2018-11-06] MEDS: topiramate 100mg tablet PO SCH ×2 (07:54→20:38)
[2018-11-06 08:00] VITALS: BP 142/98
[2018-11-06] MEDS: nystatin/triamcinolone cream 15gm TP SCH ×2 (08:00→20:00)
--- NOTE | 2018-11-06 10:41 | NUR ---
NURSING PROGRESS NOTE: Chief Complaint: Grave disability, MDD, schizophrenia Legal hold: LPS Conserved Report received from BANDAR Toscano, using SBAR. Why are they here: The patient is LPS conserved, was living at [facility] where she stopped bathing. She was showing increased agitation toward staff and smelled of body odor and urine. Pt was not caring for herself. Diagnosis/presenting symptoms: Major depressive disorder, schizophrenia, HTN Assessment: What happened this shift: Florinda isolates in her room. She was cooperative and compliant with taking medications. Her affect is very flat. She remembered that she has agreed to shower and the next time will be on Wednesday. when asked about her mood she states "it's okay" When asked if her medications are working she states "I guess so." S/I, H/I: Denies A/VH: Denies Sleep: Napped most of the day ADL's: Independent, Needs prompting. Has shower contract , , Wed Group attendance: None Were meds taken: Yes Any med S/E: None Mental Status Exam Appearance: disheveled Eye contact: fair Behavior: Isolative Speech: Soft, slow, one word answers, poverty of speech Mood: Depressed Affect: Flat Thought process: Poverty Thought Content: Appears to be responding to internal stimuli Cognition: A/O x4 Insight: Poor Judgment: Poor Interventions PRN's used: None Therapeutic interventions: 1:1 to assessment at bedside. Encourage patient to engage in conversation and express her feelings. Medication education. Provide supportive environment. Q15 minute safety checks. Therapeutic milieu Restraints/seclusion/emergency medication: None Justification of Continued Inpatient Treatment: Patient continues to appear depressed and isolative. Needs further medication stabilization before discharged and stable placement
[2018-11-06 19:59] VITALS: BP 120/74
--- NOTE | 2018-11-07 03:37 | NUR ---
NURSING PROGRESS NOTE: Chief Complaint: Grave disability Legal hold: LPS Conserved Report received from BANDAR Crawford with use of SBAR: Why are they here: The patient is LPS conserved, was living at [facility] where she stopped bathing. She was showing increased agitation toward staff and smelled of body odor and urine. Pt was not caring for herself. Diagnosis/presenting symptoms: Major depressive disorder, schizophrenia Assessment: What happened this shift: Pt lying on bed awake at start of shift. One word answers to questions does not answer open ended questions. Affect depressed. Poor eye contact. Agrees when asked that she is depressed. Pt remained in bed all shift took all HS meds refused X2 to assessment of area under breasts or to have ointment applied. S/I, H/I: Denies A/VH: Denies Sleep: sleeping at this time ADL's: Independent, Needs prompting. Group attendance: None Were meds taken: Yes Any med S/E: None Mental Status Exam Appearance: Appropriate Eye contact: Minimal Behavior: Isolative Speech: Soft, one word answers Mood: Depressed Affect: Flat Thought process: Undetermined Thought Content: Unknown, will not engage in conversation. Cognition: A/O x4 Insight: Poor Judgment: Poor Interventions PRN's used: None Therapeutic interventions: 1:1 to assessment at bedside. Encourage patient to engage in conversation and express her feelings without effect. Provide supportive environment. Q15 minute safety checks. Restraints/seclusion/emergency medication: None Justification of Continued Inpatient Treatment: Patient continues to appear depressed and isolative. Needs further stabilization before discharged.
[2018-11-07] MEDS: nicotine 21mg patch - 24 hr TD SCH (07:12)
[2018-11-07] MEDS: carvedilol 6.25mg tablet PO SCH ×2 (07:13→20:05)
[2018-11-07] MEDS: amLODIPine 5mg tablet PO SCH (07:13)
[2018-11-07] MEDS: losartan 50mg tablet PO SCH (07:13)
[2018-11-07] MEDS: atorvastatin 10mg tablet PO SCH (07:13)
[2018-11-07] MEDS: loratadine 10mg tablet PO SCH (07:13)
[2018-11-07] MEDS: topiramate 100mg tablet PO SCH ×2 (07:13→20:05)
[2018-11-07] MEDS: potassium chloride 10mEq ER tablet PO SCH (07:13)
[2018-11-07] MEDS: buPROPion 75mg tablet PO SCH ×2 (07:13→12:32)
[2018-11-07] MEDS: venlafaxine XR 75mg capsule (Q24H) PO SCH (07:14)
[2018-11-07] MEDS: nystatin/triamcinolone cream 15gm TP SCH ×2 (07:52→20:11)
[2018-11-07 08:00] VITALS: BP 146/69
--- NOTE | 2018-11-07 13:12 | NUR ---
NURSING PROGRESS NOTE: Chief Complaint: Grave disability, MDD, schizophrenia Legal hold: LPS Conserved Report received from BANDAR Hughes, using SBAR. Why are they here: The patient is LPS conserved, was living at [facility] care where she stopped bathing. She was showing increased agitation toward staff and smelled of body odor and urine. Pt was not caring for herself. Diagnosis/presenting symptoms: Major depressive disorder, schizophrenia, HTN Assessment: What happened this shift: Patient isolates in her room. She was cooperative and compliant with taking medications. Her affect is very flat. She remembered that she has agreed to shower and the next time will be on Wednesday. She is noncompliant with her medications for her yeast infection and will not allow this nurse to administer them. She lays in the bed for most of the day and her room is becoming very malodorous. S/I, H/I: Denies A/VH: Denies Sleep: Napped most of the day ADL's: Independent, Needs prompting. Has shower contract , Wed Group attendance: None Were meds taken: Yes Any med S/E: None Mental Status Exam Appearance: disheveled, dirty, malodorous Eye contact: fair Behavior: Isolative, slow to respond, sluggish Speech: Soft, slow, one word answers, poverty of speech Mood: Depressed Affect: Flat Thought process: Poverty Thought Content: Appears to be responding to internal stimuli at times Cognition: A/O x4 Insight: Poor Judgment: Poor Interventions PRN's used: None Therapeutic interventions: 1:1 to assessment at bedside. Encourage patient to engage in conversation and express her feelings. Medication education. Provide supportive environment. Q15 minute safety checks. Therapeutic milieu Restraints/seclusion/emergency medication: None Justification of Continued Inpatient Treatment: Patient continues to appear depressed and isolative. Needs further medication stabilization before discharged and stable placement
[2018-11-07 19:39] VITALS: BP 144/83
[2018-11-07 19:47] VITALS: BP 170/97
[2018-11-07 19:58] VITALS: BP 102/54
--- NOTE | 2018-11-08 02:20 | NUR ---
NURSING PROGRESS NOTE: Chief Complaint: Grave disability Legal hold: LPS Conserved Report received from BANDAR Crawford with use of SBAR: Why are they here: The patient is LPS conserved, was living at [facility] where she stopped bathing. She was showing increased agitation toward staff and smelled of body odor and urine. Pt was not caring for herself. Diagnosis/presenting symptoms: Major depressive disorder, schizophrenia Assessment: What happened this shift: Pt in bed at start of shift. Declined to come to group room for snacks. Pt slightly more conversant than last NOC. When asked said she is still depressed but the Doctor will fix my meds. Told she is getting a new roommate asked when. But still one word answers to most questions. Pt did allow skin care to area under breasts and panus for the first time in several days. Area under breasts looks improved from last week area under Panus looks more red and inflamed. S/I, H/I: Denies A/VH: Denies Sleep: sleeping at this time ADL's: Independent, Needs prompting. Group attendance: None Were meds taken: Yes Any med S/E: None Mental Status Exam Appearance: Appropriate Eye contact: Minimal Behavior: Isolative Speech: Soft, one word answers Mood: Depressed Affect: Flat Thought process: Undetermined Thought Content: Unknown, will not engage in conversation. Cognition: A/O x4 Insight: Poor Judgment: Poor Interventions PRN's used: None Therapeutic interventions: 1:1 to assessment at bedside. Encourage patient to engage in conversation and express her feelings without effect. Provide supportive environment. Q15 minute safety checks. Restraints/seclusion/emergency medication: None Justification of Continued Inpatient Treatment: Patient continues to appear depressed and isolative. Needs further stabilization before discharged.
[2018-11-08] MEDS: loratadine 10mg tablet PO SCH (07:20)
[2018-11-08] MEDS: venlafaxine XR 75mg capsule (Q24H) PO SCH (07:20)
[2018-11-08] MEDS: topiramate 100mg tablet PO SCH ×2 (07:20→20:13)
[2018-11-08] MEDS: amLODIPine 5mg tablet PO SCH (07:20)
[2018-11-08] MEDS: potassium chloride 10mEq ER tablet PO SCH (07:21)
[2018-11-08] MEDS: naproxen 500mg tablet PO PRN (07:21)
[2018-11-08] MEDS: atorvastatin 10mg tablet PO SCH (07:21)
[2018-11-08] MEDS: losartan 50mg tablet PO SCH (07:21)
[2018-11-08] MEDS: carvedilol 6.25mg tablet PO SCH ×2 (07:21→20:13)
[2018-11-08] MEDS: nicotine 21mg patch - 24 hr TD SCH (07:22)
[2018-11-08] MEDS: nystatin/triamcinolone cream 15gm TP SCH ×2 (07:23→20:14)
[2018-11-08] MEDS ORDERED: buPROPion 100mg tablet PO SCH (07:30)
[2018-11-08 09:18] VITALS: BP 127/90
[2018-11-08] MEDS: buPROPion SR 100mg tab PO SCH (12:10)
--- NOTE | 2018-11-08 12:57 | NUR ---
NURSING PROGRESS NOTE: Chief Complaint: Grave disability, MDD, schizophrenia Legal hold: LPS Conserved Report received from BANDAR Hughes, using SBAR. Why are they here: The patient is LPS conserved, was living at [facility] where she stopped bathing. She was showing increased agitation toward staff and smelled of body odor and urine. Pt was not caring for herself. decontamination worker is contacting public guardian regarding a higher level of care Diagnosis/presenting symptoms: Major depressive disorder, schizophrenia, HTN Assessment: What happened this shift: Patient was up sitting in a chair in the hallway at shift change. She states she was waiting for her turn to shower. She showered, but when she got out her hair was completely dry and she was still malodorous. Applied cream to breasts and pannus. Pannus is very erythemic. Patient slept most of the day. She did not go to groups. Her affect still appears very flat. S/I, H/I: Denies A/VH: Denies Sleep: Napped most of the day ADL's: Independent, Needs prompting. Has shower contract , Th, Sat Group attendance: None Were meds taken: Yes Any med S/E: None Mental Status Exam Appearance: disheveled, dirty, malodorous Eye contact: fair Behavior: Isolative, slow to respond, sluggish Speech: Soft, slow, one word answers, poverty of speech Mood: Depressed Affect: Flat Thought process: Poverty Thought Content: Appears to be responding to internal stimuli at times Cognition: A/O x4 Insight: Poor Judgment: Poor Interventions PRN's used: None Therapeutic interventions: 1:1 to assessment at bedside. Encourage patient to engage in conversation and express her feelings. Medication education. Provide supportive environment. Q15 minute safety checks. Therapeutic milieu Restraints/seclusion/emergency medication: None Justification of Continued Inpatient Treatment: Patient continues to appear depressed and isolative. Needs further medication stabilization before discharged and stable placement
[2018-11-08 20:00] VITALS: BP 106/51
--- NOTE | 2018-11-09 01:57 | NUR ---
NURSING PROGRESS NOTE: Chief Complaint: Grave disability, MDD, schizophrenia Legal hold: LPS Conserved Report received from BANDAR Crawford, using SBAR. Why are they here: The patient is LPS conserved, was living at [facility] where she stopped bathing. She was showing increased agitation toward staff and smelled of body odor and urine. Pt was not caring for herself. supervisor cemetery workers is contacting public guardian regarding a higher level of care Diagnosis/presenting symptoms: Major depressive disorder, schizophrenia, Assessment: What happened this shift: Pt remained in bed all shift. Affect flat, one word answers, does not answer open ended questions. Allowed skin care to area under breasts and panus. Declined to get out of bed and ambulate. Declined to have hair done. S/I, H/I: Denies A/VH: Denies Sleep: sleeping at this time ADL's: Independent, Needs prompting. Has shower contract Tues, Th, Sat Group attendance: None Were meds taken: Yes Any med S/E: None Mental Status Exam Appearance: disheveled, dirty, malodorous Eye contact: fair Behavior: Isolative, slow to respond, sluggish Speech: Soft, slow, one word answers, poverty of speech Mood: Depressed Affect: Flat Thought process: Poverty Thought Content: Appears to be responding to internal stimuli at times Cognition: A/O x4 Insight: Poor Judgment: Poor Interventions PRN's used: None Therapeutic interventions: 1:1 to assessment at bedside. Encourage patient to engage in conversation and express her feelings. Medication education. Provide supportive environment. Q15 minute safety checks. Therapeutic milieu Restraints/seclusion/emergency medication: None Justification of Continued Inpatient Treatment: Patient continues to appear depressed and isolative. Needs further medication stabilization before discharged and stable placement
[2018-11-09 07:23] VITALS: BP 132/62
[2018-11-09] MEDS: nystatin/triamcinolone cream 15gm TP SCH ×2 (08:00→20:00)
[2018-11-09] MEDS: atorvastatin 10mg tablet PO SCH (08:49)
[2018-11-09] MEDS: nicotine 21mg patch - 24 hr TD SCH (08:49)
[2018-11-09] MEDS: buPROPion SR 100mg tab PO SCH ×2 (08:50→16:32)
[2018-11-09] MEDS: carvedilol 6.25mg tablet PO SCH ×2 (08:50→20:13)
[2018-11-09] MEDS: topiramate 100mg tablet PO SCH ×2 (08:51→20:13)
[2018-11-09] MEDS: potassium chloride 10mEq ER tablet PO SCH (08:51)
[2018-11-09] MEDS: loratadine 10mg tablet PO SCH (08:51)
[2018-11-09] MEDS: losartan 50mg tablet PO SCH (08:52)
[2018-11-09] MEDS: venlafaxine XR 75mg capsule (Q24H) PO SCH (08:52)
[2018-11-09] MEDS: amLODIPine 5mg tablet PO SCH (11:09)
--- NOTE | 2018-11-09 17:02 | NUR ---
NURSING PROGRESS NOTE: Chief Complaint: Grave disability, MDD, schizophrenia Legal hold: LPS Conserved Report received from BANDAR Hughes, using SBAR. Why are they here: The patient is LPS conserved, was living at [facility] where she stopped bathing. She was showing increased agitation toward staff and smelled of body odor and urine. Pt was not caring for herself. anode worker is contacting public guardian regarding a higher level of care Diagnosis/presenting symptoms: Major depressive disorder, schizophrenia, Assessment: Recieved Pt. In bed sleeping this AM. She showered yesterday and appears to be adhering to bathing schedule. Ate meals in group room, otherwise spent day in room lying down. Is depressed and despondent. Talked with her about potential placement and she does not like current residence which is [place]. Encouraged to spend time in group room or in hallway, but declined. Discussed medication changes that have been made while here, and she does not feel they have been effective. Appreciated time spent with her, yet remains isolative. /I, H/I: Denies A/VH: Denies Sleep: ADL's: Independent, Needs prompting. Has shower contract Tu, Th, Sat Group attendance: None Were meds taken: Yes Any med S/E: None Mental Status Exam Appearance: disheveled, dirty, malodorous Eye contact: fair Behavior: Isolative, slow to respond, sluggish Speech: Soft, slow, one word answers, poverty of speech Mood: Depressed Affect: Flat Thought process: Poverty Thought Content: Appears to be responding to internal stimuli at times Cognition: A/O x4 Insight: Poor Judgment: Poor Interventions PRN's used: None Therapeutic interventions: 1:1 to assessment at bedside. Encourage patient to engage in conversation and express her feelings. Medication education. Provide supportive environment. Q15 minute safety checks. Therapeutic milieu Restraints/seclusion/emergency medication: None Justification of Continued Inpatient Treatment: Patient continues to appear depressed and isolative. Needs further medication stabilization before discharged and stable placement
[2018-11-09 19:53] VITALS: BP 119/67
--- NOTE | 2018-11-09 22:45 | NUR ---
NURSING PROGRESS NOTE: Chief Complaint: Grave disability, MDD, schizophrenia Legal hold: LPS Conserved Report received from BANDAR Hughes, using SBAR. Why are they here: The patient is LPS conserved, was living at [facility] where she stopped bathing. She was showing increased agitation toward staff and smelled of body odor and urine. Pt was not caring for herself. welfare case worker is contacting public guardian regarding a higher level of care Diagnosis/presenting symptoms: Major depressive disorder, schizophrenia, Assessment: pt was sleeping in her room at change of shift. 1:1 assessment completed at bedside. Pt states her day was "alright" pt denies s/i. Pt is not talkative, describes her mood as "depressed". Pt reports appetite is good, and she has been sleeping good. Pt declined to have medicine applied to her skin, but did allow me to check her skin. Skin is still somewhat pink, but was clean and dry. Pt took her other meds, and went back to sleep. s/I, H/I: Denies A/VH: Denies Sleep: good ADL's: Independent, Needs prompting. Has shower contract Tues, Th[place]te[place], Sat Group attendance: None Were meds taken: Yes, declined to have topical applied Any med S/E: None Mental Status Exam Appearance: adequately groomed and dressed Eye contact: fair Behavior: Isolative, s Speech: minimal poverty of speech Mood: Depressed Affect: Flat Thought process: linear Thought Content: possibly RIS Cognition: A/O x4 Insight: Poor Judgment: Poor Interventions PRN's used: None Therapeutic interventions: 1:1 to assessment at bedside. Provide supportive environment. Q15 minute safety checks. Therapeutic milieu Restraints/seclusion/emergency medication: None Justification of Continued Inpatient Treatment: Patient continues to appear depressed and isolative. Needs further medication stabilization before discharged and stable placement
[2018-11-10 08:00] VITALS: BP_SYST 130; BP_DIAS 61; BP_DIAS 79
[2018-11-10] MEDS: topiramate 100mg tablet PO SCH ×2 (08:20→20:31)
[2018-11-10] MEDS: venlafaxine XR 75mg capsule (Q24H) PO SCH (08:20)
[2018-11-10] MEDS: potassium chloride 10mEq ER tablet PO SCH (08:20)
[2018-11-10] MEDS: carvedilol 6.25mg tablet PO SCH ×2 (08:21→20:31)
[2018-11-10] MEDS: loratadine 10mg tablet PO SCH (08:21)
[2018-11-10] MEDS: losartan 50mg tablet PO SCH (08:21)
[2018-11-10] MEDS: atorvastatin 10mg tablet PO SCH (08:21)
[2018-11-10] MEDS: buPROPion SR 100mg tab PO SCH ×2 (08:21→13:19)
[2018-11-10] MEDS: nystatin/triamcinolone cream 15gm TP SCH ×2 (08:21→20:31)
[2018-11-10] MEDS: amLODIPine 5mg tablet PO SCH (08:21)
[2018-11-10] MEDS: nicotine 21mg patch - 24 hr TD SCH (08:22)
--- NOTE | 2018-11-10 14:15 | NUR ---
NURSING PROGRESS NOTE: Chief Complaint: Grave disability, MDD, schizophrenia Legal hold: LPS Conserved Report received from BANDAR Toscano, using SBAR. Why are they here: The patient is LPS conserved, was living at [facility] where she stopped bathing. She was showing increased agitation toward staff and smelled of body odor and urine. Pt was not caring for herself. wafer polishing lead worker is contacting public guardian regarding a higher level of care Diagnosis/presenting symptoms: Major depressive disorder, schizophrenia, Assessment: Patient up and showered this morning, except for her hair. She is medication compliant. Reports feeling depressed. Up for meals. s/I, H/I: Denies A/VH: Denies Sleep: good ADL's: Independent, Needs prompting. Has shower contract Kim, Marixa, Ashish Group attendance: None Were meds taken: Yes. Any med S/E: None Mental Status Exam Appearance: Freshly showered, clean and appropriate. Eye contact: Minimal. Behavior: Isolative Speech: minimal, poverty of speech Mood: Depressed Affect: Flat Thought process: linear Thought Content: Eating, sleeping. Cognition: A/O x4 Insight: Poor Judgment: Poor Interventions PRN's used: None Therapeutic interventions: 1:1 to assess severity of symptoms, q15" safety checks. Restraints/seclusion/emergency medication: None Justification of Continued Inpatient Treatment: Patient continues to appear depressed and isolative. Needs further medication stabilization before discharged and stable placement
--- NOTE | 2018-11-10 15:26 | NUR ---
Reassessment 11/10: Meeting needs with PO intake, good appetite eating 75-100% of regular diet. Recommendations: 1) Continue with regular diet 2) Monitor need for ONS 3) Monitor need for additional bowel care 4) Weekly wt Addendum: 11/10/18 at [address] Amended: Links added.
[2018-11-10 19:00] VITALS: BP 106/55
[2018-11-10] MEDS ORDERED: paliperidone palmitate 156 mg/ml inj.**IM only IM ONE (20:45)
--- NOTE | 2018-11-11 04:25 | NUR ---
NURSING PROGRESS NOTE: Chief Complaint: Grave disability, MDD, schizophrenia Legal hold: JOANIE Conserved Report received from Tessa PORTILLO, using SBAR. Why are they here: The patient is LPS conserved, was living at [facility] and care where she stopped bathing. She was showing increased agitation toward staff and smelled of body odor and urine. Pt was not caring for herself. wet room worker is contacting public guardian regarding a higher level of care Diagnosis/presenting symptoms: Major depressive disorder, schizophrenia, Assessment: Pt lying in bed at start of shift, she states she feels like she is doing better, stated she did shower today, stated sleep last night was good, reports good appetite, denies any thoughts of suicide. Her affect is blunted, but she does smile at times if you joke with her. She allowed me to do her skin care and apply her cream to her rash under her breasts and pannus, which she reports is still very itchy. Pt did not sleep well tonight, was up sitting in hallway at times and at one point pt was seen talking to herself and laughing to herself, but pt always denies hallucinations. s/I, H/I: Denies A/VH: Denies, but appeared to be responding to internal stimuli as reported above Sleep: good ADL's: Independent, Needs prompting Group attendance: no groups scheduled this shift Were meds taken: Yes. Any med S/E: None Mental Status Exam Appearance: WNL Eye contact: Minimal. Behavior: pleasant and cooperative Speech: low volume, somewhat slowed Mood: remains depressed Affect: blunted Thought process: linear Thought Content: WNL Cognition: A/O x4 Insight: Poor Judgment: Poor Interventions PRN's used: None Therapeutic interventions: 1:1, assessment, administered medications and assessed effect and side effects, q15" safety checks. Restraints/seclusion/emergency medication: None Justification of Continued Inpatient Treatment: Pt continues to have depression s/s and requires continued medication adjustments.
[2018-11-11 07:47] VITALS: BP 162/87
[2018-11-11] MEDS: topiramate 100mg tablet PO SCH ×2 (07:55→20:26)
[2018-11-11] MEDS: carvedilol 6.25mg tablet PO SCH ×2 (07:55→20:26)
[2018-11-11] MEDS: amLODIPine 5mg tablet PO SCH (07:55)
[2018-11-11] MEDS: venlafaxine XR 75mg capsule (Q24H) PO SCH (07:55)
[2018-11-11] MEDS: nicotine 21mg patch - 24 hr TD SCH (07:55)
[2018-11-11] MEDS: losartan 50mg tablet PO SCH (07:55)
[2018-11-11] MEDS: loratadine 10mg tablet PO SCH (07:56)
[2018-11-11] MEDS: atorvastatin 10mg tablet PO SCH (07:56)
[2018-11-11] MEDS: buPROPion SR 100mg tab PO SCH ×2 (07:56→12:30)
[2018-11-11] MEDS: potassium chloride 10mEq ER tablet PO SCH (07:56)
[2018-11-11] MEDS: nystatin/triamcinolone cream 15gm TP SCH ×2 (08:00→20:00)
--- NOTE | 2018-11-11 16:10 | NUR ---
NURSING PROGRESS NOTE: Chief Complaint: Grave disability, MDD, schizophrenia Legal hold: LPS Conserved Report received from Zahraa PORTILLO, using SBAR. Why are they here: The patient is LPS conserved, was living at [facility] care where she stopped bathing. She was showing increased agitation toward staff and smelled of body odor and urine. Pt was not caring for herself. head loft worker is contacting public guardian regarding a higher level of care Diagnosis/presenting symptoms: Major depressive disorder, schizophrenia, Assessment: What happened today: The patient was awke at change of shift, sitting in group room. Disheveled and hair matted and crusted scalp, has not shampood hair in awhile and appears to not be fully immersing herself in water when showering. Gets up for meals and then isolates in room, sometimes reads, mostly awake but sometimes naps during the day. Medication compliant. Allowed nurse to apply cream to rashes. Education was provided regarding the need for hygiene daily to heal rash and keep skin healthy. Stated she understood and will remain on her showering plan/agreement, and will shower tomorrow. Staff will assist patient to wash hair and self if needed. Staff alerted to patient needs for shower and hygiene tomorrow. Depressed mood and flat affect. However , has made improvement in response time when questioned. Answers questions but with very few words. s/I, H/I: Denies A/VH: Denies Sleep: napped ADL's: Needs encouragement and stay on shower schedule/agreement Group attendance: x1 Were meds taken: Yes. Any med S/E: None Mental Status Exam Appearance: disheveled Eye contact: Minimal. Behavior: cooperative Speech: low volume, somewhat slowed Mood: remains depressed Affect: flat Thought process: linear Thought Content: blunted Cognition: A/O x4 Insight: Poor Judgment: Poor Interventions PRN's used: None Therapeutic interventions: 1:1, assessment, administered medications and assessed effect and side effects, q15" safety checks, education regarding hygiene Restraints/seclusion/emergency medication: None Justification of Continued Inpatient Treatment: Pt continues to have depression s/s and requires continued medication adjustments.
[2018-11-11 20:00] VITALS: BP 102/66
[2018-11-11] MEDS: temazepam 15mg capsule PO PRN (20:26)
--- NOTE | 2018-11-11 23:37 | NUR ---
NURSING PROGRESS NOTE: Chief Complaint: Grave disability, MDD, schizophrenia Legal hold: LPS Conserved Report received from La PORTILLO, using SBAR. Why are they here: The patient is LPS conserved, was living at [facility] and care where she stopped bathing. She was showing increased agitation toward staff and smelled of body odor and urine. Pt was not caring for herself. farmworker fruit is contacting public guardian regarding a higher level of care Diagnosis/presenting symptoms: Major depressive disorder, schizophrenia, Assessment: Pt lying in bed at start of shift, and remained there throughout the shift. Pt denies any changes, says she still feels depressed, but does say it is better. She refused skin care and cream due to being tired. Pt given her new RX of Restoril due to poor sleep, education done on its use and side effects, she verbalized understanding. s/I, H/I: Denies A/VH: Denies Sleep: pts sleep has been poor only slept 1 hour last night, has new rx for Restoril which was given to help sleep ADL's: Independent, Needs prompting Group attendance: no groups scheduled this shift Were meds taken: Yes. Any med S/E: None Mental Status Exam Appearance:lying in bed with clothes on Eye contact: Minimal. Behavior: pleasant and cooperative Speech: low volume, somewhat slowed Mood: remains depressed Affect: flat Thought process: linear Thought Content: WNL Cognition: A/O x4 Insight: Poor Judgment: Poor Interventions PRN's used: None Therapeutic interventions: 1:1, assessment, administered medications and assessed effect and side effects, q15" safety checks. Restraints/seclusion/emergency medication: None Justification of Continued Inpatient Treatment: Pt continues to have depression s/s and requires continued medication adjustments.
[2018-11-12] MEDS: nystatin/triamcinolone cream 15gm TP SCH ×2 (08:00→20:00)
[2018-11-12] MEDS: nicotine 21mg patch - 24 hr TD SCH (08:00)
[2018-11-12 08:23] VITALS: BP 132/91
[2018-11-12] MEDS: losartan 50mg tablet PO SCH (08:25)
[2018-11-12] MEDS: potassium chloride 10mEq ER tablet PO SCH (08:25)
[2018-11-12] MEDS: carvedilol 6.25mg tablet PO SCH ×2 (08:25→20:36)
[2018-11-12] MEDS: venlafaxine XR 75mg capsule (Q24H) PO SCH (08:25)
[2018-11-12] MEDS: loratadine 10mg tablet PO SCH (08:25)
[2018-11-12] MEDS: amLODIPine 5mg tablet PO SCH (08:25)
[2018-11-12] MEDS: buPROPion SR 150mg tablet PO SCH ×2 (08:25→13:10)
[2018-11-12] MEDS: atorvastatin 10mg tablet PO SCH (08:25)
[2018-11-12] MEDS: topiramate 100mg tablet PO SCH ×2 (08:25→20:36)
--- NOTE | 2018-11-12 16:44 | NUR ---
NURSING PROGRESS NOTE: Chief Complaint: Grave disability, MDD, schizophrenia Legal hold: LPS Conserved Report received from Zahraa PORTILLO, using SBAR. Why are they here: The patient is LPS conserved, was living at [facility] and care where she stopped bathing. She was showing increased agitation toward staff and smelled of body odor and urine. Pt was not caring for herself. bee worker is contacting public guardian regarding a higher level of care Diagnosis/presenting symptoms: Major depressive disorder, schizophrenia, Assessment: Received patient awake lying in her bed. Patient resistive to nurses attempts at interaction. Patient refused to get up for breakfast. Patient affect is flat and patient stated she is depressed. Patient denies suicidal ideation at this time and denies auditory hallucinations. Encouraged patient to take a shower and patient did state she would do so later in the day. Patient agreed with the tech that she would shower at 1:30. This she did do, but when checked on patient was not actually under the water in the shower. She was standing outside of the water reaching her hand with a washcloth under the water and rubbing her self down. Patient refused to wash her hair or to let staff help her wash her hair. Patient also refused to put lotion or allow lotion to be put under her breasts or panus. Later in the day patient did agree to allow the tech to put a shower cap with soap in it on her hair and scalp. Patient then combed out her hair. S/I, H/I: Denies A/VH: Denies Sleep: 9.25 hours on night ADL's: Independent, Needs prompting Group attendance: no groups scheduled this shift Were meds taken: Yes. Any med S/E: None Mental Status Exam Appearance:lying in bed with clothes on Eye contact: Minimal. Behavior: pleasant and cooperative Speech: low volume, somewhat slowed Mood: remains depressed Affect: flat Thought process: linear Thought Content: WNL Cognition: A/O x4 Insight: Poor Judgment: Poor Interventions PRN's used: None Therapeutic interventions: 1:1, assessment, administered medications and assessed effect and side effects, q15" safety checks. Restraints/seclusion/emergency medication: None Justification of Continued Inpatient Treatment: Pt continues to have depression s/s and requires continued medication adjustments.
[2018-11-12 19:00] VITALS: BP 103/59
--- NOTE | 2018-11-13 02:43 | NUR ---
NURSING PROGRESS NOTE: Chief Complaint: Grave disability, MDD, schizophrenia Legal hold: LPS Conserved Report received from Alberto PORTILLO, using SBAR. Why are they here: The patient is LPS conserved, was living at [facility] and care where she stopped bathing. She was showing increased agitation toward staff and smelled of body odor and urine. Pt was not caring for herself. abrasive worker is contacting public guardian regarding a higher level of care Diagnosis/presenting symptoms: Major depressive disorder, schizophrenia, Assessment: Pt was lying in bed at the start of the shift, she was awake and denied having any needs at that time. Pt later seen sitting in chair in grewal by the nursing station, I asked her about what happened with the shower this am, because she had agreed to allow Gloria to help her shower the day before. Pt did not recall agreeing to that, she also stated she is afraid of falling in the shower. Pt returned to bed again until med time and took her meds, but refused cream/tx to her rash under breasts/pannus. Pt continues to endorse feeling depressed, states she feels "tired". Discussed PRN Restoril and pt declined due to already feeling tired. She did sleep for a short time and then got up and sat in hallway. She was again seen talking to herself, but she continues to deny hallucinations. I offered her the Restoril at that time, but she continued to decline. She did eventually go back to bed and fall asleep. s/I, H/I: Denies A/VH: Denies but continues to appear to be responding to internal stimuli Sleep: pt slept well the night before with the use of Restoril PRN, pt awoke in the middle of the night and was awake for about 2 hours and declined any Restoril, did return to sleep as reported above ADL's: Needs prompting/ pt not really showering on her own and needs assistance, but will not allow it. Group attendance: no groups scheduled this shift Were meds taken: Yes. Any med S/E: None Mental Status Exam Appearance:pt wearing the same clothing as yesterday, hair appears clean due to being washed on dayshift Eye contact: Minimal Behavior: isolative, apathetic, appears to have some psychomotor retardation, slow speech, slow movements Speech: low volume, somewhat slowed Mood: remains depressed, "tired" Affect: flat Thought process: linear Thought Content: WNL Cognition: A/O x3 Insight: Poor Judgment: Poor Interventions PRN's used: None Therapeutic interventions: 1:1, assessment, administered medications and assessed effect and side effects, q15" safety checks, tried to discuss importance of showering and reassured pt. Restraints/seclusion/emergency medication: None Justification of Continued Inpatient Treatment: Pt continues to have depression s/s and requires continued medication adjustments.
[2018-11-13] MEDS: nicotine 21mg patch - 24 hr TD SCH (07:42)
[2018-11-13] MEDS: carvedilol 6.25mg tablet PO SCH ×2 (07:43→20:50)
[2018-11-13] MEDS: topiramate 100mg tablet PO SCH ×2 (07:43→20:50)
[2018-11-13] MEDS: naproxen 500mg tablet PO PRN (07:43)
[2018-11-13] MEDS: potassium chloride 10mEq ER tablet PO SCH (07:43)
[2018-11-13] MEDS: buPROPion SR 150mg tablet PO SCH ×2 (07:43→12:09)
[2018-11-13] MEDS: atorvastatin 10mg tablet PO SCH (07:43)
[2018-11-13] MEDS: amLODIPine 5mg tablet PO SCH (07:43)
[2018-11-13] MEDS: loratadine 10mg tablet PO SCH (07:43)
[2018-11-13] MEDS: venlafaxine XR 75mg capsule (Q24H) PO SCH (07:43)
[2018-11-13] MEDS: losartan 50mg tablet PO SCH (07:43)
[2018-11-13] MEDS: nystatin/triamcinolone cream 15gm TP SCH ×2 (07:44→20:00)
[2018-11-13 07:45] VITALS: BP 132/81
--- NOTE | 2018-11-13 13:42 | NUR ---
NURSING PROGRESS NOTE: Chief Complaint: Grave disability, MDD, schizophrenia Legal hold: JOANIE Conserved Report received from Zahraa PORTILLO, using SBAR. Why are they here: The patient is LPS conserved, was living at [facility] where she stopped bathing. She was showing increased agitation toward staff and smelled of body odor and urine. Pt was not caring for herself. signal worker is contacting public guardian regarding a higher level of care Diagnosis/presenting symptoms: Major depressive disorder, schizophrenia, Assessment: One to one with patient for assessment. She states she slept well. She is sitting in the hallway in a chair by the nurse's office. Her affect is flat. She answers questions with short answers. She took all of her medications without incident. She appears to be responding to internal stimuli. She smiles and giggles to herself and then looks sad and pensive at other times. This is the longest amount of time I have seen her stay out of her room. S/I, H/I: Denies A/VH: Denies Sleep: Slept well by report. No naps ADL's: Independent, Needs prompting, no shower today Group attendance: no groups scheduled this shift Were meds taken: Yes. Any med S/E: None Mental Status Exam Appearance:lying in bed with clothes on Eye contact: Minimal. Behavior: pleasant and cooperative Speech: low volume, somewhat slowed Mood: remains depressed Affect: flat Thought process: illogical Thought Content: responding to internal stimuli Cognition: A/O x4 Insight: Poor Judgment: Poor Interventions PRN's used: None Therapeutic interventions: 1:1, assessment, administered medications and assessed effect and side effects, q15" safety checks, medication education Restraints/seclusion/emergency medication: None Justification of Continued Inpatient Treatment: Pt continues to have depression s/s and requires continued medication adjustments.
[2018-11-13 19:43] VITALS: BP 112/73
--- NOTE | 2018-11-13 22:01 | NUR ---
NURSING PROGRESS NOTE: Chief Complaint: Grave disability, MDD, schizophrenia Legal hold: LPS Conserved Report received from Ty PORTILLO, using SBAR. Why are they here: The patient is LPS conserved, was living at [facility] and care where she stopped bathing. She was showing increased agitation toward staff and smelled of body odor and urine. Pt was not caring for herself. mortar worker is contacting public guardian regarding a higher level of care Diagnosis/presenting symptoms: Major depressive disorder, schizophrenia, Assessment: Patient sits in the hallway in a chair staring off down the hallway. Her affect is flat and she is pleasant on approach in her words but her demeanor stays the same. She answers questions generally with one word and does not look directly at junior copywriter but rather continues to stare down the hallway. Pt is medication compliant with her oral medication but refuses her cream for under her breasts and pannus. Outside Plant Field Engineer educated pt on why the cream was important but still refused application. S/I, H/I: Denies A/VH: Denies Sleep: see sleep assessment notation ADL's: Independent, Needs prompting Group attendance: no groups scheduled, glove sewer Were meds taken: Yes oral, but refused cream Any med S/E: None Mental Status Exam Appearance: slightly unkept, hair not brushed Eye contact: Minimal. Behavior: pleasant and cooperative Speech: low volume, somewhat slowed Mood: remains depressed Affect: flat Thought process: unable to assess Thought Content: responding to internal stimuli Cognition: A/O x4 Insight: Poor Judgment: Poor Interventions PRN's used: None Therapeutic interventions: 1:1, assessment, administered medications and assessed effect and side effects, q15" safety checks, medication education Restraints/seclusion/emergency medication: None Justification of Continued Inpatient Treatment: Pt continues to have depression s/s and requires continued medication adjustments.
[2018-11-14] MEDS: carvedilol 6.25mg tablet PO SCH ×2 (07:27→20:36)
[2018-11-14] MEDS: atorvastatin 10mg tablet PO SCH (07:27)
[2018-11-14] MEDS: amLODIPine 5mg tablet PO SCH (07:27)
[2018-11-14] MEDS: losartan 50mg tablet PO SCH (07:27)
[2018-11-14] MEDS: buPROPion SR 150mg tablet PO SCH ×2 (07:27→12:06)
[2018-11-14] MEDS: loratadine 10mg tablet PO SCH (07:27)
[2018-11-14] MEDS: topiramate 100mg tablet PO SCH ×2 (07:27→20:36)
[2018-11-14] MEDS: venlafaxine XR 75mg capsule (Q24H) PO SCH (07:27)
[2018-11-14] MEDS: nicotine 21mg patch - 24 hr TD SCH (07:28)
[2018-11-14] MEDS: potassium chloride 10mEq ER tablet PO SCH (07:35)
[2018-11-14] MEDS: nystatin/triamcinolone cream 15gm TP SCH ×2 (07:35→20:41)
[2018-11-14 08:00] VITALS: BP 132/72
--- NOTE | 2018-11-14 14:13 | NUR ---
NURSING PROGRESS NOTE: Chief Complaint: Grave disability, MDD, schizophrenia Legal hold: LPS Conserved Report received from Zahraa PORTILLO, using SBAR. Why are they here: The patient is LPS conserved, was living at [facility] and care where she stopped bathing. She was showing increased agitation toward staff and smelled of body odor and urine. Pt was not caring for herself. community health outreach worker is contacting public guardian regarding a higher level of care Diagnosis/presenting symptoms: Major depressive disorder, schizophrenia, Assessment: Patient was awake at change of shift. She came out to the group room to have coffee and stayed for breakfast, She took her medications without incident. She reports no side effects. She states she is reading a book about hortencia sullivans right now that she enjoys. This nurse asked her if she would like another book to read. She states she would. Found her a Blake Ferny book and she staled she thought it would be a book she would like. She attended morning group. When asked if this nurse could apply her skin medication she stated she would take a shower after lunch and then we could apply the cream. Patient went into the shower after lunch on her own accord. Her mood seems to have brightened and she appears motivated to comply with hygiene requirements. S/I, H/I: Denies A/VH: Denies Sleep: Slept well by report. Several naps ADL's: Independent, shower today Group attendance: yes Were meds taken: Yes. Any med S/E: None Mental Status Exam Appearance: Disheveled, poor grooming Eye contact: Fair Behavior: pleasant and cooperative Speech: low volume, slowed Mood: remains depressed, but less so Affect: restricted Thought process: slow Thought Content: enjoys books, considering returning to [place] Cognition: A/O x4 Insight: fair Judgment: Poor Interventions PRN's used: None Therapeutic interventions: 1:1, assessment, administered medications and assessed effect and side effects, q15" safety checks, medication education Restraints/seclusion/emergency medication: None Justification of Continued Inpatient Treatment: Pt continues to have depression s/s and requires continued medication adjustments and placement.
[2018-11-14 19:30] VITALS: BP 124/79
--- NOTE | 2018-11-14 21:49 | NUR ---
NURSING PROGRESS NOTE: Chief Complaint: Grave disability, MDD, schizophrenia Legal hold: LPS Conserved Report received from Ty PORTILLO, using SBAR. Why are they here: The patient is LPS conserved, was living at [facility] care where she stopped bathing. She was showing increased agitation toward staff and smelled of body odor and urine. Pt was not caring for herself. anode worker is contacting public guardian regarding a higher level of care Diagnosis/presenting symptoms: Major depressive disorder, schizophrenia, Assessment: Patient sits on a chair in the hallway with a flat expression. She responds to scenario writer with one word answers. Detention Deputy asks if she is still feeling depressed she answers, "yes." She rates her depression at a 5/10. She denies wanting to hurt herself. Pt was medication compliant with her pills and even let scenario writer put the cream on that is ordered. There is still redness under her breasts and pannus. Detention Deputy cleaned each spot with wipes and applied the cream. Pt sits back in chair in the hallway and blankly stares down the grewal or closes her eyes while sitting up. Staff asks if she is falling asleep to which she replies,"no." S/I, H/I: Denies A/VH: Denies Sleep: see sleep assessment notation ADL's: Independent, Needs prompting Group attendance: no groups scheduled, assistant shift supervisor Were meds taken: Yes Any med S/E: None Mental Status Exam Appearance: slightly unkept, hair not brushed Eye contact: Minimal. Behavior: pleasant, sits in grewal with a flat expression Speech: low volume, somewhat slowed Mood: remains depressed Affect: flat Thought process: unable to assess Thought Content: unable to assess Cognition: A/O x4 Insight: Poor Judgment: Poor Interventions PRN's used: None Therapeutic interventions: 1:1, assessment, administered medications and assessed effect and side effects, q15" safety checks, medication education Restraints/seclusion/emergency medication: None Justification of Continued Inpatient Treatment: Pt continues to have depression s/s and requires continued medication adjustments.
[2018-11-15 07:28] VITALS: BP 152/86
[2018-11-15] MEDS: atorvastatin 10mg tablet PO SCH (07:28)
[2018-11-15] MEDS: venlafaxine XR 75mg capsule (Q24H) PO SCH (07:28)
[2018-11-15] MEDS: potassium chloride 10mEq ER tablet PO SCH (07:28)
[2018-11-15] MEDS: carvedilol 6.25mg tablet PO SCH ×2 (07:28→20:26)
[2018-11-15] MEDS: amLODIPine 5mg tablet PO SCH (07:28)
[2018-11-15] MEDS: losartan 50mg tablet PO SCH (07:28)
[2018-11-15] MEDS: loratadine 10mg tablet PO SCH (07:28)
[2018-11-15] MEDS: buPROPion SR 150mg tablet PO SCH ×2 (07:28→12:08)
[2018-11-15] MEDS: topiramate 100mg tablet PO SCH ×2 (07:28→20:26)
[2018-11-15] MEDS: nicotine 21mg patch - 24 hr TD SCH (07:29)
[2018-11-15] MEDS: nystatin/triamcinolone cream 15gm TP SCH ×2 (07:29→20:00)
--- NOTE | 2018-11-15 12:25 | NUR ---
NURSING PROGRESS NOTE: Chief Complaint: Grave disability, MDD, schizophrenia Legal hold: JOANIE Conserved Report received from Brigitte PORTILLO, using SBAR. Why are they here: The patient is LPS conserved, was living at [facility] care where she stopped bathing. She was showing increased agitation toward staff and smelled of body odor and urine. Pt was not caring for herself. highway maintenance crew worker is contacting public guardian regarding a higher level of care Diagnosis/presenting symptoms: Major depressive disorder, schizophrenia, Assessment: Patient was easily awwakened for medications. She refused breakfast. She did not attend group. She is refusing to shower today, although she did shower yesterday, ravi did not wash her hair. Still attempting to convince her to wash her hair today. She has stayed in bed for most of the day and is not interacting with staff or other patients. She did not read her book today. S/I, H/I: Denies A/VH: Denies Sleep: Slept well by report. Several naps ADL's: Prompt, may need assistance in shower Group attendance: yes Were meds taken: Yes. Any med S/E: None Mental Status Exam Appearance: Disheveled, poor grooming, malodorous Eye contact: Fair Behavior: anhedonia Speech: low volume, slowed Mood: remains depressed, but less so Affect: restricted Thought process: slow Thought Content: enjoys books, considering returning to [place] Cognition: A/O x4 Insight: fair Judgment: Poor Interventions PRN's used: None Therapeutic interventions: 1:1, assessment, administered medications and assessed effect and side effects, q15" safety checks, medication education Restraints/seclusion/emergency medication: None Justification of Continued Inpatient Treatment: Pt continues to have depression s/s and requires continued medication adjustments and placement.
--- NOTE | 2018-11-15 16:19 | NUR ---
Patient washed her hair today but refused shower
[2018-11-15 20:06] VITALS: BP 122/72
--- NOTE | 2018-11-15 22:43 | NUR ---
NURSING PROGRESS NOTE: Chief Complaint: Grave disability, MDD, schizophrenia Legal hold: LPS Conserved Report received from Ty PORTILLO, using SBAR. Why are they here: The patient is LPS conserved, was living at [facility] where she stopped bathing. She was showing increased agitation toward staff and smelled of body odor and urine. Pt was not caring for herself. adz worker is contacting public guardian regarding a higher level of care Diagnosis/presenting symptoms: Major depressive disorder, schizophrenia, Assessment: Patient lays in bed all shift. She isolates in her room and is not talkative with check writer. She answers simple questions with one word answers. Pt does not even open her eyes to look at check writer. Pt is medication compliant with her oral medication but refuses her cream for under her breasts and pannus. Personal Lines Account Executive educated pt on why the cream was important but still refused application. S/I, H/I: Denies A/VH: Denies Sleep: see sleep assessment notation ADL's: Independent, Needs prompting Group attendance: no groups scheduled, integration software engineer Were meds taken: Yes oral, but refused cream Any med S/E: None Mental Status Exam Appearance: slightly unkept, same clothing as yesterday Eye contact: poor Behavior: lays in bed Speech: low volume, somewhat slowed Mood: remains depressed Affect: flat Thought process: unable to assess Thought Content: responding to internal stimuli Cognition: A/O x4 Insight: Poor Judgment: Poor Interventions PRN's used: None Therapeutic interventions: 1:1, assessment, administered medications and assessed effect and side effects, q15" safety checks, medication education Restraints/seclusion/emergency medication: None Justification of Continued Inpatient Treatment: Pt continues to have depression s/s and requires continued medication adjustments.
[2018-11-16] MEDS: venlafaxine XR 75mg capsule (Q24H) PO SCH (07:47)
[2018-11-16] MEDS: loratadine 10mg tablet PO SCH (07:48)
[2018-11-16] MEDS: atorvastatin 10mg tablet PO SCH (07:48)
[2018-11-16] MEDS: amLODIPine 5mg tablet PO SCH (07:48)
[2018-11-16] MEDS: losartan 50mg tablet PO SCH (07:48)
[2018-11-16] MEDS: buPROPion SR 150mg tablet PO SCH ×2 (07:48→14:03)
[2018-11-16] MEDS: topiramate 100mg tablet PO SCH ×2 (07:48→21:04)
[2018-11-16] MEDS: carvedilol 6.25mg tablet PO SCH ×2 (07:48→21:04)
[2018-11-16] MEDS: potassium chloride 10mEq ER tablet PO SCH (07:49)
[2018-11-16 08:00] VITALS: BP 155/86
[2018-11-16] MEDS: nystatin/triamcinolone cream 15gm TP SCH ×2 (08:00→20:00)
--- NOTE | 2018-11-16 08:47 | NUR ---
Reassessment: [facility] 11/13. Meeting needs with PO intake, good appetite eating 75-100% of regular diet. No nutrition concerns at this time. Recommendations: 1) Continue with regular diet 2) Weekly wt Addendum: 11/16/18 at [address] Amended: Links added.
[2018-11-16] MEDS: nicotine 21mg patch - 24 hr TD SCH (09:39)
--- NOTE | 2018-11-16 17:49 | NUR ---
Chief Complaint: Grave disability, MDD, schizophrenia Legal hold: LPS Conserved Report received from Brigitte PORTILLO, using SBAR. Why are they here: The patient is LPS conserved, was living at [facility] where she stopped bathing. She was showing increased agitation toward staff and smelled of body odor and urine. Pt was not caring for herself. farmworker rice is contacting public guardian regarding a higher level of care Diagnosis/presenting symptoms: F33.2 - Major depressive disorder, recurrent severe without psychotic features, F20.9 - Schizophrenia, unspecified Assessment: Patient is easily awoken to take medications. She states that she slept well the night before. She requests to have her nicotine patch applied after her shower. She also requests to have her cream applied then. She states that she is unsure today if she is happy, as she was yesterday, to go back to [place]. Patient spends her day in her room alone. She is not conversational but does not dismiss interaction either. S/I, H/I: Denies A/VH: Denies Sleep: report received patient slept 9hrs last night ADL's: Independent, showered Group attendance: no Were meds taken: Yes Any med S/E: None Mental Status Exam Appearance: slightly unkept Eye contact: direct Behavior: lays in bed Speech: low volume, soft tone Mood: depressed Affect: flat Thought process: unable to assess Thought Content: unable to assess Cognition: A/O x4 Insight: fair to good Judgment: good Interventions PRN's used: None Therapeutic interventions: 1:1 therapeutic conversation with RN that included active listening, positive reinforcement, q15" safety checks. Restraints/seclusion/emergency medication: None Justification of Continued Inpatient Treatment: Pt continues to have depression s/s and may require medication adjustments.Continued therapeutic support and medication management needed to provide stabilization, prevent decompensation, decreasing risk to patient and readmittance.
[2018-11-16 20:21] VITALS: BP 110/65
--- NOTE | 2018-11-17 00:54 | NUR ---
NURSING PROGRESS NOTE: Chief Complaint: Grave disability, MDD, schizophrenia Legal hold: LPS Conserved Report received from Agnieszka PORTILLO Why are they here: The patient is LPS conserved, was living at [facility] and care where she stopped bathing. She was showing increased agitation toward staff and smelled of body odor and urine. Pt was not caring for herself. distillery worker is contacting public guardian regarding a higher level of care Diagnosis/presenting symptoms: Major depressive disorder, schizophrenia Assessment: Patient is in her room in bed snoring at the change of shift. She easily awakes for a 1:1 assessment but refuses it. She states when an attempt is made to apply cream to under her breast and pannus "It's fine." She request that her bra be washed "Tomorrow" even though she had made a request for it to be washed this evening, she still stated "Tomorrow." When another attempt was made to do an assessment patients stated "Just let me be." Attempts were made to engage patient in conversation and patient was reluctant and did not engage much. This copy writer asked about her books and what she was reading and patient did not respond. She was cooperative with her oral medications before turning herself back around in bed and laying down. S/I, H/I: Denies A/VH: Denies Sleep: Currently sleeping ADL's: Independent, Needs prompting Group attendance: No groups this shift Were meds taken: Yes oral, refused cream Any med S/E: None Mental Status Exam Appearance: Unkept Eye contact: None, keeps her eyes closed Behavior: Sleeping, stayed in bed all shift Speech: Slow, low volume Mood: Depressed Affect:Flat Thought process: Responds minimally to assessment, conversation and questions, unable to assess Thought Content: Preoccupied, responding to internal stimuli Cognition: A/O x4 Insight: Poor Judgment: Poor Interventions PRN's used: None Therapeutic interventions: 1:1 assessment at bedside. Attempt made to establish rapport by providing a safe and supportive environment. Medication education. Q 15 minute safety checks. Restraints/seclusion/emergency medication: None Justification of Continued Inpatient Treatment: Patient continues to have depression s/s and requires continued medication adjustments.
[2018-11-17] MEDS: atorvastatin 10mg tablet PO SCH (07:49)
[2018-11-17] MEDS: venlafaxine XR 75mg capsule (Q24H) PO SCH (07:49)
[2018-11-17] MEDS: amLODIPine 5mg tablet PO SCH (07:50)
[2018-11-17] MEDS: buPROPion SR 150mg tablet PO SCH ×2 (07:50→12:57)
[2018-11-17] MEDS: carvedilol 6.25mg tablet PO SCH ×2 (07:50→21:04)
[2018-11-17] MEDS: potassium chloride 10mEq ER tablet PO SCH (07:50)
[2018-11-17] MEDS: losartan 50mg tablet PO SCH (07:50)
[2018-11-17] MEDS: topiramate 100mg tablet PO SCH ×2 (07:50→21:03)
[2018-11-17] MEDS: loratadine 10mg tablet PO SCH (07:50)
[2018-11-17 08:00] VITALS: BP 126/66
[2018-11-17] MEDS: nystatin/triamcinolone cream 15gm TP SCH ×2 (08:00→20:00)
[2018-11-17] MEDS: nicotine 21mg patch - 24 hr TD SCH (08:21)
--- NOTE | 2018-11-17 16:29 | NUR ---
NURSING PROGRESS NOTE Chief Complaint: Grave disability, MDD, schizophrenia Legal hold: LPS Conserved Report received from Sandi PORTILLO, using SBAR. Why are they here: The patient is LPS conserved, was living at [facility] where she stopped bathing. She was showing increased agitation toward staff and smelled of body odor and urine. Pt was not caring for herself. fabric worker foreman is contacting public guardian regarding a higher level of care Diagnosis/presenting symptoms: F33.2 - Major depressive disorder, recurrent severe without psychotic features, F20.9 - Schizophrenia, unspecified Assessment: Patient is met in the group room sitting with others. Patient states that she slept well last night. RN expressed happiness for seeing patient out of her room today. Patient denies not feeling well and reports yesterday as an off day. All medications taken without issue. Patient allowed RN to apply nystatin cream under both breasts and panis area. Patient states that she agreed to have her bra washed tonight as last night she refused. Patient gets out of bed and sits in the hallway briefly today. She does not attend groups. Alexa from [facility] brought patient books and her own shampoos/body washes. All washes are in patients locker and will be provided per request of patient. S/I, H/I: none reported A/VH: none reported Sleep: patient reports she did not sleep well last night and is tired today ADL's: Independent, needs encouragment Group attendance: no Were meds taken: Yes Any med S/E: None Mental Status Exam Appearance: unkempt Eye contact: direct Behavior: cooperative, semi-cionversational Speech: low volume, soft tone Mood: depressed Affect: flat with brightening Thought process: linear Thought Content: no delusional thought content present Cognition: A/O x4 Insight: fair to good Judgment: fair Interventions PRN's used: None Therapeutic interventions: 1:1 therapeutic conversation with RN that included active listening, positive reinforcement, q15" safety checks. Restraints/seclusion/emergency medication: None Justification of Continued Inpatient Treatment: Pt continues to have depression s/s and may require medication adjustments.Continued therapeutic support and medication management needed to provide stabilization, prevent decompensation, decreasing risk to patient and readmittance.
[2018-11-17 20:57] VITALS: BP 108/59
--- NOTE | 2018-11-17 22:07 | NUR ---
NURSING PROGRESS NOTE: Chief Complaint: Grave disability, MDD, schizophrenia Legal hold: LPS Conserved Report received from Agnieszka PORTILLO Why are they here: The patient is LPS conserved, was living at [facility] and care where she stopped bathing. She was showing increased agitation toward staff and smelled of body odor and urine. Pt was not caring for herself. casting house worker is contacting public guardian regarding a higher level of care Diagnosis/presenting symptoms: Major depressive disorder, schizophrenia Assessment: Patient is in her room in bed at change of shift. She is easily aroused, and talks to this bond underwriter. She requests a snack, and some juice. This is provided for her. Patient is positive tonight and more talkative, she agrees to a 1:1 assessment at her bedside, she states her day was "good" and that she is "a little" depressed, at this time the rash to her pannus/groin area and under her breast is assessed. The area is red, it is cleaned and her medicated ointment is applied. Patient is pleasant and states after getting her cleaned up for the evening "I have no clean clothes." So her clothes are gathered for a wash, along with her bra that she has been stating she would get washed. After her assessment and evening medications, patient returns to bed and goes to sleep. S/I, H/I: Denies A/VH: Denies Sleep: Currently sleeping ADL's: Independent, Needs prompting Group attendance: No groups this shift Were meds taken: Yes Any med S/E: None Mental Status Exam Appearance: Unkept Eye contact: Minimal Behavior: Sleeping Speech: Slow, low volume Mood: Depressed Affect:Flat Thought process: Goal oriented, agrees to do everything she stated she would today. Thought Content: Preoccupied Cognition: A/O x4 Insight: Poor Judgment: Poor Interventions PRN's used: None Therapeutic interventions: 1:1 assessment at bedside. Continued to establish rapport by providing a safe and supportive environment. Medication education. Assess for medication side effects. Q 15 minute safety checks. Restraints/seclusion/emergency medication: None Justification of Continued Inpatient Treatment: Patient continues to have depression s/s and requires continued medication adjustments.
[2018-11-18 08:00] VITALS: BP 132/80
[2018-11-18] MEDS: potassium chloride 10mEq ER tablet PO SCH (08:26)
[2018-11-18] MEDS: topiramate 100mg tablet PO SCH ×2 (08:26→20:44)
[2018-11-18] MEDS: loratadine 10mg tablet PO SCH (08:26)
[2018-11-18] MEDS: atorvastatin 10mg tablet PO SCH (08:26)
[2018-11-18] MEDS: nystatin/triamcinolone cream 15gm TP SCH (08:26)
[2018-11-18] MEDS: amLODIPine 5mg tablet PO SCH (08:26)
[2018-11-18] MEDS: buPROPion SR 150mg tablet PO SCH ×2 (08:26→13:13)
[2018-11-18] MEDS: losartan 50mg tablet PO SCH (08:26)
[2018-11-18] MEDS: carvedilol 6.25mg tablet PO SCH ×2 (08:26→20:47)
[2018-11-18] MEDS: venlafaxine XR 75mg capsule (Q24H) PO SCH (08:26)
[2018-11-18] MEDS: nicotine 21mg patch - 24 hr TD SCH (08:30)
--- NOTE | 2018-11-18 15:18 | NUR ---
NURSING PROGRESS NOTE: Chief Complaint: Grave disability, MDD, schizophrenia Legal hold: LPS Conserved Report received from Sandi PORTILLO Why are they here: The patient is LPS conserved, was living at [facility] and care where she stopped bathing. She was showing increased agitation toward staff and smelled of body odor and urine. Pt was not caring for herself. transfer and line up worker is contacting public guardian regarding a higher level of care Diagnosis/presenting symptoms: Major depressive disorder, schizophrenia Assessment, what has happened this shift: When asked pt if she was feeling depressed today, she replied, "a little." When asked pt to rate her depression, she replied that it was a /10, denies SI/HI/AH/VH. Pt out of room for meals, returns to room/isolates to self after meals, declines to attend groups. Spoke with pt about her shower schedule, agreed to getting her back on track by showering tomorrow (Wednesday.) Pt did allow this RN to cleanse skin folds and apply Mycolog cream. S/I, H/I: Pt denies A/VH: Pt denies Sleep: Slept 7.25 hrs per noc shift report, naps after meals ADL's: Needs encouragement, assistance with showers/shampooing Group attendance: Did not attend group Were meds taken: Yes Any med S/E: None noted or reported Mental Status Exam Appearance: Unkept, greasy hair with flakes, malodorous Eye contact: Fair Behavior: Isolative to self/room, quiet Speech: Slow, low volume, poverty of speech Mood: Depressed Affect:Flat Thought process: Organized, linear Thought Content: Pt does not express her thoughts Cognition: A/O x4 Insight: Fair Judgment: Poor Interventions PRN's used: None Therapeutic interventions: 1:1 assessment, encouragement in personal hygiene/ADLs,medication administration & monitoring,Q 15 minute checks. Restraints/seclusion/emergency medication: None Justification of Continued Inpatient Treatment: Patient continues to need encouragement, supervision, and assistance to perform ADLs. Depression, anhedonia, isolation continues, pt is conserved and guardian does not wish for her to return to [place], seeking appropriate placement.
--- NOTE | 2018-11-18 16:17 | NUR ---
Spoke with Dr Juventino barney: skin moisture and Mycolog cream taking a long time to absorb, also getting all over bra and clothing, requested change to Nystatin powder, okayed.
[2018-11-18 20:00] VITALS: BP 99/60
[2018-11-18] MEDS: temazepam 15mg capsule PO PRN (20:44)
[2018-11-18] MEDS: nystatin 15 GM powder TP SCH (20:44)
--- NOTE | 2018-11-18 22:15 | NUR ---
NURSING PROGRESS NOTE: Chief Complaint: Grave disability, MDD, schizophrenia Legal hold: LPS Conserved Report received from Demetrius PORTILLO Why are they here: The patient is LPS conserved, was living at [facility] and care where she stopped bathing. She was showing increased agitation toward staff and smelled of body odor and urine. Pt was not caring for herself. color worker is contacting public guardian regarding a higher level of care Diagnosis/presenting symptoms: Major depressive disorder, schizophrenia Assessment What has happened this shift: Pt was sleeping in bed at change of shift. 1:1 assessment completed at bedside. pt states she didnt attend groups during the day because she was too tired. Pt c/o of feeling tired and not rested. Encouraged pt to engage in other activities in the evening before bedtime rather than sleeping after dinner. Pt was agreeable to this and sat up in group room watching a movie before going to bed. Pt was med compliant, allowed me to clean reddened areas and apply nystatin powder. Reminded pt tomorrow is her shower day and she agreed. Pt states her skin is "better" her appetite is "better" and her day was "ok". pt denies s/i, states depression continues to be 4/10. S/I, H/I: Pt denies A/VH: Pt denies Sleep: pt reports not sleeping but then didnt want to take prn for sleep. ADL's: Encouraged hygiene Group attendance: Did not attend day time groups Were meds taken: Yes, Coreg held due to bp Any med S/E: None noted or reported Mental Status Exam Appearance: Unkept, greasy hair with flakes, malodorous Eye contact: Fair Behavior: Isolative to self/room, quiet cooperative Speech: Slow, low volume, poverty of speech Mood: Depressed Affect:Flat Thought process: Organized, linear Thought Content: Pt does not express her thoughts Cognition: A/O x4 Insight: Fair Judgment: Poor Interventions PRN's used: None Therapeutic interventions: 1:1 assessment, encouragement in personal hygiene/ADLs,medication administration & monitoring,Q 15 minute checks. Restraints/seclusion/emergency medication: None Justification of Continued Inpatient Treatment: Patient continues to need encouragement, supervision, and assistance to perform ADLs. Depression, anhedonia, isolation continues, pt is conserved and guardian does not wish for her to return to [place], seeking appropriate placement.
[2018-11-19] MEDS: loratadine 10mg tablet PO SCH (07:49)
[2018-11-19] MEDS: losartan 50mg tablet PO SCH (07:49)
[2018-11-19] MEDS: topiramate 100mg tablet PO SCH ×2 (07:49→20:19)
[2018-11-19] MEDS: potassium chloride 10mEq ER tablet PO SCH (07:49)
[2018-11-19] MEDS: buPROPion SR 150mg tablet PO SCH ×2 (07:49→13:04)
[2018-11-19] MEDS: carvedilol 6.25mg tablet PO SCH ×2 (07:49→20:19)
[2018-11-19] MEDS: venlafaxine XR 75mg capsule (Q24H) PO SCH (07:49)
[2018-11-19] MEDS: amLODIPine 5mg tablet PO SCH (07:49)
[2018-11-19] MEDS: nicotine 21mg patch - 24 hr TD SCH (07:54)
[2018-11-19 08:00] VITALS: BP 119/87
[2018-11-19] MEDS: nystatin 15 GM powder TP SCH ×2 (08:00→20:00)
[2018-11-19] MEDS: atorvastatin 10mg tablet PO SCH (08:12)
[2018-11-19] MEDS ORDERED: buPROPion SR 150mg tablet PO ONE (14:00)
[2018-11-19] MEDS ORDERED: buPROPion SR 150mg tablet PO SCH (17:00)
[2018-11-19] MEDS ORDERED: fluconazole 150mg tablet PO ONE (17:05)
--- NOTE | 2018-11-19 17:31 | NUR ---
NURSING PROGRESS NOTE Chief Complaint: Grave disability, MDD, schizophrenia Legal hold: LPS Conserved Report received from Dorcas PORTILLO, using SBAR. Why are they here: The patient is LPS conserved, was living at [facility] where she stopped bathing. She was showing increased agitation toward staff and smelled of body odor and urine. Pt was not caring for herself. sheetmetal trades worker is contacting public guardian regarding a higher level of care Diagnosis/presenting symptoms: F33.2 - Major depressive disorder, recurrent severe without psychotic features, F20.9 - Schizophrenia, unspecified Assessment: What has happened this shift: Patient presents sitting in the group room at change of shift and stays there for breakfast. She requests to have her patch applied after her shower. After breakfast patient stays in her chair and begins to cry, she quietly remains there for the next couple hours crying. She states that she does not want to discuss it. After some time, when asked, she states that she feels a little better from the cry. She attends outside group on the patio. Washes her hair but refuses to wash her body. After shower she returns to group room and is tearful on and off the rest of the day. She refuses nicotine patch and powder. S/I, H/I: none reported A/VH: none reported Sleep: patient reports she did not sleep well last night and is tired today ADL's: Independent, needs encouragement Group attendance: yes Were meds taken: Yes Any med S/E: None Mental Status Exam Appearance: unkempt Eye contact: occasional direct Behavior: crying, cooperative, semi-conversational Speech: low volume, soft tone Mood: depressed Affect: appropriate to mood and behavior Thought process: linear Thought Content: no delusional thought content present Cognition: A/O x4 Insight: fair to good Judgment: fair Interventions PRN's used: None Therapeutic interventions: 1:1 therapeutic conversation with RN that included active listening, positive reinforcement, q15" safety checks. Restraints/seclusion/emergency medication: None Justification of Continued Inpatient Treatment: Pt continues to have depression s/s and may require medication adjustments.Continued therapeutic support and medication management needed to provide stabilization, prevent decompensation, decreasing risk to patient and readmittance.
[2018-11-19 19:00] VITALS: BP 154/90
[2018-11-19 20:00] VITALS: BP 154/90
[2018-11-19] MEDS: acetaminophen 325mg tablet PO PRN (20:21)
--- NOTE | 2018-11-19 23:44 | NUR ---
NURSING PROGRESS NOTE: Chief Complaint: Grave disability, MDD, schizophrenia. Legal hold: LPS Conserved Report received from BANDAR Aaron. Why are they here: This is a patient from [facility] that was place on [address] for grave disability due to not showering for a week. She states that it's too hard and the water mai her. Diagnosis/presenting symptoms: Major Depressive disorder, schizophrenia, hopeless, helpless, Anhedonia, isolative. Assessment What has happened this shift: The patient was found in the group room watching tv. She agreed to 1:1 in her room, but then didn't want to talk. The patient does not get involved in anything going on around her. She will sit for hours in a chair in the hallway and talk to nobody. The patient denies depression, but appears depressed with flat affect, isolation, and poor hygiene. She refused Nystatin powder, but took her HS meds then went to bed. S/I, H/I: Denies A/VH: denies Sleep: asked for sleeping pill, but then refused. ADL's: Self, but needs encouragement. Group attendance: No groups tonight. Were meds taken: Yes. Any med S/E: None noted or reported Mental Status Exam Appearance: Unkept, greasy hair with flakes, malodorous Eye contact: Does not look at me. Behavior: Isolative to self/room, quiet cooperative. Speech: Slow, quiet. Mood: Depressed Affect:Flat Thought process: Organized, linear Thought Content: Pt does not express her thoughts. Cognition: A/O x4 Insight: Fair Judgment: Poor Interventions PRN's used: None Therapeutic interventions: 1:1 assessment, encouragement in personal hygiene/ADLs,medication administration & monitoring,Q 15 minute checks. Restraints/seclusion/emergency medication: None Justification of Continued Inpatient Treatment: Patient continues to need encouragement, supervision, and assistance to perform ADLs. Depression, anhedonia, isolation continues, pt is conserved and guardian does not wish for her to return to [place], seeking appropriate placement.
[2018-11-20 07:48] VITALS: BP 130/90
[2018-11-20] MEDS: nystatin 15 GM powder TP SCH ×2 (08:00→20:00)
[2018-11-20] MEDS ORDERED: buPROPion SR 150mg tablet PO SCH ×2 (08:00)
[2018-11-20] MEDS: potassium chloride 10mEq ER tablet PO SCH (08:35)
[2018-11-20] MEDS: nicotine 21mg patch - 24 hr TD SCH (08:35)
[2018-11-20] MEDS: loratadine 10mg tablet PO SCH (08:35)
[2018-11-20] MEDS: topiramate 100mg tablet PO SCH ×2 (08:37→20:42)
[2018-11-20] MEDS: losartan 50mg tablet PO SCH (08:37)
[2018-11-20] MEDS: venlafaxine XR 75mg capsule (Q24H) PO SCH (08:37)
[2018-11-20] MEDS: atorvastatin 10mg tablet PO SCH (08:37)
[2018-11-20] MEDS: carvedilol 6.25mg tablet PO SCH ×2 (08:37→20:42)
[2018-11-20] MEDS: naproxen 500mg tablet PO PRN (10:56)
[2018-11-20] MEDS: buPROPion SR 150mg tablet PO SCH (12:13)
[2018-11-20] MEDS: amLODIPine 5mg tablet PO SCH (12:14)
--- NOTE | 2018-11-20 17:49 | NUR ---
NURSING PROGRESS NOTE Chief Complaint: Grave disability, MDD, schizophrenia Legal hold: LPS Conserved Report received from Chepe PORTILLO, using SBAR. Why are they here: The patient is LPS conserved, was living at [facility] and care where she stopped bathing. She was showing increased agitation toward staff and smelled of body odor and urine. Pt was not caring for herself. hair worker is contacting public guardian regarding a higher level of care Diagnosis/presenting symptoms: F33.2 - Major depressive disorder, recurrent severe without psychotic features, F20.9 - Schizophrenia, unspecified Assessment: What has happened this shift: Patient is met in the group room this morning. She states that she is feeling better today than she was yesterday. RN explained increase in Wellbutirn, patient denies any questions and nods her head in understanding. She takes all her medications without issue. Throughout the day patient does not isolate in her room. She stays around others and periodically she is observed smiling. She finds this RN to report that she would like her naproxin for back pain. Later she finds nurse again to ask for nicorette. Patient has not taken this since she has been here and there is no order. RN discussed this with patient and encouragemed patient to not add more nicotine when she has done so well cutting back. Pateint refused nystatin powder. Patient does not cry today. S/I, H/I: none reported A/VH: none reported Sleep: patient reports she did not sleep well last night ADL's: Independent, needs encouragement Group attendance: did not attend outdoor patio group Were meds taken: Yes Any med S/E: None Mental Status Exam Appearance: unkempt Eye contact: occasional direct Behavior: cooperative, semi-conversational Speech: low volume, soft tone Mood: improved today however still depressed Affect: flat, cmiling observed a couple times Thought process: linear Thought Content: no delusional thought content present Cognition: A/O x4 Insight: fair to good Judgment: fair Interventions PRN's used: None Therapeutic interventions: 1:1 therapeutic conversation with RN that included active listening, positive reinforcement, q15" safety checks. Restraints/seclusion/emergency medication: None Justification of Continued Inpatient Treatment: Pt continues to have depression s/s and may require medication adjustments.Continued therapeutic support and medication management needed to provide stabilization, prevent decompensation, decreasing risk to patient and readmittance.
[2018-11-20 19:56] VITALS: BP 162/90
--- NOTE | 2018-11-21 02:14 | NUR ---
RN PROGRESS NOTE: Chief Complaint: Grave disability, MDD, schizophrenia. Legal hold: LPS Conserved Report received from BANDAR Aaron. Why are they here: This is a patient from [facility] that was place on 5150 for grave disability due to not showering for a week. She states that it's too hard and the water mai her. Diagnosis/presenting symptoms: Major Depressive Disorder, Schizophrenia, hopeless, helpless, Anhedonia, isolative. Assessment: What has happened this shift: The patient was sleeping at shift change. She was woken and 1:1 completed as much as possible. The patient initially agreed to talk to me, then declined. The patient agreed to have one of the female nurses apply Nystatin to her breast and pannus, then declined. The patient went back to sleep, and I woke her for HS meds. She took them without issue, then back to sleep. After a few minutes she got up, came to the hallway and sat in a chair for hours. She does not speak to anybody, or notice anything around her. After falling asleep in the chair, she finally, after multiple attempts, went to bed. S/I, H/I: Denies A/VH: denies Sleep: On and off throughout the day and night. ADL's: Self, but needs encouragement. Group attendance: No groups tonight. Were meds taken: Yes. Any med S/E: None noted or reported Mental Status Exam: Appearance: Unkept, greasy hair with flakes, malodorous Eye contact: Does not look at me. Behavior: Isolative to self/room, quiet, cooperative. Speech: Slow, quiet. Mood: Depressed Affect:Flat Thought process: Organized, linear Thought Content: Pt does not express her thoughts. Cognition: A/O x4 Insight: Fair Judgment: Poor Interventions: PRN's used: None Therapeutic interventions: 1:1 assessment, encouragement in personal hygiene/ADLs,medication administration & monitoring,Q 15 minute checks. Restraints/seclusion/emergency medication: None Justification of Continued Inpatient Treatment: Patient continues to need encouragement, supervision, and assistance to perform ADLs. Depression, anhedonia, isolation continues, pt is conserved and guardian does not wish for her to return to [place], seeking appropriate placement.
[2018-11-21 08:00] VITALS: BP 165/87
[2018-11-21] MEDS: nystatin 15 GM powder TP SCH ×2 (08:00→20:00)
[2018-11-21] MEDS: amLODIPine 5mg tablet PO SCH (08:02)
[2018-11-21] MEDS: nicotine 21mg patch - 24 hr TD SCH (08:02)
[2018-11-21] MEDS: topiramate 100mg tablet PO SCH ×2 (08:03→20:44)
[2018-11-21] MEDS: atorvastatin 10mg tablet PO SCH (08:03)
[2018-11-21] MEDS: venlafaxine XR 75mg capsule (Q24H) PO SCH (08:03)
[2018-11-21] MEDS: loratadine 10mg tablet PO SCH (08:03)
[2018-11-21] MEDS: buPROPion SR 150mg tablet PO SCH ×3 (08:04→20:44)
[2018-11-21] MEDS: potassium chloride 10mEq ER tablet PO SCH (08:04)
[2018-11-21] MEDS: losartan 25mg tablet PO SCH (08:04)
[2018-11-21] MEDS: carvedilol 6.25mg tablet PO SCH ×2 (08:04→20:45)
--- NOTE | 2018-11-21 14:40 | NUR ---
RN PROGRESS NOTE: Chief Complaint: Grave disability, MDD, schizophrenia. Legal hold: LPS Conserved Report received from BANDAR Mo. Why are they here: This is a patient from [facility] that was place on 5150 for grave disability due to not showering for a week. She states that it's too hard and the water mai her. Diagnosis/presenting symptoms: Major Depressive Disorder, Schizophrenia, hopeless, helpless, Anhedonia, isolative. Assessment: What has happened this shift: The patient was sleeping at shift change. She was able to get up for meals but ate very little. She took her medications then went back to sleep. Has been asleep in bed most of day. She does not want to get up or answer questions. Very depressed mood with total flat affect. MD aware. S/I, H/I: Denies A/VH: denies Sleep: most of day ADL's: Self, but needs encouragement. Group attendance: None Were meds taken: Yes. Any med S/E: None noted or reported Mental Status Exam: Appearance: disheveled Eye contact: poor Behavior: Isolative to self/room, quiet, sleeping Speech: Slow, quiet. Mood: Depressed Affect:Flat Thought process: unable to assess Thought Content: Pt does not express her thoughts. Cognition: A/O x4 Insight: poor Judgment: Poor Interventions: PRN's used: None Therapeutic interventions: 1:1 assessment, encouragement in personal hygiene/ADLs,medication administration & monitoring,Q 15 minute checks. Restraints/seclusion/emergency medication: None Justification of Continued Inpatient Treatment: Patient continues to need encouragement, supervision, and assistance to perform ADLs. Depression, anhedonia, isolation continues, pt is conserved and guardian does not wish for her to return to [place], seeking appropriate placement.
[2018-11-21 19:58] VITALS: BP 117/72
[2018-11-21] MEDS: temazepam 15mg capsule PO PRN (20:45)
--- NOTE | 2018-11-21 23:23 | NUR ---
RN PROGRESS NOTE: Chief Complaint: Grave disability, MDD, schizophrenia. Legal hold: LPS Conserved Report received from BANDAR Tovar. Why are they here: This is a patient from [facility] that was place on 5150 for grave disability due to not showering for a week. She states that it's too hard and the water mai her. Diagnosis/presenting symptoms: Major Depressive Disorder, Schizophrenia, hopeless, helpless, Anhedonia, isolative. Assessment: What has happened this shift: The patient was in the hallway chair at shift change. She had her eyes closed and appeared to be dozing. This patient does not engage in conversation, but will occasionally answer a question. When asked about her day, she responded, "I'm feeling better." She will not explain what she means by "better." When asked if she's feeling depressed, she says, "not so depressed." The patient responded to a question about how she's sleeping, "I never get 8 hours sleep unless I'm at home." She got up and walked out. The patient took her HS meds, then went to bed. She again refused Nystatin powder to her breasts and pannus. S/I, H/I: Denies A/VH: denies Sleep: On and off throughout the day and night. ADL's: Self, but needs encouragement. Group attendance: No groups tonight. Were meds taken: Yes. Any med S/E: None noted or reported Mental Status Exam: Appearance: Unkept, greasy hair with flakes, malodorous Eye contact: Poor. Behavior: Isolative to self/room, quiet. Speech: Slow, quiet. Mood: "Better." Affect: Flat Thought process: Organized, linear Thought Content: Pt does not express her thoughts. Cognition: A/O x4 Insight: Fair Judgment: Poor Interventions: PRN's used: None Therapeutic interventions: 1:1 assessment, encouragement in personal hygiene/ADLs,medication administration & monitoring,Q 15 minute checks. Restraints/seclusion/emergency medication: None Justification of Continued Inpatient Treatment: Patient continues to need encouragement, supervision, and assistance to perform ADLs. Depression, anhedonia, isolation continues, pt is conserved and guardian does not wish for her to return to [place], seeking appropriate placement.
[2018-11-22 08:00] VITALS: BP 144/90
[2018-11-22] MEDS: nystatin 15 GM powder TP SCH ×2 (08:00→20:00)
[2018-11-22] MEDS: potassium chloride 10mEq ER tablet PO SCH (08:28)
[2018-11-22] MEDS: amLODIPine 5mg tablet PO SCH (08:29)
[2018-11-22] MEDS: atorvastatin 10mg tablet PO SCH (08:29)
[2018-11-22] MEDS: topiramate 100mg tablet PO SCH ×2 (08:29→20:01)
[2018-11-22] MEDS: losartan 25mg tablet PO SCH (08:30)
[2018-11-22] MEDS: venlafaxine XR 75mg capsule (Q24H) PO SCH (08:30)
[2018-11-22] MEDS: loratadine 10mg tablet PO SCH (08:31)
[2018-11-22] MEDS: carvedilol 6.25mg tablet PO SCH ×2 (08:31→19:58)
[2018-11-22] MEDS: buPROPion SR 150mg tablet PO SCH ×3 (08:32→19:58)
[2018-11-22] MEDS: nicotine 21mg patch - 24 hr TD SCH (15:01)
--- NOTE | 2018-11-22 17:31 | NUR ---
RN PROGRESS NOTE: Chief Complaint: Grave disability, MDD, schizophrenia. Legal hold: LPS Conserved Report received from BANDAR Briggs with use of SBAR. Why are they here: This is a patient from [facility] that was place on 5150 for grave disability due to not showering for a week. She states that it's too hard and the water mai her. Diagnosis/presenting symptoms: Major Depressive Disorder, Schizophrenia, hopeless, helpless, Anhedonia, isolative. Assessment: What has happened this shift: The patient was awake in bed at shift change. She was able to get up for meals and attended AM group. She took her medications. Her mood was significantly brighter today and she smiled throughout the morning. She stated it was due to a good nights sleep. She showered after lunch and rested in bed. Spent part of afternoon in chair in the grewal. Was drinking a lot of water in am due to dry mouth. Spoke with Dr Jauregui who is ok with minor SE and no med changes made. S/I, H/I: Denies A/VH: denies Sleep: most of day ADL's: Self, but needs encouragement. Group attendance: None Were meds taken: Yes. Any med S/E: None noted or reported Mental Status Exam: Appearance: Groomed after shower Eye contact: poor Behavior: Isolative to self/room, quiet, sleeping Speech: Slow, quiet. Mood: Depressed Affect:Flat Thought process: unable to assess Thought Content: Pt does not express her thoughts. Cognition: A/O x4 Insight: poor Judgment: Poor Interventions: PRN's used: None Therapeutic interventions: 1:1 assessment, encouragement in personal hygiene/ADLs,medication administration & monitoring,Q 15 minute checks. Restraints/seclusion/emergency medication: None Justification of Continued Inpatient Treatment: Patient continues to need encouragement, supervision, and assistance to perform ADLs. Depression, anhedonia, isolation continues, pt is conserved and guardian does not wish for her to return to [place], seeking appropriate placement.
[2018-11-22 20:38] VITALS: BP 133/83
--- NOTE | 2018-11-23 01:15 | NUR ---
RN PROGRESS NOTE: Chief Complaint: Grave disability, MDD, schizophrenia. Legal hold: LPS Conserved Report received from: BANDAR Michael with use of SBAR. Why are they here: This is a patient from [facility] that was placed on 5150 for grave disability due to not showering for a week. She states that it's too hard and the water mai her. Diagnosis/presenting symptoms: Major Depressive Disorder, Schizophrenia, hopeless, helpless, Anhedonia, isolative. Assessment: What has happened this shift: The patient was resting in bed at shift change. She did not attend evening group, but went to the group room for snack. She stated her day was better since she was able to get some sleep last night. She refused her Nystatin powder, saying she'd like to apply it in the morning. She took a shower this afternoon, and when asked if she feels as she might be able to keep up a hygienic routine she stated "Yes. Maybe." Reiterated she is feeling better today due to improved sleep the night before. Patient drinking normal amounts of water this shift as opposed to AM shift, with no c/o of dry mouth. Spent part of the shift in the chair in the grewal before turning in for bed. S/I, H/I: Denies A/VH: Denies Sleep: Most of the shift ADL's: Self, but needs encouragement. Group attendance: None, but joined in the group room for snack. Were meds taken: Yes; Nystatin refused. Any med S/E: None noted or reported Mental Status Exam: Appearance: Groomed Eye contact: Poor Behavior: Isolative to self/room, quiet, sleeping Speech: Slow, quiet, poverty Mood: Depressed Affect:Flat Thought process: Unable to assess Thought Content: Pt does not express her thoughts. Cognition: A/O x4 Insight: Poor Judgment: Poor Interventions: PRN's used: None Therapeutic interventions: 1:1 assessment, encouragement to continue compliance with personal hygiene/ADLs, medication administration & monitoring, Q15 minute checks. Restraints/seclusion/emergency medication: None Justification of Continued Inpatient Treatment: Patient continues to need encouragement, supervision, and assistance to perform ADLs. Depression, anhedonia, isolation continues, pt is conserved and guardian does not wish for her to return to [place], seeking appropriate placement. Addendum: 11/23/18 at 4 by Debby Mathews RN Pt up to sit in chair in grewal from [id number] before returning to her room. Addendum: 11/23/18 at 0348 by Debby Mathews RN Pt up to sit in chair in grewal from [id number] before returning to room.
[2018-11-23 08:00] VITALS: BP 130/86
[2018-11-23] MEDS: nystatin 15 GM powder TP SCH ×2 (08:00→20:00)
[2018-11-23] MEDS: nicotine 21mg patch - 24 hr TD SCH (08:00)
[2018-11-23] MEDS: atorvastatin 10mg tablet PO SCH (08:23)
[2018-11-23] MEDS: venlafaxine XR 75mg capsule (Q24H) PO SCH (08:23)
[2018-11-23] MEDS: carvedilol 6.25mg tablet PO SCH ×2 (08:23→20:32)
[2018-11-23] MEDS: buPROPion SR 150mg tablet PO SCH ×3 (08:23→20:33)
[2018-11-23] MEDS: loratadine 10mg tablet PO SCH (08:23)
[2018-11-23] MEDS: potassium chloride 10mEq ER tablet PO SCH (08:23)
[2018-11-23] MEDS: amLODIPine 5mg tablet PO SCH (08:23)
[2018-11-23] MEDS: topiramate 100mg tablet PO SCH ×2 (08:23→20:32)
[2018-11-23] MEDS: losartan 25mg tablet PO SCH (08:24)
--- NOTE | 2018-11-23 15:39 | NUR ---
Reassessment: [facility] 11/13. Meeting needs with PO intake, good appetite eating 75-100% of regular diet. She has lost 2% of her body weight in one month however it is not a significant weight loss. No nutrition concerns at this time. Recommendations: 1) Continue with regular diet 2) Weekly wt Addendum: 11/23/18 at [address] Amended: Links added.
--- NOTE | 2018-11-23 17:00 | NUR ---
RN PROGRESS NOTE: Chief Complaint: Grave disability, MDD, schizophrenia. Legal hold: LPS Conserved Report received from: Debby PORTILLO with use of SBAR. Why are they here: This is a patient from [facility] that was placed on 5150 for grave disability due to not showering for a week. She states that it's too hard and the water mai her. Diagnosis/presenting symptoms: Major Depressive Disorder, Schizophrenia, hopeless, helpless, Anhedonia, isolative. Assessment: What has happened this shift: The patient was resting in bed at shift change. She is observed smiling to herself. When asked how she is doing, she states Im doing good, just thinking. She states that she isnt thinking about anything good nor anything bad, just thinking. Patient refuses nystatin powder and states that she wants it on tonight. Patient is observed talking to self while she is in her room but denies A/VH. She does not attend group but is observed sitting in the grewal. S/I, H/I: Denies A/VH: Denies Sleep: reports sleeping well the night before ADL's: Self, but needs encouragement. Group attendance: no Were meds taken: Yes; Nystatin refused. Any med S/E: None noted or reported Mental Status Exam: Appearance: dishevled Eye contact: direct Behavior: Isolative to self/room, friendly and cooperative Speech: clear, soft tone, more conversational than in past shifts Mood: reports good mood Affect: restricted with brightening Thought process: Unable to assess Thought Content: Pt does not express her thoughts. Cognition: A/O x4 Insight: Poor Judgment: Poor Interventions: PRN's used: None Therapeutic interventions: 1:1 therapeutic conversation with RN that included active listening, positive reinforcement, q15" safety checks. Restraints/seclusion/emergency medication: None Justification of Continued Inpatient Treatment: Patient continues to need encouragement, supervision, and assistance to perform ADLs. Depression, anhedonia, isolation continues, pt is conserved and guardian does not wish for her to return to [place], seeking appropriate placement. Continued therapeutic support and medication management needed to provide stabilization, prevent decompensation, decreasing risk to patient and readmittance.
[2018-11-23 20:00] VITALS: BP 131/62
--- NOTE | 2018-11-24 00:43 | NUR ---
RN PROGRESS NOTE: Chief Complaint: Grave disability, MDD, schizophrenia. Legal hold: LPS Conserved Report received from: BANDAR Aaron with use of SBAR. Why are they here: This is a patient from [facility] that was placed on 5150 for grave disability due to not showering for a week. She states that it's too hard and the water mai her. Diagnosis/presenting symptoms: Major Depressive Disorder, Schizophrenia, hopeless, helpless, Anhedonia, isolative. Assessment: What has happened this shift: Pt sitting in hallway in a chair at the start of the shift and would go down to her room at times and then return to hallway chair. Pt ate her evening snack in the chair. When she is sitting there she will close her eyes and is whispering to herself, when asked if she is hearing voices she always denies. She engages with staff upon approach, she smiles when staff jokes with her. We discussed what the plan is for her discharge, and she stated that the Dr told her that she could not return to her prior residence and that her conservator was looking for alternate placement. She reports feeling better overall, denies any thoughts of suicide, has been compliant with her showering. Pt has been refusing her nystatin powder, which pt states is because she doesn't like the powder, and would prefer the cream again. Pt took her meds without problems and then went to bed. S/I, H/I: Denies A/VH: Denies but continues to talk to self at times Sleep: pt still wakes up frequently at night, she refuses to take Restoril stating it makes her too groggy ADL's: Independent, but needs encouragement. Group attendance: No groups scheduled this shift Were meds taken: Yes; Nystatin refused, pt states she doesn't like the powder and would like the cream again Any med S/E: None noted or reported Mental Status Exam: Appearance: WNL, hygiene appears good Eye contact: fair Behavior: pt sits in hallway chair or is in bed Speech: soft, somewhat slowed Mood: "better" Affect:blunted, but pt does smile when staff jokes with her Thought process: linear Thought Content: no delusions, denies S/I, denies hallucinations, but appears to be responding to internal stimuli AEB by talking to herself Cognition: A/O x4 Insight: Poor Judgment: Poor Interventions: PRN's used: None Therapeutic interventions: 1:1 ,assessment, medication administration & monitoring, Q15 minute checks. Restraints/seclusion/emergency medication: None Justification of Continued Inpatient Treatment: Pt is conserved and is pending placement, she continues to need med adjustments due to continued s/s of depression.
[2018-11-24] MEDS: losartan 25mg tablet PO SCH (07:44)
[2018-11-24] MEDS: atorvastatin 10mg tablet PO SCH (07:44)
[2018-11-24] MEDS: buPROPion SR 150mg tablet PO SCH ×3 (07:44→20:57)
[2018-11-24] MEDS: loratadine 10mg tablet PO SCH (07:44)
[2018-11-24] MEDS: topiramate 100mg tablet PO SCH ×2 (07:45→20:57)
[2018-11-24] MEDS: venlafaxine XR 75mg capsule (Q24H) PO SCH (07:45)
[2018-11-24] MEDS: potassium chloride 10mEq ER tablet PO SCH (07:45)
[2018-11-24] MEDS: carvedilol 6.25mg tablet PO SCH ×2 (07:45→20:56)
[2018-11-24] MEDS: amLODIPine 5mg tablet PO SCH (07:45)
[2018-11-24 07:55] VITALS: BP 151/89
[2018-11-24] MEDS: nicotine 21mg patch - 24 hr TD SCH (08:00)
--- NOTE | 2018-11-24 16:59 | NUR ---
RN PROGRESS NOTE: Chief Complaint: Grave disability, MDD, schizophrenia. Legal hold: LPS Conserved Report received from: BANDAR Vital with use of SBAR. Why are they here: This is a patient from [facility] that was placed on 5150 for grave disability due to not showering for a week. She states that it's too hard and the water mai her. Diagnosis/presenting symptoms: Major Depressive Disorder, Schizophrenia, hopeless, helpless, Anhedonia, isolative. Assessment: What has happened this shift: Patient is met in the grewal at change of shift. She states that she slept well the night before. She denies any pain in her back. She takes all medications as prescribed and requests to have her nicotine patch applied after she showers. She states that she plans to shower in the afternoon. She smiles occasionally and overall deamenor is improved. Patient reports that she is not feeling well today and it is unrelated to mood. She states My nose is runny and I feel icky. Warm tea provided, temp 98.1. Patient joined another patient to watch a movie int he rec room. S/I, H/I: Denies A/VH: Denies but continues to talk to self at times Sleep: patient states she slept well last night and rests during the day. ADL's: Independent, but needs encouragement. Group attendance: no Were meds taken: Yes; Nystatin refused, pt states she doesn't like the powder and would like the cream again, ordered Any med S/E: None noted or reported Mental Status Exam: Appearance: Showered today Eye contact: direct Behavior: cooperative, calm Speech: soft, somewhat slowed Mood: "better" Affect: restricted with brightening Thought process: linear Thought Content: no delusional thought content present Insight: Poor Judgment: Poor Interventions: PRN's used: None Therapeutic interventions: 1:1 therapeutic conversation with RN that included active listening and positive reinforcement, q15" safety checks. Restraints/seclusion/emergency medication: None Justification of Continued Inpatient Treatment: Pt is conserved and is pending placement, she continues to need med adjustments due to continued s/s of depression. Continued therapeutic support and medication management needed to provide stabilization, prevent decompensation, decreasing risk to patient and readmittance.
[2018-11-24 19:00] VITALS: BP 128/79
[2018-11-24] MEDS: acetaminophen 325mg tablet PO PRN (19:11)
[2018-11-24] MEDS: NYSTATIN CREAM - 30GM TUBE TP SCH (20:57)
--- NOTE | 2018-11-25 00:07 | NUR ---
RN PROGRESS NOTE: Chief Complaint: Grave disability, MDD, schizophrenia. Legal hold: LPS Conserved Report received from: Agnieszka PORTILLO Why are they here: This is a patient from [facility] that was placed on 5150 for grave disability due to not showering for a week. She states that it's too hard and the water mai her. Diagnosis/presenting symptoms: Major Depressive Disorder, Schizophrenia, hopeless, helpless, Anhedonia, isolative. Assessment: What has happened this shift: Pt was laying in bed at change of shift, reports not feeling well, and has JESSICA. Gave pt prn Tylenol and pt reports this helps. Pt appears fatigued, w/general malaise tonight. She sat up in a chair for a short time and returned to bed. She states she didn't take a shower because she wasn't feeling good today. S/I, H/I: Denies A/VH: Denies Sleep: patient reports sleeping well ADL's: Independent, but needs prompts and reminders Group attendance: no Were meds taken: Yes Any med S/E: None noted or reported Mental Status Exam: Appearance: Pt is wearing soiled clothing at change of shift and is malodorous. Asked pt if I could do laundry for her and encouraged pt to change and she declined to do so. Pt states she didnt shower today because she wasn't feeling well. Acknowledged pts shower contract and encouraged her to add an extra day possibly tomorrow. Eye contact: fair Behavior: resistive, calm Speech: soft, somewhat slowed Mood: despondent, downcast Affect: constricted Thought process: linear Thought Content: unable to assess pt is fatiqued Insight: Poor Judgment: Poor Interventions: PRN's used: None Therapeutic interventions: 1:1 assessment, q15 safety checks. Restraints/seclusion/emergency medication: None Justification of Continued Inpatient Treatment: Pt is conserved and is pending placement, she continues to need med adjustments due to continued s/s of depression. Continued therapeutic support and medication management needed to provide stabilization, prevent decompensation, decreasing risk to patient and readmittance.
[2018-11-25 07:45] VITALS: BP 132/81
[2018-11-25] MEDS: carvedilol 6.25mg tablet PO SCH ×2 (08:19→20:07)
[2018-11-25] MEDS: atorvastatin 10mg tablet PO SCH (08:19)
[2018-11-25] MEDS: loratadine 10mg tablet PO SCH (08:19)
[2018-11-25] MEDS: potassium chloride 10mEq ER tablet PO SCH (08:19)
[2018-11-25] MEDS: buPROPion SR 150mg tablet PO SCH ×3 (08:19→20:07)
[2018-11-25] MEDS: amLODIPine 5mg tablet PO SCH (08:19)
[2018-11-25] MEDS: venlafaxine XR 75mg capsule (Q24H) PO SCH (08:19)
[2018-11-25] MEDS: topiramate 100mg tablet PO SCH ×2 (08:19→20:07)
[2018-11-25] MEDS: NYSTATIN CREAM - 30GM TUBE TP SCH ×2 (08:20→20:08)
[2018-11-25] MEDS: losartan 25mg tablet PO SCH (08:20)
[2018-11-25] MEDS: nicotine 21mg patch - 24 hr TD SCH (08:26)
--- NOTE | 2018-11-25 13:33 | NUR ---
RN PROGRESS NOTE: Chief Complaint: Grave disability, MDD, schizophrenia. Legal hold: LPS Conserved Report received from: Drocas PORTILLO Why are they here: This is a patient from [facility] that was placed on 5150 for grave disability due to not showering for a week. She states that it's too hard and the water mai her. Diagnosis/presenting symptoms: Major Depressive Disorder, Schizophrenia, hopeless, helpless, Anhedonia, isolative. Assessment: What has happened this shift: Pt up for breakfast, initially refused nicotine patch as she stated she was going to shower today since she didn't shower yesterday. When reapproached about showering later, pt stated, "I washed up." Agrees to resume shower schedule tomorrow. Pt rated depression today at a 5/10, denies SI. Pt states she doesn't like the Nystatin powder for redness in her groin, pannus and breast folds because she believes it dries out her skin and causes skin flakes to fall off, continue Nystatin cream to red skin folds. Pt denied any cold symptoms today, no cough noted, lungs clear, afebrile. S/I, H/I: Pt denies A/VH: Pt denies Sleep: No sleep issues, naps at times during the day ADL's: Independent, but needs prompts and reminders Group attendance: Refused to attend am group Were meds taken: Yes Any med S/E: None noted or reported Mental Status Exam: Appearance: Dirty clothes, greasy hair with dandruff flakes Eye contact: fair Behavior: calm, quiet, withdrawn Speech: clear, soft Mood: Depressed Affect: Flat, depressed, restricted Thought process: linear Thought Content: somewhat avoidant, answered questions but did not express thoughts, seems to focus on how to avoid showers at times Insight: Poor Judgment: Poor Interventions: PRN's used: None Therapeutic interventions: 1:1 assessment, medication administration, encouragement to participate in ADLS/personal hygiene. Restraints/seclusion/emergency medication: None Justification of Continued Inpatient Treatment: Pt is conserved and is pending placement, continue therapeutic support and medication management to provide stabilization, prevent decompensation, decreasing risk to patient and readmittance.
[2018-11-25 19:00] VITALS: BP 117/75
--- NOTE | 2018-11-25 21:29 | NUR ---
BANDAR PROGRESS NOTE: Chief Complaint: Grave disability, MDD, schizophrenia. Legal hold: LPS Conserved Report received from: Demetrius PORTILLO Why are they here: This is a patient from [facility] that was placed on 5150 for grave disability due to not showering for a week. She states that it's too hard and the water mai her. Diagnosis/presenting symptoms: Major Depressive Disorder, Schizophrenia, hopeless, helpless, Anhedonia, isolative. Assessment: What has happened this shift: Pt was sitting in the jones at change of shift 1:1 assessment completed at bedside. Pt reports her depression is 4/10, states her day was "better" and denies s/i. Pt reports washing up today and hygeine is somewhat improved from yesterday. She states she will take her shower tomorrow and educated pt on rinsing her hair well in the shower when she does showers. Washed pts hair tonight w/a shower cap hair wash. Applied pts nystatin cream but rash appears more red this evening than last night. Pt did change her clothing today and Clothing is being laundered this evening, was encouraged to change clothing before bed and pt didnt change. Pt reports she is slept "good" and appetite is "Ok". Pt is med compliant, observed q15 min for safety. S/I, H/I: Pt denies A/VH: Pt denies Sleep: Pt reports sleeping good ADL's: Independent, but needs prompts and reminders Group attendance: no evening groups Were meds taken: Yes Any med S/E: None noted or reported Mental Status Exam: Appearance: Dirty clothes, greasy hair w/dandruff flakes Eye contact: good Behavior: cooperative , withdrawn Speech: clear, soft Mood: Depressed Affect: Flat, depressed, restricted Thought process: linear Thought Content: pt gives brief answers to questions but doesn't add to conversation Insight: Poor Judgment: Poor Interventions: PRN's used: None Therapeutic interventions: 1:1 assessment, medication administration, encouraged showering Restraints/seclusion/emergency medication: None Justification of Continued Inpatient Treatment: Pt is conserved and is pending placement, continue therapeutic support and medication management to provide stabilization, prevent decompensation, decreasing risk to patient and readmittance. Addendum: 11/26/18 at 0302 by Carolina Haile RN PT WOKE AND SAT IN THE JONES CHAIR VARIOUS TIMES DURING THE EVENING. ASKED PT IF SHE WOULD LIKE TO SHOWER EARLY IN THE MORNING AND PT DECLINED.
[2018-11-26 08:00] VITALS: BP 134/81
[2018-11-26] MEDS: NYSTATIN CREAM - 30GM TUBE TP SCH ×3 (08:00→20:00)
[2018-11-26] MEDS: nicotine 21mg patch - 24 hr TD SCH ×2 (08:00→08:04)
[2018-11-26] MEDS: venlafaxine XR 75mg capsule (Q24H) PO SCH (08:03)
[2018-11-26] MEDS: carvedilol 6.25mg tablet PO SCH ×2 (08:03→20:47)
[2018-11-26] MEDS: atorvastatin 10mg tablet PO SCH (08:03)
[2018-11-26] MEDS: loratadine 10mg tablet PO SCH (08:03)
[2018-11-26] MEDS: amLODIPine 5mg tablet PO SCH (08:03)
[2018-11-26] MEDS: topiramate 100mg tablet PO SCH ×2 (08:03→20:47)
[2018-11-26] MEDS: losartan 25mg tablet PO SCH (08:03)
[2018-11-26] MEDS: potassium chloride 10mEq ER tablet PO SCH (08:03)
[2018-11-26] MEDS: buPROPion SR 150mg tablet PO SCH ×3 (08:03→20:47)
[2018-11-26] MEDS: naproxen 500mg tablet PO PRN (15:32)
--- NOTE | 2018-11-26 16:17 | NUR ---
RN PROGRESS NOTE: Chief Complaint: Grave disability, MDD, schizophrenia. Legal hold: LPS Conserved Report received from: Dorcas PORTILLO Why are they here: This is a patient from [facility] that was placed on 5150 for grave disability due to not showering for a week. She states that it's too hard and the water mai her. Diagnosis/presenting symptoms: Major Depressive Disorder recurrent severe w/o psychotic symptoms, Schizophrenia, hopeless, helpless, Anhedonia, isolative, resistant to showers/personal hygiene. Assessment: What has happened this shift: Pt rated depression this am at a 410, denied SI and all other symptoms, discussed plans for shower today after breakfast, pt stated "later." Reapproached pt a couple hours later, pt again refused, stating, "later" once again. Reminded pt of treatment plan/ shower schedule also stressed importance of cleansing skin folds with soap and water as pt's rash has not been improving, encouraged pt to shower before lunchtime. Reapproached pt before lunch, pt stated, "after lunch." After lunch went to pt's room to say it was time for her shower, she again replied, "later." Explained to pt that it was really a good time to shower, before the next group started and that we were beginning to run out of time on this shift, pt replied, "it's only 1:30." Stressed importance of washing and applying Nystatin cream to cleansed skin, pt adamantly refused. Pt c/o headache pain 05/03 at 1532, requested ibuprofen, medicated with naprosyn 500 mg. JERICHO Almanza provided pt with a pair of headphones to listen to classical music after afternoon group. Will continue to offer/encourage shower, cleansing of skin folds and cream application. S/I, H/I: Pt denies A/VH: Pt denies Sleep: Didn't sleep well per noc shift report, when asked pt if there was any reason she couldn't sleep, did she have something on her mind? She replied, "I don't know, I just couldn't sleep." ADL's: Resistive to showers/personal hygiene despite much encouragement Group attendance: Refused to attend am group Were meds taken: Yes Any med S/E: None noted or reported Mental Status Exam: Appearance: Disheveled Eye contact: good Behavior: isolative to self, constricted, resistive to showering/personal hygiene Speech: clear, soft Mood: Depressed Affect: Flat, depressed, restricted Thought process: linear Thought Content: Not wanting to shower Insight: Poor Judgment: Poor Interventions: PRN's used: Naprosyn 500 mg Therapeutic interventions: 1:1 assessment, medication administration, encouragement to participate in ADLS/personal hygiene, Q 15 minute checks, relaxation techniques. Restraints/seclusion/emergency medication: None Justification of Continued Inpatient Treatment: Pt continues to have poor judgement and insight, is not motivated for personal care, needs much encouragement for ADLs, showers, and hygiene. Pt is conserved and is pending placement, continue therapeutic support and medication management to provide stabilization, prevent decompensation, decreasing risk to patient and readmittance.
[2018-11-26 19:00] VITALS: BP 151/84
--- NOTE | 2018-11-27 04:53 | NUR ---
RN Progress Note What happened this shift? Pt was asleep in bed. Pt still has not taken a shower. Offered nystatin cream for her rash but refused and requested to have it put it on tomorrow instead. Pt stated that she was feeling okay and did not participate in any group activities today. Pt stated that she was feeling tired and just stayed in her room most of the day. Denies SI. Mood: depressed Affect: flat Thought: did not want nystatin cream Behavior: calm, quiet PRNs: none
[2018-11-27 07:00] VITALS: BP 130/63
[2018-11-27] MEDS: topiramate 100mg tablet PO SCH ×2 (07:41→19:43)
[2018-11-27] MEDS: atorvastatin 10mg tablet PO SCH (07:41)
[2018-11-27] MEDS: losartan 25mg tablet PO SCH (07:41)
[2018-11-27] MEDS: loratadine 10mg tablet PO SCH (07:41)
[2018-11-27] MEDS: buPROPion SR 150mg tablet PO SCH ×3 (07:41→19:44)
[2018-11-27] MEDS: potassium chloride 10mEq ER tablet PO SCH (07:41)
[2018-11-27] MEDS: venlafaxine XR 75mg capsule (Q24H) PO SCH (07:42)
[2018-11-27] MEDS: carvedilol 6.25mg tablet PO SCH ×2 (07:43→19:43)
[2018-11-27] MEDS: amLODIPine 5mg tablet PO SCH (07:43)
[2018-11-27] MEDS: nicotine 21mg patch - 24 hr TD SCH (07:44)
[2018-11-27] MEDS: NYSTATIN CREAM - 30GM TUBE TP SCH ×2 (08:00→19:44)
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
[2018-11-27 19:52] VITALS: BP 123/60
--- NOTE | 2018-11-28 00:30 | NUR ---
RN Progress Note: Chief Complaint: Grave disability, MDD, schizophrenia. Legal hold: LPS Conserved Report received from: BANDAR Ann with use of SBAR Why are they here: This is a conserved patient from [facility] placed on 5150 for GD due to not showering for a week. She states that it's too hard and the water mai her. Diagnosis/presenting symptoms: Major Depressive Disorder, Schizophrenia, hopeless, helpless, Anhedonia, isolative. Assessment: What has happened this shift: Pt slept most of the shift but got up to sit in the chair in the hallway a couple of times in the night. Pt does not engage in conversation, answers questions with a yes or no response, and has poor eye contact. Pt continues to require prompting to shower. Pt refused nystatin cream. S/I, H/I: Denies A/VH: Denies; pt has a long history of schizophrenia Sleep: Gets up to sit in chair in hallway a few times a night ADL's: does not get in the water takes sponge bath, needs prompting Group attendance: Yes Were meds taken: Yes Any med S/E: None noted or reported Mental Status Exam: Appearance: Disheveled Eye contact: Poor Behavior: cooperative, withdrawn Speech: clear, soft, limited Mood: Depressed Affect: Flat, restricted Thought process: Unable to determine Thought Content: pt only answers yes and no Insight: Poor Judgment: Poor Interventions: PRN's used: None Therapeutic interventions: 1:1 assessment at bedside with medication administration; medication education; monitored medications for SEs; encouraged showers; monitored q15min safety checks. Restraints/seclusion/emergency medication: N/A Justification of Continued Inpatient Treatment: Pt is conserved and is pending placement, continue therapeutic support in hygiene and medication management to provide stabilization, prevent decompensation, decreasing risk to patient and readmittance.
[2018-11-28 08:00] VITALS: BP 166/87
[2018-11-28] MEDS: venlafaxine XR 75mg capsule (Q24H) PO SCH (08:32)
[2018-11-28] MEDS: topiramate 100mg tablet PO SCH ×2 (08:32→19:32)
[2018-11-28] MEDS: potassium chloride 10mEq ER tablet PO SCH (08:32)
[2018-11-28] MEDS: losartan 25mg tablet PO SCH (08:32)
[2018-11-28] MEDS: carvedilol 6.25mg tablet PO SCH ×2 (08:32→19:31)
[2018-11-28] MEDS: amLODIPine 5mg tablet PO SCH (08:32)
[2018-11-28] MEDS: loratadine 10mg tablet PO SCH (08:32)
[2018-11-28] MEDS: buPROPion SR 150mg tablet PO SCH ×3 (08:32→19:33)
[2018-11-28] MEDS: atorvastatin 10mg tablet PO SCH (08:32)
[2018-11-28] MEDS: nicotine 21mg patch - 24 hr TD SCH (08:33)
[2018-11-28] MEDS: NYSTATIN CREAM - 30GM TUBE TP SCH ×2 (08:55→19:33)
[2018-11-28 13:30] VITALS: BP 117/72
--- NOTE | 2018-11-28 14:28 | NUR ---
1:1 DISCHARGE PLANNING JERICHO emailed Allan at [facility] regarding patient placement and potential updates. JERICHO will continue to attempt to contact regarding updates and status. HERMINIO Leon Addendum: 11/28/18 at 1447 by Agnieszka Kapoor UPDATED INFORMATION: JERICHO informed by Allan at [facility] that she has not had a chance to look at placement information is unable to provide an update. Allan agreed to contact this junior technical writer on 11/29/2018 in the morning to provide update. HERMINIO Leon
--- NOTE | 2018-11-28 15:59 | NUR ---
Nursing Progress Note: Chief Complaint: Pt depressed and refused to shower at her board and halfway. Legal hold: [facility] conservatorship Client status is GD, [facility] conservatorship Report received from BANDAR Hughes with use of SBAR. Why are they here: Severe depression leading to decompensation in ADL performance. Pt refused to shower at her board and halfway, pt smelled of urine, and [facility] gave her 30-day notice. She is unable formulate a plan for food, clothing, and group home. Diagnosis/presenting symptoms: Major depressive disorder, Schizophrenia. Symptoms include depression, anhedonia, isolation, impaired skin integrity. Assessment What has happened this shift: Pt was sleeping at change of shift. Pt cooperated with assessment. She said she was a little depressed, but denied anxiety Kathy/V H. Poor eye contact. Pt refused wound care under her breasts. Pt isolated to her room for much of the day. She sits on the side of her bed for long periods of time without doing anything. Encouraged pt to socialize. She goes to the group room for meals. She did not attend groups today. S/I, H/I: denies A/VH: denies Sleep: napped ADL's: with prompting Group attendance: no Were meds taken: yes Any med S/E: none noted Mental Status Exam Appearance: disheveled, unshowered Eye contact: indirect, with moments of eye contact maintained Behavior: withdrawn, isolates Speech: Minimal speech, answers questions appropriately Mood: depressed Affect: bland Thought process: linear and connected Thought Content: difficult to determine thought content due to pt's minimal speech Cognition: A&Ox4 Insight: fair Judgment: fair Interventions PRN's used: None Therapeutic interventions: Established therapeutic relationship, active listening, offered 1:1 support allowing pt to express feelings and thoughts, educated and administered medications as ordered while monitoring for side effects, maintained Q15 min safety checks, Restraints/seclusion/emergency medication: None Justification of Continued Inpatient Treatment: Pt has severe depression inhibiting her ability to perform basic activities of daily living. She is unable to verbalize a plan for food, clothing, and group home.
[2018-11-28 20:00] VITALS: BP 137/65
--- NOTE | 2018-11-28 23:57 | NUR ---
RN Progress Note: Chief Complaint: Grave disability, MDD, schizophrenia. Legal hold: LPS Conserved Report received from: BANDAR Monsalve with use of SBAR Why are they here: This is a conserved patient from [facility] placed on 5150 for GD due to not showering for a week. She states that it's too hard and the water mai her. Diagnosis/presenting symptoms: Major Depressive Disorder, Schizophrenia, hopeless, helpless, Anhedonia, isolative. Assessment: What has happened this shift: Pt crying in bed listening to music on headphones when RN entered room for 1:1 assessment. Pt did not wish to discuss why she was crying and stated "it doesn't matter." RN attempted to probe further but pt refused to engage. Pt confirmed the music made her feel better. Pt continues to refuse Nystatin powder; did not have sponge bath today and was resistant to the idea of attempting a shower in the morning when suggested by the RN. Went to the cafeteria room for snack and to listen to music via headphone before going to sleep. S/I, H/I: Denies A/VH: Denies; pt has a long history of schizophrenia Sleep: Gets up to sit in chair in hallway a few times a night ADL's: does not get in the water takes sponge bath, needs prompting Group attendance: Yes Were meds taken: Yes Any med S/E: None noted or reported Mental Status Exam: Appearance: Disheveled Eye contact: Poor Behavior: cooperative, withdrawn Speech: clear, soft, limited Mood: Depressed Affect: Flat, restricted Thought process: Unable to determine Thought Content: pt only answers yes and no- at most 3 word responses Insight: Poor Judgment: Poor Interventions: PRN's used: None Therapeutic interventions: 1:1 assessment at bedside with medication administration; medication education; monitored medications for SEs; encouraged showers and nystatin use; monitored q15min safety checks. Restraints/seclusion/emergency medication: N/A Justification of Continued Inpatient Treatment: Pt is conserved and is pending placement--[facility] office to call in the morning to update SW, continue therapeutic support in hygiene and medication management to provide stabilization, prevent decompensation, decreasing risk to patient and readmittance.
[2018-11-29 07:57] VITALS: BP 136/79
[2018-11-29] MEDS: NYSTATIN CREAM - 30GM TUBE TP SCH ×3 (08:00→21:19)
[2018-11-29] MEDS: nicotine 21mg patch - 24 hr TD SCH (08:17)
[2018-11-29] MEDS: loratadine 10mg tablet PO SCH (08:17)
[2018-11-29] MEDS: carvedilol 6.25mg tablet PO SCH ×2 (08:17→21:19)
[2018-11-29] MEDS: buPROPion SR 150mg tablet PO SCH ×3 (08:17→21:19)
[2018-11-29] MEDS: atorvastatin 10mg tablet PO SCH (08:18)
[2018-11-29] MEDS: potassium chloride 10mEq ER tablet PO SCH (08:18)
[2018-11-29] MEDS: venlafaxine XR 75mg capsule (Q24H) PO SCH (08:18)
[2018-11-29] MEDS: amLODIPine 5mg tablet PO SCH (08:18)
[2018-11-29] MEDS: topiramate 100mg tablet PO SCH ×2 (08:18→21:19)
--- NOTE | 2018-11-29 08:40 | NUR ---
1:1 DISCHARGE PLANNING 08:31 hours JERICHO made TC to Bibiana at [facility] [phone] to learn of patient placement progress. JERICHO left message requesting a return contact. HERMINIO Leon Addendum: 11/29/18 at 1044 by Agnieszka Kapoor SS 10:35 hours JERICHO made TC to Allan at [facility] [phone], who initially reported she did not receive placement packet for patient. JERICHO informed Allan of fax date and time, then Allan confirmed placement packet had been received on 11/24/2018 at 15:32 hours. Allan reports placement request has been sent to several contracted placement facilities. HERMINIO Leon
[2018-11-29] MEDS: losartan 25mg tablet PO SCH (09:54)
--- NOTE | 2018-11-29 17:07 | NUR ---
PROGRESS NOTE: Chief Complaint: Grave disability, MDD, schizophrenia. Legal hold: LPS Conserved Report received from BANDAR Guardado. Why are they here: This is a patient from [facility] that was place on 5150 for grave disability due to not showering for a week. She states that it's too hard and the water mai her. Diagnosis/presenting symptoms: Major Depressive Disorder, Schizophrenia, hopeless, helpless, Anhedonia, isolative. Assessment: What has happened this shift: At change of shift patient was at nursing office door asking for the radio headphones so she could listen to music. She was found on her bed lying prone with headphones listening to music, stating, "I like the music." The issue for her today was taking a shower. She was informed that she must take a shower. She was very resistant wanting only to wash her hair and not disrobe or get her body wet. She was helped by 2 staff members to completely bathe which was in fact accomplished. She has a very bad rash under breasts and groin area. Nystatin cream was applied. Depressed mood and flat affect. Med compliant. S/I, H/I: Denies A/VH: denies Sleep: napped ADL's: Self, but needs help with shower Group attendance: None Were meds taken: Yes. Any med S/E: None noted or reported Mental Status Exam: Appearance: disheveled Eye contact: poor Behavior: Isolative to self/room, quiet Speech: Slow, quiet. Mood: Depressed Affect:Flat Thought process: unable to assess Thought Content: Pt does not express her thoughts. Cognition: A/O x4 Insight: poor Judgment: Poor Interventions: PRN's used: None Therapeutic interventions: 1:1 assessment, encouragement in personal hygiene/ADLs,medication administration & monitoring,Q 15 minute checks. Restraints/seclusion/emergency medication: None Justification of Continued Inpatient Treatment: Patient continues to need encouragement, supervision, and assistance to perform ADLs. Depression, anhedonia, isolation continues, pt is conserved and guardian does not wish for her to return to [place], seeking appropriate placement.
[2018-11-29 19:15] VITALS: BP 120/66
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
[2018-11-30 08:00] VITALS: BP 155/85
[2018-11-30] MEDS: carvedilol 6.25mg tablet PO SCH ×2 (08:20→22:00)
[2018-11-30] MEDS: venlafaxine XR 75mg capsule (Q24H) PO SCH (08:20)
[2018-11-30] MEDS: loratadine 10mg tablet PO SCH (08:20)
[2018-11-30] MEDS: amLODIPine 5mg tablet PO SCH (08:21)
[2018-11-30] MEDS: potassium chloride 10mEq ER tablet PO SCH (08:21)
[2018-11-30] MEDS: atorvastatin 10mg tablet PO SCH (08:21)
[2018-11-30] MEDS: buPROPion SR 150mg tablet PO SCH ×3 (08:22→22:00)
[2018-11-30] MEDS: nicotine 21mg patch - 24 hr TD SCH (08:24)
[2018-11-30] MEDS: topiramate 100mg tablet PO SCH ×2 (08:42→22:00)
[2018-11-30] MEDS: NYSTATIN CREAM - 30GM TUBE TP SCH ×2 (08:42→22:00)
[2018-11-30] MEDS: losartan 25mg tablet PO SCH (08:42)
--- NOTE | 2018-11-30 09:29 | NUR ---
Reassessment: Documented PO intake fluctuates with some refusals of meals with recent intake 50-75% likely meeting nutrient needs, however pt does report a low appetite per MD progress notes. Noted that pt is documented as fatigued and resistive to care in physical assessment. Pt waiting placement from [facility] per MD progress notes. LB 11/27. Will continue to follow. Recommendations: 1) Continue with regular diet 2) Monitor need for ONS 3) Weekly wt Addendum: 11/30/18 at [address] Amended: Links added.
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
[2018-11-30 19:39] VITALS: BP 138/101
[2018-11-30 20:00] VITALS: BP 130/85
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
[2018-12-01 08:00] VITALS: BP 113/78
[2018-12-01] MEDS: NYSTATIN CREAM - 30GM TUBE TP SCH ×2 (08:00→21:47)
[2018-12-01] MEDS: carvedilol 6.25mg tablet PO SCH ×2 (08:36→21:47)
[2018-12-01] MEDS: buPROPion SR 150mg tablet PO SCH ×3 (08:36→21:47)
[2018-12-01] MEDS: loratadine 10mg tablet PO SCH (08:36)
[2018-12-01] MEDS: atorvastatin 10mg tablet PO SCH (08:37)
[2018-12-01] MEDS: topiramate 100mg tablet PO SCH ×2 (08:37→21:47)
[2018-12-01] MEDS: amLODIPine 5mg tablet PO SCH (08:37)
[2018-12-01] MEDS: potassium chloride 10mEq ER tablet PO SCH (08:37)
[2018-12-01] MEDS: losartan 25mg tablet PO SCH (08:37)
[2018-12-01] MEDS: venlafaxine XR 75mg capsule (Q24H) PO SCH (08:38)
[2018-12-01] MEDS: nicotine 21mg patch - 24 hr TD SCH (08:43)
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
[2018-12-01 19:00] VITALS: BP 120/85
[2018-12-01] MEDS ORDERED: hydrOXYzine 25 MG tablet PO PRN (22:25)
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
[2018-12-02 07:48] VITALS: BP 129/70
[2018-12-02] MEDS: NYSTATIN CREAM - 30GM TUBE TP SCH ×2 (08:00→21:02)
[2018-12-02] MEDS: carvedilol 6.25mg tablet PO SCH ×2 (08:09→21:03)
[2018-12-02] MEDS: topiramate 100mg tablet PO SCH ×2 (08:09→21:02)
[2018-12-02] MEDS: losartan 25mg tablet PO SCH (08:09)
[2018-12-02] MEDS: atorvastatin 10mg tablet PO SCH (08:09)
[2018-12-02] MEDS: buPROPion SR 150mg tablet PO SCH ×3 (08:09→21:02)
[2018-12-02] MEDS: potassium chloride 10mEq ER tablet PO SCH (08:09)
[2018-12-02] MEDS: venlafaxine XR 75mg capsule (Q24H) PO SCH (08:09)
[2018-12-02] MEDS: loratadine 10mg tablet PO SCH (08:09)
[2018-12-02] MEDS: amLODIPine 5mg tablet PO SCH (08:13)
[2018-12-02] MEDS: nicotine 21mg patch - 24 hr TD SCH (11:20)
--- NOTE | 2018-12-02 12:26 | NUR ---
1:1 DISCHARGE PLANNING SW [facility]. SW returned contact at 12:25 and provided information regarding pt's interest in wireless headphones that play the radio. JERICHO requested a return contact. HERMINIO Leon
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
[2018-12-02 19:29] VITALS: BP 139/81
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
[2018-12-03 08:00] VITALS: BP 110/76
[2018-12-03] MEDS: NYSTATIN CREAM - 30GM TUBE TP SCH ×2 (08:00→20:00)
[2018-12-03] MEDS ORDERED: fentaNYL/PF 50MCG/1 ML 2ML syringe ONE ×2 (08:04→08:28)
[2018-12-03] MEDS ORDERED: ondansetron/PF 4mg/2ml inj ONE (08:19)
[2018-12-03] MEDS ORDERED: propofol inj 20 ML IV ONE (08:19)
[2018-12-03] MEDS ORDERED: LIDOcaine 1%/PF 5ML 10 MG/ML VIAL ONE (08:19)
[2018-12-03] MEDS: topiramate 100mg tablet PO SCH ×2 (08:23→20:43)
[2018-12-03] MEDS: amLODIPine 5mg tablet PO SCH (08:23)
[2018-12-03] MEDS: potassium chloride 10mEq ER tablet PO SCH (08:23)
[2018-12-03] MEDS: loratadine 10mg tablet PO SCH (08:23)
[2018-12-03] MEDS: losartan 25mg tablet PO SCH (08:23)
[2018-12-03] MEDS: carvedilol 6.25mg tablet PO SCH ×2 (08:24→20:43)
[2018-12-03] MEDS: venlafaxine XR 75mg capsule (Q24H) PO SCH (08:24)
[2018-12-03] MEDS: atorvastatin 10mg tablet PO SCH (08:24)
[2018-12-03] MEDS: buPROPion SR 150mg tablet PO SCH ×3 (08:24→20:43)
[2018-12-03] MEDS: nicotine 21mg patch - 24 hr TD SCH (14:00)
--- NOTE | 2018-12-03 18:03 | NUR ---
RN Progress Note: Chief Complaint: Grave disability, MDD, schizophrenia. Legal hold: LPS Conserved Report received from: BANDAR Monsalve with use of SBAR Why are they here: This is a conserved patient from [facility] placed on 5150 for GD due to not showering for a week. She states that it's too hard and the water mai her. Diagnosis/presenting symptoms: Major Depressive Disorder, Schizophrenia, hopeless, helpless, Anhedonia, isolative. Assessment: What has happened this shift: Patient is met in the group room at shift change. She stays until after breakfast and enjoys the music being played. She is observed by staff members smiling and nodding her head. She requests to have her nicotine patch applied after she showers. She takes all her medications without issues. She reports that she slept well the night before. Report received that hospitalist attempted to assess patients rash under breasts and panis-perennial area. Patient refused. Patient was observed in her room after lunch listening to music on the headphones. She states that she does not want to shower but agrees to allow this RN to clean areas with rash and apply powder. All areas cleaned and powder applied. Rash is reddened with areas of peeling skin, patient denies pain and reports that it itches. When finished, patient stated thank you. Patient is encouraged to attend group but declines to do so. She kindly returns headphones during group time. She is observed in other areas throughout the day, sitting in grewal and watching movies with others. She again is seen wearing the headphones laughing and smiling while listening to music. S/I, H/I: Denies A/VH: Denies Sleep: slept 6.75 hrs noc, did not nap during the day ADL's: refused shower, cleaned under breasts and panis area, applied powder Group attendance: yes Were meds taken: Yes Any med S/E: None noted or reported Mental Status Exam: Appearance: Disheveled Eye contact: occasional Behavior: cooperative, mildly friendly Speech: clear, soft, limited Mood: better today than during past shifts Affect: restricted, flat to brightening Thought process: Unable to determine Thought Content: patient is not conversational, unable to formally assess Insight: Poor to fair Judgment: Poor to fair Interventions: PRN's used: None Therapeutic interventions: 1:1 assessment at bedside, therapeutic conversation that included active listening with positive reinforcement, medication education; monitored medications for SEs; encouraged showers and nystatin use; monitored q15min safety checks. Restraints/seclusion/emergency medication: N/A Justification of Continued Inpatient Treatment: Pt is conserved and is pending placement--[facility] office to call in the morning to update SW, continue therapeutic support in hygiene and medication management to provide stabilization, prevent decompensation, decreasing risk to patient and readmittance.
[2018-12-03 20:00] VITALS: BP 126/76
--- NOTE | 2018-12-04 00:22 | NUR ---
RN PROGRESS NOTE: Chief Complaint: Grave disability, MDD, schizophrenia. Legal hold: LPS Conserved Report received from BANDAR Aaron. Why are they here: This is a patient from [facility] that was place on 5150 for grave disability due to not showering for a week. She states that it's too hard and the water mai her. Diagnosis/presenting symptoms: Major Depressive Disorder, Schizophrenia, hopeless, helpless, Anhedonia, isolative. Assessment: What has happened this shift: The patient was on her bed listening to headphones at shift change. She was unwilling to answer questions, but did state that she's doing better. She would not explain what is better. She spent the whole evening in her room listening to music, with about 15 minutes sitting in a chair outside the rec room. She then went to bed. S/I, H/I: Denies A/VH: Denies Sleep: On and off throughout the day and night. ADL's: Self, but needs encouragement. Group attendance: No groups tonight. Were meds taken: Yes. Any med S/E: None noted or reported Mental Status Exam: Appearance: Unkept, greasy hair with flakes, malodorous Eye contact: Does not look at me. Behavior: Isolative to self/room, quiet, cooperative. Speech: Slow, quiet. Mood: Depressed Affect: Flat Thought process: Organized, linear Thought Content: Pt does not express her thoughts. Cognition: A/O x4 Insight: Fair Judgment: Poor Interventions: PRN's used: None Therapeutic interventions: 1:1 assessment, encouragement in personal hygiene/ADLs,medication administration & monitoring,Q 15 minute checks. Restraints/seclusion/emergency medication: None Justification of Continued Inpatient Treatment: Patient continues to need encouragement, supervision, and assistance to perform ADLs. Depression, anhedonia, isolation continues, pt is conserved and guardian does not wish for her to return to [place], seeking appropriate placement.
[2018-12-04 07:14] VITALS: BP 114/70
[2018-12-04] MEDS: potassium chloride 10mEq ER tablet PO SCH (07:56)
[2018-12-04] MEDS: amLODIPine 5mg tablet PO SCH (07:56)
[2018-12-04] MEDS: atorvastatin 10mg tablet PO SCH (07:56)
[2018-12-04] MEDS: carvedilol 6.25mg tablet PO SCH ×2 (07:56→20:17)
[2018-12-04] MEDS: venlafaxine XR 75mg capsule (Q24H) PO SCH (07:56)
[2018-12-04] MEDS: losartan 25mg tablet PO SCH (07:56)
[2018-12-04] MEDS: buPROPion SR 150mg tablet PO SCH ×3 (07:57→20:17)
[2018-12-04] MEDS: loratadine 10mg tablet PO SCH (07:57)
[2018-12-04] MEDS: topiramate 100mg tablet PO SCH ×2 (07:57→20:17)
[2018-12-04] MEDS: nicotine 21mg patch - 24 hr TD SCH (08:00)
[2018-12-04] MEDS: NYSTATIN CREAM - 30GM TUBE TP SCH ×2 (08:00→20:00)
[2018-12-04] MEDS: acetaminophen 325mg tablet PO PRN (10:43)
--- NOTE | 2018-12-04 14:33 | NUR ---
Reassessment: Pt PO 100% regular diet meeting needs. LBM 12/02. No nutrition concerns at this time. Recommendations: 1) Continue with regular diet 2) weekly wt Addendum: 12/04/18 at [address] Amended: Links added.
--- NOTE | 2018-12-04 18:02 | NUR ---
RN Progress Note: Chief Complaint: Grave disability, MDD, schizophrenia. Legal hold: LPS Conserved Report received from: BANDAR Mo with use of SBAR Why are they here: This is a conserved patient from [facility] placed on 5150 for GD due to not showering for a week. She states that it's too hard and the water mai her. Diagnosis/presenting symptoms: Major Depressive Disorder, Schizophrenia, hopeless, helpless, Anhedonia, isolative. Assessment: What has happened this shift: Patient is observed sitting on the side of her bed listening to headphones at shift change. Her face is softened with a little smile. She states that she is doing well this morning and slept well last night. She takes all her medications but requests to wait to shower before putting on the nicotine patch. When asked how she is doing she states ok. Lab attempted to do a blood draw and patient refused with 3 different approaches tried. Patient states I refuse. I dont want it. I dont need it. She goes to the group room for breakfast and then returns to her room. Patient c/o right ear pain and rates it a 7/10 on pain scale. She states that her other ear is beginning to hurt as well. RN provided education r/t ways to ease ear discomfort like a warm shower (pt declined) or applying a warm wash rag to ear and laying on that side (pt declined). Patient stated she would like some Tylenol, RN administered. Patient is observed smiling and occasionally laughing with others today. Patient refused nystatin treatment. S/I, H/I: Denies A/VH: Denies Sleep: states she slept ok, rested periodically during the day ADL's: refused shower, cleaned under breasts and panis area, applied powder Group attendance: n/a Were meds taken: Yes Any med S/E: None noted or reported Mental Status Exam: Appearance: Disheveled Eye contact: occasional Behavior: cooperative, friendly Speech: clear, soft, answers questions but does not elaborate Mood: better today than during past shifts Affect: restricted, flat to brightening Thought process: Unable to determine Thought Content: patient is not conversational, unable to formally assess Insight: Poor to fair Judgment: Poor to fair Interventions: PRN's used: None Therapeutic interventions: 1:1 assessment at bedside, therapeutic conversation that included active listening with positive reinforcement, medication education; monitored medications for SEs; encouraged showers and nystatin use; monitored q15min safety checks. Restraints/seclusion/emergency medication: N/A Justification of Continued Inpatient Treatment: Pt is conserved and is pending placement--TAD office to call in the morning to update SW, continue therapeutic support in hygiene and medication management to provide stabilization, prevent decompensation, decreasing risk to patient and readmittance.
[2018-12-04 20:00] VITALS: BP 100/50
--- NOTE | 2018-12-05 01:22 | NUR ---
RN PROGRESS NOTE: Chief Complaint: Grave disability, MDD, schizophrenia. Legal hold: LPS Conserved Report received from BANDAR Aaron. Why are they here: This is a patient from [facility] that was place on 5150 for grave disability due to not showering for a week. She states that it's too hard and the water mai her. Diagnosis/presenting symptoms: Major Depressive Disorder, Schizophrenia, hopeless, helpless, Anhedonia, isolative. Assessment: What has happened this shift: The patient was on the unit at shift change. She was sitting in a chair outside the nurses station. She asked for the headphones and listened for a while. When she listens to music, she appears calm and almost happy, smile sometimes. She doesn't use that word, but she changes when listening to music. She reports that she misses music, which she was able to listen to at former housing. She only says that she is better, but won't quantify what is better. She sat there until HS med pass, then went to bed. S/I, H/I: Denies A/VH: Denies Sleep: On and off throughout the day and night. ADL's: Self, but needs encouragement. Group attendance: No groups tonight. Were meds taken: Yes. Any med S/E: None noted or reported Mental Status Exam: Appearance: Obese female, unclean, but dressed appropriately. Eye contact: Fair. Behavior: Quiet, cooperative. Isolates to self. Speech: Slow, quiet. Mood: Depressed Affect: Flat Thought process: Organized, linear Thought Content: Pt does not express her thoughts. Cognition: A/O x4 Insight: Fair Judgment: Poor Interventions: PRN's used: None Therapeutic interventions: 1:1 assessment, encouragement in personal hygiene/ADLs,medication administration & monitoring,Q 15 minute checks. Restraints/seclusion/emergency medication: None Justification of Continued Inpatient Treatment: Patient continues to need encouragement, supervision, and assistance to perform ADLs. Depression, anhedonia, isolation continues, pt is conserved and guardian does not wish for her to return to [place], seeking appropriate placement.
[2018-12-05 08:00] VITALS: BP 127/89
[2018-12-05] MEDS: nicotine 21mg patch - 24 hr TD SCH (08:00)
[2018-12-05] MEDS: NYSTATIN CREAM - 30GM TUBE TP SCH ×2 (08:00→20:00)
[2018-12-05] MEDS: carbamide peroxide 15ml bottle EACH EAR SCH ×2 (08:00→20:23)
[2018-12-05] MEDS: buPROPion SR 150mg tablet PO SCH ×3 (08:06→20:23)
[2018-12-05] MEDS: amLODIPine 5mg tablet PO SCH (08:06)
[2018-12-05] MEDS: loratadine 10mg tablet PO SCH (08:06)
[2018-12-05] MEDS: atorvastatin 10mg tablet PO SCH (08:06)
[2018-12-05] MEDS: venlafaxine XR 75mg capsule (Q24H) PO SCH (08:06)
[2018-12-05] MEDS: losartan 25mg tablet PO SCH (08:06)
[2018-12-05] MEDS: potassium chloride 10mEq ER tablet PO SCH (08:07)
[2018-12-05] MEDS: topiramate 100mg tablet PO SCH ×2 (08:07→20:23)
[2018-12-05] MEDS: carvedilol 6.25mg tablet PO SCH ×2 (08:07→20:23)
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
--- NOTE | 2018-12-05 17:57 | NUR ---
RN Progress Note: Chief Complaint: Grave disability, MDD, schizophrenia. Legal hold: LPS Conserved Report received from: BANDAR Mo with use of SBAR Why are they here: This is a conserved patient from [facility] placed on 5150 for GD due to not showering for a week. She states that it's too hard and the water mai her. Diagnosis/presenting symptoms: Major Depressive Disorder, Schizophrenia, hopeless, helpless, Anhedonia, isolative. Assessment: What has happened this shift: Patient is up sitting in the chair in the grewal. She states that she is doing ok. Her affect is flat. RN asked patient if she would like to use the headphones and patient states that she would. She shows this RN how to turn the headphones on and has a small corner smile. Patient takes her medications with out any issue and again reports that she would like to wait to have her nicotine patch applied until after her shower. Attempts made to schedule a shower time settled with roughly 1400. Ear drops not available to administer, RN contacted pharmacy. Patient eats with others in the group room and has no complaints regarding the food. Patient again refuses shower. S/I, H/I: Denies A/VH: Denies Sleep: states she slept ok, rested periodically during the day ADL's: refused shower Group attendance: no Were meds taken: Yes Any med S/E: None noted or reported Mental Status Exam: Appearance: Disheveled Eye contact: occasional Behavior: cooperative Speech: clear, soft, answers questions but does not elaborate Mood: fair Affect: restricted with occasional softening Thought process: Unable to determine Thought Content: patient is not conversational, unable to formally assess Insight: Poor to fair Judgment: Poor to fair Interventions: PRN's used: None Therapeutic interventions: 1:1 assessment at bedside, therapeutic conversation that included active listening with positive reinforcement, medication education; monitored medications for SEs; encouraged showers and nystatin use; monitored q15min safety checks. Restraints/seclusion/emergency medication: N/A Justification of Continued Inpatient Treatment: Pt is conserved and is pending placement--TAD office to call in the morning to update SW, continue therapeutic support in hygiene and medication management to provide stabilization, prevent decompensation, decreasing risk to patient and readmittance.
[2018-12-05 19:55] VITALS: BP 127/73
--- NOTE | 2018-12-05 23:05 | NUR ---
RN PROGRESS NOTE: Chief Complaint: Grave disability, MDD, schizophrenia. Legal hold: LPS Conserved Report received from BANDAR Aaron. Why are they here: This is a patient from [facility] that was place on 5150 for grave disability due to not showering for a week. She states that it's too hard and the water mai her. Diagnosis/presenting symptoms: Major Depressive Disorder, Schizophrenia, hopeless, helpless, Anhedonia, isolative. Assessment: What has happened this shift: The patient was found in her bed. She was sleeping, and declined to get up. The patient was offered use of headphones, but refused. Her ear drops were available and she accepted the drops in both ears. the patient didn't want any snacks and stayed in bed all evening. She declined Nystatin per her usual, but took other meds. She remains sleeping at this time. S/I, H/I: Denies A/VH: Denies Sleep: has been asleep all shift. ADL's: Self, but needs encouragement. Group attendance: No groups tonight. Were meds taken: Yes. Any med S/E: None noted or reported. Mental Status Exam: Appearance: Obese female, unclean, hair not brushed. Eye contact: Fair. Behavior: Quiet, cooperative. Isolates to self. Speech: Slow, quiet. Mood: Depressed Affect: Flat Thought process: Organized, linear Thought Content: Pt does not express her thoughts. Cognition: A/O x4 Insight: Fair Judgment: Poor Interventions: PRN's used: None Therapeutic interventions: 1:1 assessment, encouragement in personal hygiene/ADLs,medication administration & monitoring,Q 15 minute checks. Restraints/seclusion/emergency medication: None Justification of Continued Inpatient Treatment: Patient continues to need encouragement, supervision, and assistance to perform ADLs. Depression, anhedonia, isolation continues, pt is conserved and guardian does not wish for her to return to [place], seeking appropriate placement.
[2018-12-06 07:16] VITALS: BP 108/58
[2018-12-06] MEDS: carbamide peroxide 15ml bottle EACH EAR SCH ×2 (08:00→20:00)
[2018-12-06] MEDS: NYSTATIN CREAM - 30GM TUBE TP SCH ×2 (08:00→20:00)
[2018-12-06] MEDS: nicotine 21mg patch - 24 hr TD SCH (08:32)
[2018-12-06] MEDS: venlafaxine XR 75mg capsule (Q24H) PO SCH (08:33)
[2018-12-06] MEDS: potassium chloride 10mEq ER tablet PO SCH (08:33)
[2018-12-06] MEDS: atorvastatin 10mg tablet PO SCH (08:33)
[2018-12-06] MEDS: amLODIPine 5mg tablet PO SCH (08:33)
[2018-12-06] MEDS: losartan 25mg tablet PO SCH (08:33)
[2018-12-06] MEDS: carvedilol 6.25mg tablet PO SCH ×2 (08:34→20:58)
[2018-12-06] MEDS: topiramate 100mg tablet PO SCH ×2 (08:34→20:58)
[2018-12-06] MEDS: buPROPion SR 150mg tablet PO SCH ×3 (08:34→20:58)
[2018-12-06] MEDS: loratadine 10mg tablet PO SCH (08:34)
--- NOTE | 2018-12-06 16:05 | NUR ---
1:1 DISCHARGE PLANNING SW made TC to [facility] in [place] to learn if any open are available. JERICHO left message request placement of pt. JERICHO will update TAD and PG on 12/07/2018. HERMINIO Leon
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
[2018-12-06 19:00] VITALS: BP 118/62
[2018-12-06] MEDS: acetaminophen 325mg tablet PO PRN (20:59)
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
[2018-12-07 07:47] VITALS: BP 111/69
[2018-12-07 07:47] LABS: ALANINE AMINOTRANSFERASE 19 U/L (12-78); ALBUMIN 3.4 G/DL (3.4-5.0); ALKALINE PHOSPHATASE 118 IU/L (46-116); ANION GAP 11 (8-16); ASPARTATE AMINO TRANSFERASE 10 U/L (10-37); BILIRUBIN,TOTAL 0.2 MG/DL (0.1-1.0); BLOOD UREA NITROGEN 11 MG/DL (7-18); CALCIUM 8.8 MG/DL (8.5-10.1); CHLORIDE 108 MMOL/L (99-107); CREATININE 0.92 MG/DL (0.40-0.90); GLUCOSE 95 MG/DL (70-104); SODIUM 143 MMOL/L (135-145); TOTAL PROTEIN 6.8 G/DL (6.4-8.2); eGFR 62 ML/MIN
[2018-12-07] MEDS: venlafaxine XR 75mg capsule (Q24H) PO SCH (08:43)
[2018-12-07] MEDS: amLODIPine 5mg tablet PO SCH (08:43)
[2018-12-07] MEDS: buPROPion SR 150mg tablet PO SCH ×3 (08:44→20:56)
[2018-12-07] MEDS: loratadine 10mg tablet PO SCH (08:44)
[2018-12-07] MEDS: carvedilol 6.25mg tablet PO SCH ×2 (08:44→20:56)
[2018-12-07] MEDS: topiramate 100mg tablet PO SCH ×2 (08:44→20:56)
[2018-12-07] MEDS: losartan 25mg tablet PO SCH (08:45)
[2018-12-07] MEDS: atorvastatin 10mg tablet PO SCH (08:45)
[2018-12-07] MEDS: potassium chloride 10mEq ER tablet PO SCH (08:46)
[2018-12-07] MEDS: carbamide peroxide 15ml bottle EACH EAR SCH ×2 (08:47→20:56)
[2018-12-07] MEDS: NYSTATIN CREAM - 30GM TUBE TP SCH ×2 (08:49→20:56)
[2018-12-07] MEDS: nicotine 21mg patch - 24 hr TD SCH (08:49)
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
[2018-12-07 20:00] VITALS: BP 116/65
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
[2018-12-08 07:38] VITALS: BP 136/61
[2018-12-08] MEDS: loratadine 10mg tablet PO SCH (08:09)
[2018-12-08] MEDS: atorvastatin 10mg tablet PO SCH (08:09)
[2018-12-08] MEDS: venlafaxine XR 75mg capsule (Q24H) PO SCH (08:09)
[2018-12-08] MEDS: topiramate 100mg tablet PO SCH ×2 (08:09→19:59)
[2018-12-08] MEDS: losartan 25mg tablet PO SCH (08:10)
[2018-12-08] MEDS: amLODIPine 5mg tablet PO SCH (08:10)
[2018-12-08] MEDS: buPROPion SR 150mg tablet PO SCH ×3 (08:10→19:59)
[2018-12-08] MEDS: carvedilol 6.25mg tablet PO SCH ×3 (08:10→20:56)
[2018-12-08] MEDS: nicotine 21mg patch - 24 hr TD SCH (08:11)
[2018-12-08] MEDS: potassium chloride 10mEq ER tablet PO SCH (08:11)
[2018-12-08] MEDS: carbamide peroxide 15ml bottle EACH EAR SCH ×2 (08:12→20:00)
[2018-12-08] MEDS: NYSTATIN CREAM - 30GM TUBE TP SCH ×2 (08:12→19:59)
--- NOTE | 2018-12-08 14:44 | NUR ---
Nursing Note: Chief Complaint: Mood D/O Legal hold: LPS Conserved Client on involuntary status for GD/DTS Report received from nurse with use of SBAR: BANDAR Hammond Why are they here: Pt. is LPS Conserved by [facility] and [facility] from the [facility]. This [facility] reported pt. refused to shower and because of this they gave her a 82-[id number] at which time pt. became agitated. Pt. has a hx Schizophrenia x20 years and has been conserved numerous times. Pt. is currently awaiting placement by [facility]. Diagnosis/presenting symptoms: Pt. continues to present with a flat affect with some brightening, labile mood, and denies any depression, anxiety, or H/A. Assessment What has happened this shift: Pt sitting in the chair at the end of a hallway at the beginning of the shift with a blue hoodie covering most of her face. She is up for all meals and attended AM group but refuses to go to the afternoon art therapy group. Pt reports LBM 12/06/18 I usually go every other day. She continues to refuse to shower or change her clothes although she has been encouraged and prompted throughout the day. S/I, H/I: Denies A/VH: Denies, however at times pt's mouth can be seen moving and she will mumble to herself as if responding to A/H Sleep: she naps throughout the day in between meals and am group. ADL's: Poor; she is resistive to care Group attendance: AM Were meds taken: Y Any med S/E: N Mental Status Exam Appearance: wrapped in hooded sweater with de leon on head Eye contact: Fair Behavior: Cooperative, withdrawn, Psychomotor activity: WNL Speech: Slow, soft Mood: Pleasant/withdrawn Affect: Flat with brightening Thought process: Poverty of thought and blocking regarding mental illness Thought Content: Possible paranoid delusions, A/H, and phobia r/t self-care and placement. Cognition: A&O Insight: Poor to fair Judgment: Fair Interventions PRN's used: N/A Therapeutic interventions: Provided active listening, maintained a safe and therapeutic environment, encouraged and prompted ADLs, reinforced reality as needed, education provided on the importance of keeping skin clean and dry and allowing treatments, and maintained q 15 min safety checks. Restraints/seclusion/emergency medication: N/A Justification of Continued Inpatient Treatment: Pt. remains LPS Conserved and is awaiting placement by through [employer]. Public Guardian.
[2018-12-08 19:00] VITALS: BP 102/52
--- NOTE | 2018-12-08 23:06 | NUR ---
Nursing Note: Chief Complaint: Mood D/O Legal hold: LPS Conserved Client on involuntary status for GD/DTS Report received from nurse with use of SBAR: BANDAR Ann Why are they here: Pt. is LPS Conserved by [facility]. This [facility] reported pt. refused to shower and because of this they gave her a 64-[id number] at which time pt. became agitated. Pt. has a hx Schizophrenia x20 years and has been conserved numerous times. Pt. is currently awaiting placement by [facility]. Diagnosis/presenting symptoms: Pt. continues to present with a flat affect, labile mood, and denies any depression, anxiety, or H/A. Assessment What has happened this shift: Pt in bed mumbling to herself at time of 1:1 assessment. Pt stated she feels better than yesterday but could not pinpoint why. Her affect is flat but a bit brighter today and she even laughed; was more cooperative with care for rashes and allowed the RN to clean, dry, and apply the Nystatin cream to rashes under breasts and pannis. RN reinforced the importance of doing this care. Pt states she has not had a BM since 12/06 but declined MOM. BP 107/76, HR 88 at time carvedilol given. Pt agreeable and making intermittent eye contact this evening. After assessment, patient went to the group room for snack then to sit in the hallway chair before turning into bed. S/I, H/I: Denies A/VH: Denies, however upon entering the room before patient knew I was there I watched her mumbling and turning her head as though responding to internal stimuli. Sleep: Sleeps most of the night but occasionally gets up to sit in the grewal chair ADL's: Poor; she is resistive to care Group attendance: N/A; patient attended snack in group room Were meds taken: Y Any med S/E: N Mental Status Exam Appearance: wrapped in hooded sweater hair disheveled, green unit attire with noticeable soiling from food in some areas Eye contact: Fair Behavior: Cooperative, withdrawn Psychomotor activity: WNL Speech: Slow, soft Mood: Pleasant/withdrawn Affect: Flat with brightening, pt laughed a couple times at RN jokes Thought process: Poverty of thought Thought Content: Possible paranoid delusions, A/H, and phobia r/t self-care and placement. Cognition: A&O Insight: Poor to fair Judgment: Fair Interventions PRN's used: N/A Therapeutic interventions: Maintained a safe and therapeutic environment, encouraged and prompted ADLs, reinforced reality as needed, education provided on the importance of keeping skin clean and dry and allowing treatments per order, and maintained q 15 min safety checks. Restraints/seclusion/emergency medication: N/A Justification of Continued Inpatient Treatment: Pt. remains LPS Conserved and is awaiting placement by through [employer]. Public Guardian.
[2018-12-09 08:00] VITALS: BP 139/77
[2018-12-09] MEDS: NYSTATIN CREAM - 30GM TUBE TP SCH ×2 (08:00→20:49)
[2018-12-09] MEDS: carbamide peroxide 15ml bottle EACH EAR SCH ×2 (08:00→20:48)
[2018-12-09] MEDS: nicotine 21mg patch - 24 hr TD SCH ×2 (08:00→08:11)
[2018-12-09] MEDS: atorvastatin 10mg tablet PO SCH (08:10)
[2018-12-09] MEDS: amLODIPine 5mg tablet PO SCH (08:10)
[2018-12-09] MEDS: loratadine 10mg tablet PO SCH (08:10)
[2018-12-09] MEDS: buPROPion SR 150mg tablet PO SCH ×3 (08:11→20:49)
[2018-12-09] MEDS: venlafaxine XR 75mg capsule (Q24H) PO SCH (08:11)
[2018-12-09] MEDS: carvedilol 6.25mg tablet PO SCH ×2 (08:11→20:49)
[2018-12-09] MEDS: losartan 25mg tablet PO SCH (08:11)
[2018-12-09] MEDS: topiramate 100mg tablet PO SCH ×2 (08:12→20:49)
[2018-12-09] MEDS: potassium chloride 10mEq ER tablet PO SCH (08:12)
--- NOTE | 2018-12-09 12:38 | NUR ---
1:1 DISCHARGE PLANNING JERICHO faxed updated progress and nursing notes to [facility] and [facility]. JERICHO emailed Allan at [facility], requesting updated information regarding placement search. JERICHO requested names of facilities and dispostions. HERMINIO Leon Addendum: 12/09/18 at 1436 by Agnieszka ROSE JERICHO received TC from Annita at [facility], reporting pt has been tentatively accepted to [facility] in [place]. Per Annita, [facility] Wind Operations Manager, Aixa, requested to have a Skype or Facetime interview with pt prior to full acceptance. JERICHO provided Annita with SW contact information. HERMINIO Leon Addendum: 12/09/18 at 1529 by Agnieszka ROSE Wind Operations ManagerAixa, completed Facetime interview with pt. Aixa reports concern that pt may be more depressed than she is admitting. Pt states she has difficulty showering due to fear of hot water and fear of falling. Pt provided solutions that include a shower chair and rubber mat on the shower floor. Aixa reports he will discuss pt's interview with Clinical Director and contact SW with the final decision. HERMINIO Leon
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
--- NOTE | 2018-12-09 19:00 | NUR ---
RN PROGRESS NOTE: Chief Complaint: Depression, decrease in functionality. Legal hold: LPS Conserved for GD. Report received from nurse with use of SBAR: Alessandro Delacruz RN Why are they here: Clients ability to function due to her depression was declining to the point where client would not take a shower or perform ADL's. Diagnosis/presenting symptoms: Hx Schizophrenia, paranoid type. Depression. ASSESSMENT: Clients affect was flat and she has psychomotor retardation. Quiet. Client was able to sleep 6.5 hours. Compliant with meds. Needs prompting. S/I, H/I: Denies A/VH: Denies at this time. Sleep: 6.5 hours. ADL's: Gets up for meals and toileting. Group attendance: N/A Were meds taken: Yes. Any med S/E: N/A MENTAL STATUS EXAM: Appearance: Disheveled. Foul smell. Eye contact: Fair. Behavior: Isolative. Psychomotor activity: Psychomotor retardation. Speech: Slow, soft; low Mood: Pleasant/withdrawn Affect: Flat. Thought process: Poverty of thought; thought blocking Thought Content: Possible paranoid delusions, A/H. Cognition: A/Ox3 Insight: Poor to fair. Judgment: Poor. INTERVENTIONS: PRN's used: N/A 1:1 SUPPORT. q 15 min checks for safety. Meds. Active listening. Justification of Continued Inpatient Treatment: Pt. remains LPS Conserved and is awaiting placement by through [employer]. Public Guardian.
[2018-12-09 20:00] VITALS: BP 132/82
[2018-12-10 07:43] VITALS: BP 119/82
[2018-12-10] MEDS: NYSTATIN CREAM - 30GM TUBE TP SCH ×2 (08:00→20:00)
[2018-12-10] MEDS: carbamide peroxide 15ml bottle EACH EAR SCH ×2 (08:00→20:00)
[2018-12-10] MEDS: atorvastatin 10mg tablet PO SCH (08:01)
[2018-12-10] MEDS: potassium chloride 10mEq ER tablet PO SCH (08:02)
[2018-12-10] MEDS: topiramate 100mg tablet PO SCH ×2 (08:03→21:43)
[2018-12-10] MEDS: losartan 25mg tablet PO SCH (08:03)
[2018-12-10] MEDS: loratadine 10mg tablet PO SCH (08:03)
[2018-12-10] MEDS: buPROPion SR 150mg tablet PO SCH ×3 (08:04→21:43)
[2018-12-10] MEDS: carvedilol 6.25mg tablet PO SCH ×2 (08:04→21:43)
[2018-12-10] MEDS: venlafaxine XR 75mg capsule (Q24H) PO SCH (08:05)
[2018-12-10] MEDS: amLODIPine 5mg tablet PO SCH (08:05)
--- NOTE | 2018-12-10 17:56 | NUR ---
Nursing Note for DM Chief Complaint: Mood D/O Legal hold: LPS Conserved Client on involuntary status for GD/DTS Report received from nurse with use of SBAR: Debby Delacruz RN Why are they here: Pt. is LPS Conserved by [facility]. This [facility] reported pt. refused to shower and because of this they gave her a 61-[id number] at which time pt. became agitated. Pt. has a hx Schizophrenia x20 years and has been conserved numerous times. Pt. is currently awaiting placement by [facility]. Diagnosis/presenting symptoms: Current Dx is Schizophrenia, paranoid type. Pt. continues to present with a flat affect with some brightening, labile mood, and depression. Assessment Pt. Seen in day room at beginning of shift. Pt. Alternates between day room and taking naps. Pt. Is withdrawn. Pt. Did not want me to assess her chest wound. Pt. Appears to be responding to internal stimuli but denies hearing voices. Pt. Is calm and cooperative. Going to meals in day room and taking medications. Pt. Showered yesterday, pt. Willing to take shower if she has her socks on in the shower and towel on both seats so she will not fall. She also only like lukewarm water, pt. Reportedly cannot feel heat at all. She uses the shower hose so she can control the water that sprays her back. Pt. Responds with one word answers. Pt. Responds better to female staff. BANDAR Morales assessed pt.s chest and applied Nystatin poweder. Pt. Showered yesterday. Chest is looking better. Dr. Recinos saw her. Dr. Estevez ordered nystatin powder to be applied for 1 more week. Med order updated. Pt. Informed Dr. Estevez of Constipation for 4 days. Pt. Had told this RN she had a BM yesterday. Dr. Estevez ordered PRN MOM. Pt. Refused when RN offered MOM. S/I, H/I: Denies A/VH: Actively responding to A/H today. Sleep: Between meals and groups she naps. ADL's: gets up for meals and toileting. Group attendance: AM Were meds taken: Y Any med S/E: N/A Mental Status Exam Appearance: Clean; hair nicely washed Eye contact: Fair Behavior: Up more today Psychomotor activity: WNL Speech: Slow, soft; low Mood: Pleasant/withdrawn Affect: Flat with brightening Thought process: Poverty of thought; thought blocking Thought Content: Possible paranoid delusions, A/H. Cognition: A/Ox3 Insight: Poor to fair Judgment: Fair Interventions PRN's used: N/A Therapeutic interventions: Provided active listening and therapeutic communication; maintained a safe and therapeutic environment, encouraged and prompted ADLs, reinforced reality as needed, education provided on the importance of keeping skin clean and dry and allowing treatments, and maintained q 15 min safety checks. Restraints/seclusion/emergency medication: N/A Justification of Continued Inpatient Treatment: Pt. remains LPS Conserved and is awaiting placement by through [employer]. Public Guardian.
[2018-12-10 19:00] VITALS: BP 147/88
[2018-12-11 05:00] VITALS: BP 147/88
--- NOTE | 2018-12-11 05:54 | NUR ---
RN PROGRESS NOTE: Legal hold: LPS Conserved for GD. Report received from nurse with use of SBAR: Alessandro Delacruz RN Why are they here: Client became depressed and was not attending to her hygiene needs (i.e. not taking a shower or washing her hair). The facility, where she lived, gave her a 30 notice of eviction. Clients affect is flat and she exhibits apathy. ASSESSMENT: Client was able to sleep last night. Client refused pericare and skin care of rash. Cooperative with meds. Client sleeps in her clothes, which includes a hoodie. She moves slowly and has a depressed mood and affect. Client often sits and stares for a considerable amount of time. S/I, H/I: Denies. A/VH: Denies at this time. Sleep: Sleeps and watches TV. ADL's: Gets up for meals and toileting. Group attendance: AM Were meds taken: Y Any med S/E: N/A MENTAL STATUS EXAM: Appearance: Disheveled. Eye contact: Fair Behavior: Quiet, moves slowly. Psychomotor activity: Slow Speech: S low, soft; low Mood: Pleasant/withdrawn Affect: Flat. Thought process: Poverty of thought; thought blocking Thought Content: Possible paranoid delusions, A/H. Cognition: A/Ox3 Insight: Poor to fair Judgment: Fair Interventions PRN's used: N/A Therapeutic interventions: 1:1 support. Meds. Q 15 min checks for safety. Justification of Continued Inpatient Treatment: Pt. remains LPS Conserved and is awaiting placement by through [employer]. Public Guardian.
[2018-12-11 07:27] VITALS: BP 147/84
[2018-12-11] MEDS: losartan 25mg tablet PO SCH (07:43)
[2018-12-11] MEDS: loratadine 10mg tablet PO SCH (07:43)
[2018-12-11] MEDS: buPROPion SR 150mg tablet PO SCH ×3 (07:43→20:53)
[2018-12-11] MEDS: carvedilol 6.25mg tablet PO SCH ×2 (07:44→20:53)
[2018-12-11] MEDS: topiramate 100mg tablet PO SCH ×2 (07:45→20:53)
[2018-12-11] MEDS: potassium chloride 10mEq ER tablet PO SCH (07:45)
[2018-12-11] MEDS: venlafaxine XR 75mg capsule (Q24H) PO SCH (07:45)
[2018-12-11] MEDS: amLODIPine 5mg tablet PO SCH (07:46)
[2018-12-11] MEDS: atorvastatin 10mg tablet PO SCH (07:46)
[2018-12-11] MEDS: NYSTATIN CREAM - 30GM TUBE TP SCH ×2 (08:00→20:00)
[2018-12-11] MEDS: nicotine 21mg patch - 24 hr TD SCH (08:08)
[2018-12-11] MEDS: carbamide peroxide 15ml bottle EACH EAR SCH ×2 (08:44→20:55)
--- NOTE | 2018-12-11 09:46 | NUR ---
Reassessment: Pt PO continues to fluctuate seems to PO 100% regular meals and then refuse for a day roughly every 3 days. Labs WNL w/ no GI symptoms documented. LBM 12/09. Will monitor for ONS needs if PO continues decline. Recommendations: 1) Continue with regular diet 2) monitor for ONS needs if PO declines 3) weekly wt Addendum: 12/11/18 at [address] Amended: Links added.
--- NOTE | 2018-12-11 17:00 | NUR ---
Nursing Note for DM Chief Complaint: Mood D/O Legal hold: LPS Conserved Client on involuntary status for GD/DTS Report received from nurse with use of SBAR: BANDAR Mo Why are they here: Pt. is LPS Conserved by [facility]. This [facility] reported pt. refused to shower and because of this they gave her a 45-jau-uvkear at which time pt. became agitated. Pt. has a hx Schizophrenia x20 years and has been conserved numerous times. [facility] Diagnosis/presenting symptoms: Current Dx is Schizophrenia, paranoid type. Pt. continues to present with a flat affect with some brightening, labile mood, and depression. Assessment Pt. Seen in day room at beginning of shift. Pt. Reports she did not eat her breakfast. Pt. Alternates between day room and taking naps. Pt. Is withdrawn. And gives short 1 word answers. Pt. Needs much encouragement to get out of bed. Pt. Seen by Dr. Jauregui today. Pt. Informed of the need to get out of bed and perform ADLs in order to be placed in aftercare. Pt. Enjoys using the headphones. Pt. Reports he had a BM today. Pt. Did not want me to assess her chest wound. Pt. Appears to be responding to internal stimuli but denies hearing voices. Pt. Is calm and cooperative. Going to meals in day room and taking medications. Pt.s Temazepam q hs prn was discontinued. Pt. Showered [facility] assistance with keke Vasquez. Christina reports that pt. Cleaned self reasonably well with encouragement. BANDAR Aaron assessed pt.s chest and panas and applied Nystatin cream and powder. Nystatin cream to be used for 1 more week because wound is healing. Pt. Folds under breasts are pink and healing but pt. Is red under left armpit. Pt. Is also red an blotchy in folds of groin and panas. No peeling skin, but foul odor. Pt. Denies itching or pain. Pt. Willing to take shower if she has her socks on in the shower and towel on both seats so she will not fall. She also only like lukewarm water, pt. Reportedly cannot feel heat at all. She uses the shower hose so she can control the water that sprays her back. Pt. Answers questions with one word answers. Pt. Responds better to female staff. Weight taken today of 116.8kg. Pt. Ate all over her lunch today. S/I, H/I: Denies A/VH: Denies. Sleep: Pt. Takes naps between groups and meals frequently. ADL's: gets up for meals and toileting. Group attendance: Pt. Went to movie group. Were meds taken: Y Any med S/E: N/A Mental Status Exam Appearance: Unkempt until shower Eye contact: Fair Behavior: Encouraged to get out of bed and engage other patients. Psychomotor activity: WNL Speech: Slow, soft; low Mood: withdrawn Affect: Flat Thought process: Poverty of thought; thought blocking Thought Content: Possible paranoid delusions, A/H. Cognition: A/Ox4 Insight: Poor to fair Judgment: Fair Interventions PRN's used: N/A Therapeutic interventions: Provided active listening and therapeutic communication; maintained a safe and therapeutic environment, encouraged and prompted ADLs, reinforced reality as needed, education provided on the importance of keeping skin clean and dry and allowing treatments, and maintained q 15 min safety checks. Restraints/seclusion/emergency medication: N/A Justification of Continued Inpatient Treatment: Pt. remains LPS Conserved and is awaiting placement by through [employer]. Public Guardian.
[2018-12-11 19:03] VITALS: BP 123/75
--- NOTE | 2018-12-11 23:51 | NUR ---
BANDAR PROGRESS NOTE: Chief Complaint: Grave disability, MDD, schizophrenia. Legal hold: LPS Conserved Report received from BANDAR Stubbs. Why are they here: This is a patient from [facility] that was place on 5150 for grave disability due to not showering for a week. She states that it's too hard and the water mai her. Diagnosis/presenting symptoms: Major Depressive Disorder, Schizophrenia, hopeless, helpless, Anhedonia, isolative. Assessment: What has happened this shift: The patient was received in bed sleeping. She was woken for 1:1, but refused any physical assessment. She was asked to come out of her room and be social for a while, but wouldn't even answer. The patient was asked if she would allow anybody to apply Nystatin to her groin, pannus, and under breast area. "No." She was sleeping in her clothes, leopard print bottoms and hoodie sweatshirt. She readily accepts her medication, including Debrox ear drops. When she moves from side to side, she is very tentative with her movements, but denies pain. She was wearing ear phones and was allowed to continue, as this is the only thing that seems to make her less depressed. This is just an observation, because the patient does not share how she feels. She was offered snacks, but would not get up. The patient has remained in bed all evening. S/I, H/I: Denies A/VH: Denies Sleep: has been asleep all shift. ADL's: Self, but needs encouragement. Group attendance: No groups tonight. Were meds taken: Yes. Any med S/E: None noted or reported. Mental Status Exam: Appearance: Disheveled female laying in bed with her street clothes on. Eye contact: Absent. Behavior: Quiet, cooperative. Isolates to self. Speech: Slow, latent. Mood: Depressed Affect: Flat Thought process: Organized, linear Thought Content: Pt does not express her thoughts. Cognition: A/O x4 Insight: Fair Judgment: Poor Interventions: PRN's used: None Therapeutic interventions: 1:1 assessment, encouragement in personal hygiene/ADLs,medication administration & monitoring,Q 15 minute checks. Restraints/seclusion/emergency medication: None Justification of Continued Inpatient Treatment: Patient continues to need encouragement, supervision, and assistance to perform ADLs. Depression, anhedonia, isolation continues, pt is conserved and guardian does not wish for her to return to [place], seeking appropriate placement.
[2018-12-12 07:30] VITALS: BP 112/75
[2018-12-12] MEDS: carvedilol 6.25mg tablet PO SCH ×2 (07:45→20:19)
[2018-12-12] MEDS: loratadine 10mg tablet PO SCH (07:45)
[2018-12-12] MEDS: venlafaxine XR 75mg capsule (Q24H) PO SCH (07:45)
[2018-12-12] MEDS: amLODIPine 5mg tablet PO SCH (07:46)
[2018-12-12] MEDS: topiramate 100mg tablet PO SCH ×2 (07:47→20:16)
[2018-12-12] MEDS: losartan 25mg tablet PO SCH (07:47)
[2018-12-12] MEDS: buPROPion SR 150mg tablet PO SCH ×3 (07:48→20:16)
[2018-12-12] MEDS: atorvastatin 10mg tablet PO SCH (07:48)
[2018-12-12] MEDS: potassium chloride 10mEq ER tablet PO SCH (07:48)
[2018-12-12] MEDS: NYSTATIN CREAM - 30GM TUBE TP SCH ×2 (08:00→20:00)
[2018-12-12] MEDS: carbamide peroxide 15ml bottle EACH EAR SCH ×2 (08:32→20:20)
[2018-12-12] MEDS: nicotine 21mg patch - 24 hr TD SCH (08:43)
--- NOTE | 2018-12-12 15:56 | NUR ---
1:1 DISCHARGE PLANNING SW emailed Aixa Ruff at [facility] to follow up on pt referral and interview. HERMINIO Leon
--- NOTE | 2018-12-12 17:38 | NUR ---
Nursing Note for DM Chief Complaint: Mood D/O Legal hold: LPS Conserved Client on involuntary status for GD/DTS Report received from nurse with use of SBAR: BANDAR Mo Why are they here: Pt. is LPS Conserved by [facility]. This [facility] reported pt. refused to shower and because of this they gave her a [id number] at which time pt. became agitated. Pt. has a hx Schizophrenia x20 years and has been conserved numerous times. Pt. is currently awaiting placement by [facility]. Diagnosis/presenting symptoms: Current Dx is Schizophrenia, paranoid type. Pt. continues to present with a flat affect with some brightening, labile mood, and depression. Assessment Pt. Seen in day room at beginning of shift. Pt. did not eat her breakfast. Pt. did not allow RN to assess wounds. Pt. refused nystatin powder. RN prompted pt. multiple times for self care such as brushing teeth, skin care, pt. replied "later" and then "I don't want to". Pt. did take all po medications. Pt. Alternates between day room and taking naps. Pt. Is withdrawn. And gives short 1 word answers. Pt. Needs much encouragement to get out of bed. Pt. Informed of the need to get out of bed and perform ADLs in order to be placed in aftercare. Pt. Enjoys using the headphones. Pt. Reports she had a BM yesterday. Pt refused lunch. Pt. found crying in her room, did not want to talk about what was upsetting her. Pt. Did not want RN or a female RN to assess her chest wound. Pt. Appears to be responding to internal stimuli but denies hearing voices. Pt. Is calm. RN encouraged pt. to perform ADLs and why it's important for placement in after care. RN encouraged pt. to brush teeth. Pt. did not know the last time she brushed her teeth. Refused lunch. Pt. started on Haldol 2.5mg qHS. Pt. will need a shower tomorrow 12/13 Per most recent wound assessment on 12/11 "BANDAR Aaron assessed pt.'s chest and panas and groin folds and applied Nystatin cream and powder. Nystatin cream to be used for 1 more week. because wound is healing. Pt.'s folds under breasts are pink and healing. but pt. is red under left armpit. Pt. is also red and blotchy in folds of groin and panas. No peeling skin, but foul oder. Pt. denies itching or pain. Pt. showered today as well." S/I, H/I: Denies A/VH: Denies. Sleep: Pt. Takes naps between groups ADL's: gets up for toileting. Group attendance: Pt. Went art group today. Were meds taken: Y. Refused Nystatin Any med S/E: N/A Mental Status Exam Appearance: Unkempt, pt. sleeps in her clothes. Eye contact: Fair Behavior: Isolative, tearful at times. Psychomotor activity: WNL Speech: Slow, low volume. One word answers. Mood: withdrawn, depressed Affect: Flat Thought process: Poverty of thought; thought blocking Thought Content: Possible paranoid delusions, A/H. Cognition: A/Ox4 Insight: Poor to fair Judgment: Fair Interventions PRN's used: N/A Therapeutic interventions: Provided active listening and therapeutic communication; maintained a safe and therapeutic environment, encouraged and prompted ADLs, reinforced reality as needed, education provided on the importance of keeping skin clean and dry and allowing treatments, and maintained q 15 min safety checks. Restraints/seclusion/emergency medication: N/A Justification of Continued Inpatient Treatment: Pt. remains LPS Conserved and is awaiting placement by through [facility] Public Guardian.
[2018-12-12] MEDS: haloperidol 5mg tablet PO SCH (20:16)
[2018-12-12 20:25] VITALS: BP 141/86
--- NOTE | 2018-12-13 01:10 | NUR ---
BANDAR PROGRESS NOTE: Chief Complaint: Grave disability, MDD, schizophrenia. Legal hold: LPS Conserved Report received from BANDAR Stubbs. Why are they here: This is a patient from [facility] that was place on 5150 for grave disability due to not showering for a week. She states that it's too hard and the water mai her. Diagnosis/presenting symptoms: Major Depressive Disorder, Schizophrenia, hopeless, helpless, Anhedonia, isolative. Assessment: What has happened this shift: The patient was received in bed sleeping. She was woken for 1:1, but refused any physical assessment. She refused Nystatin to her pannus, under the breasts, and groin areas. This has been her usual activity. No amount of prompting changes this outcome. She either sleeps or will be seen staring at nothing. She continues to wear the same clothes as yesterday. Cheyanne, will you at least put clean clothes on? "No." The patient takes her PO HS meds without problem and agrees to Debrox in her ears, but nothing else. The patient stayed in bed until 0100, when she came and sat in the chair by the rec room for 1/2 hour, then went back to bed. The patient continues to appear very depressed with flat affect. S/I, H/I: Denies A/VH: Denies Sleep: Sleeps on and off, but will lay in bed awake. ADL's: Self, but needs encouragement. Group attendance: No groups tonight. Were meds taken: Yes. Any med S/E: None noted or reported. Mental Status Exam: Appearance: Disheveled female wearing yesterday's clothes. Eye contact: Absent. Behavior: Quiet, cooperative. Isolates to self. Speech: Slow, latent. Mood: Depressed Affect: Flat Thought process: Organized, linear Thought Content: Pt does not express her thoughts. Cognition: A/O x4 Insight: Fair Judgment: Poor Interventions: PRN's used: None Therapeutic interventions: 1:1 assessment, encouragement in personal hygiene/ADLs,medication administration & monitoring,Q 15 minute checks. Restraints/seclusion/emergency medication: None Justification of Continued Inpatient Treatment: Patient continues to need encouragement, supervision, and assistance to perform ADLs. Depression, anhedonia, isolation continues, pt is conserved and guardian does not wish for her to return to [place], seeking appropriate placement.
[2018-12-13 07:38] VITALS: BP 134/82
[2018-12-13] MEDS: topiramate 100mg tablet PO SCH ×2 (08:46→21:40)
[2018-12-13] MEDS: venlafaxine XR 75mg capsule (Q24H) PO SCH (08:46)
[2018-12-13] MEDS: buPROPion SR 150mg tablet PO SCH ×3 (08:46→21:40)
[2018-12-13] MEDS: amLODIPine 5mg tablet PO SCH (08:46)
[2018-12-13] MEDS: loratadine 10mg tablet PO SCH (08:47)
[2018-12-13] MEDS: naproxen 500mg tablet PO PRN (08:47)
[2018-12-13] MEDS: losartan 25mg tablet PO SCH (08:47)
[2018-12-13] MEDS: carvedilol 6.25mg tablet PO SCH ×2 (08:47→21:40)
[2018-12-13] MEDS: atorvastatin 10mg tablet PO SCH (08:47)
[2018-12-13] MEDS: carbamide peroxide 15ml bottle EACH EAR SCH ×2 (08:48→20:00)
[2018-12-13] MEDS: NYSTATIN CREAM - 30GM TUBE TP SCH ×2 (08:48→21:49)
[2018-12-13] MEDS: potassium chloride 10mEq ER tablet PO SCH (08:52)
[2018-12-13] MEDS: nicotine 21mg patch - 24 hr TD SCH (08:53)
--- NOTE | 2018-12-13 12:24 | NUR ---
1:1 DISCHARGE PLANNING JERICHO faxed updated notes to [facility] for placement admission. JERICHO left message for [facility] Assistant, Aixa Ruff, for follow up regarding acceptance or denial. Updated notes were faxed to [facility] in [facility] at [phone] HERMINIO Leon
--- NOTE | 2018-12-13 18:20 | NUR ---
Nursing Note: Chief Complaint: Mood D/O Legal hold: LPS Conserved Client on involuntary status for GD/DTS Report received from nurse with use of SBAR: Debby Delacruz RN Why are they here: Pt. is LPS Conserved by [facility]. This [facility] reported pt. refused to shower and because of this they gave her a [id number] at which time pt. became agitated. Pt. has a hx Schizophrenia x20 years and has been conserved numerous times. [facility] Diagnosis/presenting symptoms: Current Dx is Schizophrenia, paranoid type. Pt. continues to present with a flat affect with some brightening, labile mood, and depression. Assessment What has happened this shift: Patient presents with her usual flat affect and depressed mood. Allowed staff to engage with her. She laughed when staff attempted to tell her a joke. Asked about her life at her last residence. Patient stated she lived in a room on a floor with ten other women. States there are two bathrooms "but everyone uses the one in the middle. One person goes in at a time." When asked what prevented her from showering while she was there, patient stared at staff without comment. When asked what she did with her time, patient stated "My caregiver took me to the [employer]. I bought books to read." Patient's severe level of depression remains the same from one admission to the next. When she is not attending group, she isolates in her room. Her interest in reading has waned. When asked if she had any hope of happiness for her life, patient states "no." Showered today with minimal effort on the part of staff. Per MD when assisting and prompting pt to shower: she needs skid socks on so she will not fall in the shower and a towel on the shower floor and on both seats, the water has to be lukewarm (she cannot feel heat at all) also, she has to use the hose so the water getting on her back is controlled by her. S/I, H/I: Denies A/VH: Actively responding to A/H today. Sleep: Between meals and groups she naps. ADL's: Showered, changed sheets and washed her clothes today. Group attendance: AM Were meds taken: Y Any med S/E: N/A Mental Status Exam Appearance: Clean; hair nicely washed Eye contact: Fair Behavior: Up more today Psychomotor activity: WNL Speech: Slow, soft; low Mood: Pleasant/withdrawn Affect: Flat with brightening Thought process: Poverty of thought; less blocking regarding mental illness Thought Content: Possible paranoid delusions, A/H. Cognition: A/Ox3 Insight: Poor to fair Judgment: Fair Interventions PRN's used: N/A Therapeutic interventions: Provided active listening and therapeutic communication; maintained a safe and therapeutic environment, encouraged and prompted ADLs, reinforced reality as needed, education provided on the importance of keeping skin clean and dry and allowing treatments, and maintained q 15 min safety checks. Restraints/seclusion/emergency medication: N/A Justification of Continued Inpatient Treatment: Pt. remains LPS Conserved and is awaiting placement by through [facility].
[2018-12-13 20:00] VITALS: BP 127/72
[2018-12-13] MEDS: haloperidol 5mg tablet PO SCH (21:40)
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
[2018-12-14 08:00] VITALS: BP 136/76
[2018-12-14] MEDS: atorvastatin 10mg tablet PO SCH (08:45)
[2018-12-14] MEDS: loratadine 10mg tablet PO SCH (08:45)
[2018-12-14] MEDS: topiramate 100mg tablet PO SCH ×2 (08:45→21:33)
[2018-12-14] MEDS: carvedilol 6.25mg tablet PO SCH ×2 (08:45→21:33)
[2018-12-14] MEDS: potassium chloride 10mEq ER tablet PO SCH (08:46)
[2018-12-14] MEDS: losartan 25mg tablet PO SCH (08:46)
[2018-12-14] MEDS: venlafaxine XR 75mg capsule (Q24H) PO SCH (08:46)
[2018-12-14] MEDS: amLODIPine 5mg tablet PO SCH (08:46)
[2018-12-14] MEDS: buPROPion SR 150mg tablet PO SCH ×3 (08:46→21:33)
[2018-12-14] MEDS: nicotine 21mg patch - 24 hr TD SCH (08:52)
[2018-12-14] MEDS: NYSTATIN CREAM - 30GM TUBE TP SCH ×2 (08:55→21:43)
[2018-12-14] MEDS: carbamide peroxide 15ml bottle EACH EAR SCH ×2 (08:55→20:00)
--- NOTE | 2018-12-14 14:05 | NUR ---
1:1 DISCHARGE PLANNING SW received TC from Brando Ruff at [facility], who reports the facility's need for pt to have flexibility in her showering regimen. Per Brando, pt has to be accepting of a showerhead mounted in the wall and the ability to complete a shower without another person standing next to her during the process. JERICHO met with pt, who agrees to "give it a try" with showering by herself and using a mounted showerhead. JERICHO informed Brando, who reports he will have a decision soon. HERMINIO Leon
--- NOTE | 2018-12-14 16:26 | NUR ---
RN Progress Note: Chief Complaint: Grave disability, MDD, schizophrenia. Legal hold: LPS Conserved Report received from: BANDAR Veras with use of SBAR Why are they here: This is a conserved patient from [facility] placed on 5150 for GD due to not showering for a week. She states that it's too hard and the water mai her. Diagnosis/presenting symptoms: Major Depressive Disorder, Schizophrenia, hopeless, helpless, Anhedonia, isolative. Assessment: What has happened this shift: Patient is sleeping in her bed at shift change, no observable distress. She wakes and joins others for breakfast in the group room. After breakfast RN meets her back in her room to administer medications. Patient takes all medication without issue. When looking for old nicotine patch to remove, it is gone, and patient states it must have been removed. RN asked if patient slept better last night, explaining that having the patch on at night can cause nightmares, patient smiled and chuckled. Patient easily agreed to have cream applied to rash and eardrops administered. Patient reports that both her ears and the rash have improved. Patients overall demeanor is a large improvement when compared to prior shifts working with her. RN forgot to get headphones for patient and patient just laughed when it was pointed out. She remains in a good mood the rest of the day. S/I, H/I: Denies A/VH: Denies Sleep: states she slept ok, rested periodically during the day ADL's: showere yesterday, accepted rash treatment last night and today Group attendance: yes Were meds taken: Yes Any med S/E: None noted or reported Mental Status Exam: Appearance: Disheveled Eye contact: occasional Behavior: cooperative Speech: clear, soft, answers questions but does not elaborate Mood: good Affect: restricted with occasional softening Thought process: unable to formally assess Thought Content: patient is not conversational, unable to formally assess Insight: fair Judgment: fair Interventions: PRN's used: None Therapeutic interventions: 1:1 assessment at bedside, therapeutic conversation that included active listening with positive reinforcement, medication education; monitored medications for SEs; encouraged showers and nystatin use; monitored q15min safety checks. Restraints/seclusion/emergency medication: N/A Justification of Continued Inpatient Treatment: Pt is conserved and is pending placement--TAD office to call in the morning to update SW, continue therapeutic support in hygiene and medication management to provide stabilization, prevent decompensation, decreasing risk to patient and readmittance.
--- NOTE | 2018-12-14 20:15 | NUR ---
Art Therapy Group, Continued: Patient was willing to participate in group art therapy today, choosing to sit at a table adjacent to the other table where her peers were sitting. Patient was able to follow directives and completed a drawing/feeling expression she identified as Mad v.s. Glad. Patient worked independently of group, methodically expressing her feelings for repressed anger. Patient did not choose to write/journal however, was open to talking with this therapist at the close of the session. Patient noted: "I am both mad and glad about a few things." When patient was asked if she could expand on what "a few things were, she re-stated..."Just a few things." While patient was sharing she allowed herself to express/feel very sad and tearful. She did not elaborate on any specifics, however, this was the first time she was able to feel/express and allow herself to participate in the completion of an expressive art exercise since her admission. Lilibeth Coleman MA, ASSEMBLER MOVEMENT #[id number] [facility] Art Therapist Addendum: 12/14/18 at 2017 by Lilibeth ROSE Amended: Links added.
[2018-12-14 20:29] VITALS: BP 137/78
[2018-12-14] MEDS: haloperidol 5mg tablet PO SCH (21:33)
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
[2018-12-15 07:47] VITALS: BP 104/66
[2018-12-15] MEDS: NYSTATIN CREAM - 30GM TUBE TP SCH ×2 (08:00→20:00)
[2018-12-15] MEDS: carbamide peroxide 15ml bottle EACH EAR SCH ×2 (08:00→20:00)
[2018-12-15] MEDS: venlafaxine XR 75mg capsule (Q24H) PO SCH (08:31)
[2018-12-15] MEDS: losartan 25mg tablet PO SCH (08:31)
[2018-12-15] MEDS: amLODIPine 5mg tablet PO SCH (08:32)
[2018-12-15] MEDS: potassium chloride 10mEq ER tablet PO SCH (08:32)
[2018-12-15] MEDS: atorvastatin 10mg tablet PO SCH (08:32)
[2018-12-15] MEDS: buPROPion SR 150mg tablet PO SCH ×3 (08:32→21:36)
[2018-12-15] MEDS: loratadine 10mg tablet PO SCH (08:32)
[2018-12-15] MEDS: topiramate 100mg tablet PO SCH ×2 (08:32→21:36)
[2018-12-15] MEDS: carvedilol 6.25mg tablet PO SCH ×2 (08:32→21:36)
[2018-12-15] MEDS: acetaminophen 325mg tablet PO PRN (08:52)
--- NOTE | 2018-12-15 10:20 | NUR ---
Reassessment: No significant changes in PO intake; pt continues with 100% and refusals. Documented PO intake 100% 12/13-12/14 however documented that p refused breakfast this AM. LBM 12/15. Will continue to follow. Recommendations: 1) Continue with regular diet 2) monitor for ONS needs if PO declines 3) weekly wt Addendum: 12/15/18 at [address] Amended: Links added.
[2018-12-15] MEDS: nicotine 21mg patch - 24 hr TD SCH (12:43)
--- NOTE | 2018-12-15 15:13 | NUR ---
1:1 DISCHARGE PLANNING SW coordinated placement for pt with [facility] and [facility]. SW informed of pt's acceptance in program. [facility] and TAD Office reports pt will likely be transported on 12/19/2018. HERMINIO Leon
--- NOTE | 2018-12-15 16:22 | NUR ---
Nursing Note: Chief Complaint: Mood D/O Legal hold: LPS Conserved Client on involuntary status for GD/DTS Report received from nurse with use of SBAR: BANDAR Castillo Why are they here: This is a conserved patient from [facility] placed on 5150 for GD due to not showering for a week. She states that it's too hard and the water mai her. Diagnosis/presenting symptoms: F33.2 - Major depressive disorder, recurrent severe without psychotic features, F20.9 - Schizophrenia, unspecified Assessment What has happened this shift: Patient is observed resting in her bed at change of shift. Patient observed in group room during breakfast time looking down at the table, holding her head. When asked if she is ok she states My head hurts and my stomach hurts. Patient reports that it started last night. When asked if her temperature was taken patient states that it was and it was normal. PRN Tylenol administered as prescribed. 7-up provided for upset stomach. Patient is observed responding to internal stimuli while laying in her bed. She does not attend group. She states that she doesn't feel good enough to shower today but accepts cleaning and application of ointment to under both breasts and perineal area. Under breasts looks almost completely clear, small strip of redness in the middle. Perennial area has improved but remains reddened. Patient states that she still does not feel well and would like to rest. S/I, H/I: Denies A/VH: observed responding to internal stimuli Sleep: Pt. Slept well last night and sleeps during the day ADL's: Requires encouragement and direction, staff assistance required with showering Group attendance: no Were meds taken: Yes Any med S/E: No Mental Status Exam Appearance: appropriately dressed, hair disheveled Eye contact: direct Behavior: Cooperative, withdrawn, and fatigued. Reports not feeling well Speech: soft tone, hypo-verbal Mood: not feeling well today but mood is ok Affect: Flat Thought process: Poverty of thought Thought Content: unable to formally assess, patient is not conversational Cognition: A&Oxs4 Insight: Poor to fair Judgment: Fair Interventions PRN's used: None Therapeutic interventions: 1:1 communication with RN that included active listening with positive feedback, maintained a safe and therapeutic environment, encouraged independent performance of ADLs, provided medication education, and maintained Q 15 min safety checks. Restraints/seclusion/emergency medication: N/A Justification of Continued Inpatient Treatment: Pt is conserved, pending placement at [facility], continue therapeutic support in hygiene and medication management to provide stabilization, prevent decompensation, decreasing risk to patient and readmittance.
[2018-12-15] MEDS ORDERED: paliperidone palmitate 156 mg/ml inj.**IM only IM ONE (16:55)
[2018-12-15 19:00] VITALS: BP 120/62
[2018-12-15] MEDS: haloperidol 5mg tablet PO SCH (21:35)
--- NOTE | 2018-12-16 00:46 | NUR ---
Report received from nurse with use of SBAR: BANDAR Aaron Why are they here: [facility]150 for GD due to not showering for a week. She states that it's too hard and the water mai her. Diagnosis/presenting symptoms: F33.2 - Major depressive disorder, recurrent severe without psychotic features, F20.9 - Schizophrenia, unspecified Assessment What has happened this shift: Patient was in bed at shift change. Pt reported she left group early today because she said she did't feel well. Was given lemon-quinault soda to help with her upset stomach. Pt stated she had a headache, was offered motrin or tylenol, but stated "it wouldn't work." Administered all medications with no adverse side effects noted. Invega injection administered into left delotoid, education pamphlet given and explained to patient. Patient refused her nystatin, so was unable to assess under her breasts and pannus. S/I, H/I: patient denies A/VH: patient denies Sleep: see sleep assessment notation ADL's: requires encouragement Group attendance: operations supervisor 2nd shift, no group Were meds taken: Yes Any med S/E: none reported or observed Mental Status Exam Appearance: unkempt Eye contact: direct Behavior: laying in bed, states not feeling well, quiet Speech: clear, soft, flat Mood: fatigued, not feeling well (c/o of nausea) Affect: Flat Thought process: Poverty of thought Thought Content: unable to assess Cognition: A&O x3 Insight: Poor to fair Judgment: Fair Interventions PRN's used: N/A Therapeutic interventions: Maintained a safe and therapeutic environment, provided medication and education, encouraged involvement with ADL's, Q 15 min safety checks. Restraints/seclusion/emergency medication: N/A Justification of Continued Inpatient Treatment: Pt is conserved, pending placement at [facility], continue therapeutic support in hygiene and medication management to provide stabilization, prevent decompensation, decreasing risk to patient and readmittance.
[2018-12-16 07:39] VITALS: BP 122/76
[2018-12-16] MEDS: carbamide peroxide 15ml bottle EACH EAR SCH ×2 (08:00→21:06)
[2018-12-16] MEDS: NYSTATIN CREAM - 30GM TUBE TP SCH ×2 (08:00→21:06)
[2018-12-16] MEDS: nicotine 21mg patch - 24 hr TD SCH (08:59)
[2018-12-16] MEDS: atorvastatin 10mg tablet PO SCH (09:01)
[2018-12-16] MEDS: potassium chloride 10mEq ER tablet PO SCH (09:01)
[2018-12-16] MEDS: loratadine 10mg tablet PO SCH (09:01)
[2018-12-16] MEDS: buPROPion SR 150mg tablet PO SCH ×3 (09:01→21:05)
[2018-12-16] MEDS: losartan 25mg tablet PO SCH (09:01)
[2018-12-16] MEDS: topiramate 100mg tablet PO SCH ×2 (09:01→21:05)
[2018-12-16] MEDS: carvedilol 6.25mg tablet PO SCH ×2 (09:02→21:05)
[2018-12-16] MEDS: venlafaxine XR 75mg capsule (Q24H) PO SCH (09:02)
[2018-12-16] MEDS: amLODIPine 5mg tablet PO SCH (09:02)
[2018-12-16] MEDS: acetaminophen 325mg tablet PO PRN (09:22)
--- NOTE | 2018-12-16 17:31 | NUR ---
Nursing Note: Chief Complaint: Mood D/O Legal hold: LPS Conserved Client on involuntary status for GD/DTS Report received from nurse with use of SBAR: Brigitte RN Why are they here: This is a conserved patient from [facility] placed on 5150 for GD due to not showering for a week. She states that it's too hard and the water mai her. Diagnosis/presenting symptoms: F33.2 - Major depressive disorder, recurrent severe without psychotic features, F20.9 - Schizophrenia, unspecified Assessment What has happened this shift: Received patient walking in hallway on the unit. Patient was open to discussing shower staff and agreed that it was a shower day and that she would shower between breakfast and lunch. Patient had a somewhat brighter mood today than normal. Affect was not as flat. Patient did shower with staff assistance and was agreeable to letting female staff treat her yeast infections. Patient really appreciates a female providing this treatment over a male. Patient did complain of a headache and was treated with Tylenol. While in patient room getting her morning medications ready, patient was observed laughing to herself when she thought staff was not watching. When questioned, patient denies auditory hallucinations and denies suicidal thoughts. Patient did attend groups and was visible on the unit for meals. S/I, H/I: Denies A/VH: observed responding to internal stimuli Sleep: Pt. Slept well last night and sleeps during the day ADL's: Requires encouragement and direction, staff assistance required with showering Group attendance: no Were meds taken: Yes Any med S/E: No Mental Status Exam Appearance: appropriately dressed, hair disheveled Eye contact: direct Behavior: Cooperative Speech: soft tone, hypo-verbal Mood: brighter Affect: Flat Thought process: Poverty of thought Thought Content: unable to formally assess, patient is not conversational Cognition: A&Oxs4 Insight: Poor to fair Judgment: Fair Interventions PRN's used: None Therapeutic interventions: 1:1 communication with RN that included active listening with positive feedback, maintained a safe and therapeutic environment, encouraged independent performance of ADLs, provided medication education, and maintained Q 15 min safety checks. Restraints/seclusion/emergency medication: N/A Justification of Continued Inpatient Treatment: Pt is conserved, pending placement at [facility], continue therapeutic support in hygiene and medication management to provide stabilization, prevent decompensation, decreasing risk to patient and readmittance.
[2018-12-16 19:00] VITALS: BP 126/75
[2018-12-16] MEDS: haloperidol 5mg tablet PO SCH (21:04)
--- NOTE | 2018-12-16 23:39 | NUR ---
Nursing Note: Chief complaint: Mood D/O, schizophrenia Legal hold: LPS Conserved Client on involuntary status for GD/DTS Report received from nurse with use of SBAR: Alberto RN Why are they here: This is a conserved patient from [facility] placed on 5150 for GD due to not showering for a week. She states that it's too hard and the water mai her. Diagnosis/presenting symptoms: F33.2 - Major depressive disorder, recurrent severe without psychotic features, F20.9 - Schizophrenia, unspecified Assessment What has happened this shift: Patient was asleep in bed at shift change. Patient was cooperative, however when asked about A/VH she seemed to be annoyed and denied. I later spoke with her in rec room where she was eating her late dinner. I inquired about how she felt about her placement to [facility], she said " I am okay with it, it is far away". She explained it was a [facility], "not like a lock down place." I asked if there were any places near the facility and she stated "[facility]." I told her I loved [facility] and she smiled and said she liked it too. Adminsterered all medications except for her nystatin, which she refused. Pt was listening to her headphones when I came in to give her her medications. I asked her if she liked music "yes" (flat tone). S/I, H/I: patient denies A/VH: patient denies, did not observe Sleep: see sleep assessment notation ADL's: requires encouragement Group attendance: shift production associate, no group Were meds taken: Yes, except for nystatin cream Any med S/E: none reported or observed Mental Status Exam Appearance: dressed appropiately, in bed sleeping Eye contact: direct Behavior: cooperative, little bit more conversation Speech: clear, soft, flat Mood: pleasant, cooperative Affect: Flat Thought process: Poverty of thought Thought Content: Asked how she felt about her placement to [facility]. "I am okay with it", "I have been there before, but I didn't like it, it is small". Cognition: A&O x4 Insight: Fair Judgment: Fair Interventions PRN's used: N/A Therapeutic interventions: 1:1 communication, maintained a safe and therapeutic environment, provided medication and education, encouraged involvement with ADL's, Q 15 min safety checks. Restraints/seclusion/emergency medication: N/A Justification of Continued Inpatient Treatment: Pt is conserved, pending placement at [facility] (placement date 12/19/18), continue therapeutic support in hygiene and medication management to provide stabilization, prevent decompensation, decreasing risk to patient and readmittance.
[2018-12-17 07:47] VITALS: BP 113/70
[2018-12-17] MEDS: NYSTATIN CREAM - 30GM TUBE TP SCH ×2 (08:00→20:00)
[2018-12-17] MEDS: venlafaxine XR 75mg capsule (Q24H) PO SCH (08:56)
[2018-12-17] MEDS: losartan 25mg tablet PO SCH (08:57)
[2018-12-17] MEDS: amLODIPine 5mg tablet PO SCH (08:58)
[2018-12-17] MEDS: atorvastatin 10mg tablet PO SCH (08:59)
[2018-12-17] MEDS: buPROPion SR 150mg tablet PO SCH ×3 (08:59→20:50)
[2018-12-17] MEDS: carvedilol 6.25mg tablet PO SCH ×2 (08:59→20:50)
[2018-12-17] MEDS: loratadine 10mg tablet PO SCH (09:00)
[2018-12-17] MEDS: topiramate 100mg tablet PO SCH ×2 (09:00→20:50)
[2018-12-17] MEDS: potassium chloride 10mEq ER tablet PO SCH (09:00)
[2018-12-17] MEDS: nicotine 21mg patch - 24 hr TD SCH (09:12)
[2018-12-17] MEDS: carbamide peroxide 15ml bottle EACH EAR SCH ×2 (09:15→20:51)
--- NOTE | 2018-12-17 15:47 | NUR ---
Nursing Note: Chief Complaint: Mood D/O Legal hold: LPS Conserved Client on involuntary status for GD/DTS Report received from nurse with use of SBAR: Brigitte RN Why are they here: This is a conserved patient from [facility] placed on 5150 for GD due to not showering for a week. She states that it's too hard and the water mai her. Diagnosis/presenting symptoms: F33.2 - Major depressive disorder, recurrent severe without psychotic features, F20.9 - Schizophrenia, unspecified Assessment What has happened this shift: Received patient awake in group room. Ate breakfast and lunch with others and tolerated morning and afternoon meds well. Denied wanting to shower today, as she showered yesterday. Attended groups today and answered questions appropriately. Briefly discussed her upcoming discharge to [facility]. She states having been there before and she likes where she has been in [place] better. S/I, H/I: Denies A/VH: observed responding to internal stimuli Sleep: Pt. Slept well last night and sleeps during the day ADL's: Requires encouragement and direction, staff assistance required with showering Group attendance: no Were meds taken: Yes Any med S/E: No Mental Status Exam Appearance: appropriately dressed, hair disheveled Eye contact: direct Behavior: Cooperative Speech: soft tone, hypo-verbal Mood: brighter Affect: Flat Thought process: Poverty of thought Thought Content: unable to formally assess, patient is not conversational Cognition: A&Oxs4 Insight: Poor to fair Judgment: Fair Interventions PRN's used: None Therapeutic interventions: 1:1 communication with RN that included active listening with positive feedback, maintained a safe and therapeutic environment, encouraged independent performance of ADLs, provided medication education, and maintained Q 15 min safety checks. Restraints/seclusion/emergency medication: N/A Justification of Continued Inpatient Treatment: Pt is conserved, pending placement at [facility], continue therapeutic support in hygiene and medication management to provide stabilization, prevent decompensation, decreasing risk to patient and readmittance.
[2018-12-17 19:00] VITALS: BP 115/63
[2018-12-17] MEDS: haloperidol 5mg tablet PO SCH (20:50)
--- NOTE | 2018-12-17 23:37 | NUR ---
Nursing Note: Chief Complaint: Mood D/O Legal hold: LPS Conserved Client on involuntary status for GD/DTS Report received from BANDAR Michael with use of SBAR Why are they here: This is a conserved patient from [facility] placed on 5150 for GD due to not showering for a week. She states that it's too hard and the water mai her. Diagnosis/presenting symptoms: F33.2 - Major depressive disorder, recurrent severe without psychotic features, F20.9 - Schizophrenia, unspecified Assessment What has happened this shift: Received patient, she was sitting in the recreation room where she had been eating her dinner. Asked how dinner was she said she enjoyed the apricot chicken. Asked again how she felt about going to [facility], she was still "okay with it." I asked why she didn't like it, she stated "they have to many rules", but wasn't able to elaborate what rules she didn't like. Administered all medications with no adverse side effects noted. Patient refused application of nystain cream under breasts and pannus, unable to assess areas of concern. S/I, H/I: Светлана A/VH: BANDAR Sotomayor did not observe any Sleep: see sleep assessment notation ADL's: Requires encouragement and direction Group attendance: lead electrical controls engineer, no group Were meds taken: Yes Any med S/E: None observed or noted Mental Status Exam Appearance: appropriately dressed, hair and clothes disheveled Eye contact: Direct Behavior: Cooperative Speech: soft tone, hypo-verbal Mood: "good" Affect: Flat Thought process: Poverty of thought Thought Content: unable to formally assess, patient is not conversational Cognition: A&Oxs4 Insight: Poor to fair Judgment: Fair Interventions PRN's used: None Therapeutic interventions: 1:1 communication with RN that included active listening with positive feedback, maintained a safe and therapeutic environment, encouraged independent performance of ADLs, provided medication education, and maintained Q 15 min safety checks. Restraints/seclusion/emergency medication: N/A Justification of Continued Inpatient Treatment: Pt is conserved, pending placement at [facility], continue therapeutic support in hygiene and medication management to provide stabilization, prevent decompensation, decreasing risk to patient and readmittance.
[2018-12-18 07:31] VITALS: BP 114/66
[2018-12-18] MEDS: atorvastatin 10mg tablet PO SCH (08:30)
[2018-12-18] MEDS: amLODIPine 5mg tablet PO SCH (08:30)
[2018-12-18] MEDS: venlafaxine XR 75mg capsule (Q24H) PO SCH (08:31)
[2018-12-18] MEDS: buPROPion SR 150mg tablet PO SCH ×3 (08:31→21:13)
[2018-12-18] MEDS: losartan 25mg tablet PO SCH (08:31)
[2018-12-18] MEDS: topiramate 100mg tablet PO SCH ×2 (08:32→21:13)
[2018-12-18] MEDS: carvedilol 6.25mg tablet PO SCH ×2 (08:32→21:13)
[2018-12-18] MEDS: loratadine 10mg tablet PO SCH (08:32)
[2018-12-18] MEDS: naproxen 500mg tablet PO PRN (08:32)
[2018-12-18] MEDS: potassium chloride 10mEq ER tablet PO SCH (08:32)
[2018-12-18] MEDS: nicotine 21mg patch - 24 hr TD SCH (08:35)
[2018-12-18] MEDS: carbamide peroxide 15ml bottle EACH EAR SCH ×2 (08:36→20:00)
--- NOTE | 2018-12-18 14:17 | NUR ---
Nursing Note: Chief Complaint: Mood D/O Legal hold: LPS Conserved Client on involuntary status for GD/DTS Report received from nurse with use of SBAR: Debby Delacruz RN Why are they here: Pt. is LPS Conserved by [facility] and presents from the [employer] to [facility]. This [facility] reported pt. refused to shower and because of this they gave her a [id number] at which time pt. became agitated. Pt. has a hx Schizophrenia x20 years and has been conserved numerous times. Pt. is [facility]. Diagnosis/presenting symptoms: Current Dx is Schizophrenia, paranoid type. Pt. continues to present with a flat affect with some brightening, labile mood, and depression. Assessment What has happened this shift: Patient presents with her usual flat affect and depressed mood. Stares blankly at staff when spoken to. When asked how she felt about her transfer to [facility] tomorrow, patient replied "It's okay." States she has been there before. "There's a locked side and an unlocked side. I hope I'm on the unlocked side." Offered to take a shower without prompting. "You can put on my nicotine patch and ointment after I shower. It has to be after lunch. At 2 PM." Staff agreed to comply. Napped for greater part of the day. Condition stable. S/I, H/I: Denies A/VH: Not actively responding to A/H today. Sleep: Between meals and groups she naps. ADL's: Showered, changed sheets and washed her clothes today. Group attendance: No groups today Were meds taken: Y Any med S/E: N/A Mental Status Exam Appearance: Clean; hair nicely washed Eye contact: Fair Behavior: Up more today Psychomotor activity: WNL Speech: Slow, soft; low Mood: Pleasant/withdrawn Affect: Flat with brightening Thought process: Poverty of thought; less blocking regarding mental illness Thought Content: Possible paranoid delusions, A/H. Cognition: A/Ox3 Insight: Poor to fair Judgment: Fair Interventions PRN's used: N/A Therapeutic interventions: Provided active listening and therapeutic communication; maintained a safe and therapeutic environment, encouraged and prompted ADLs, reinforced reality as needed, education provided on the importance of keeping skin clean and dry and allowing treatments, and maintained q 15 min safety checks. Restraints/seclusion/emergency medication: N/A Justification of Continued Inpatient Treatment: Pt. remains LPS Conserved and is awaiting placement by through [facility]. Public Guardian.
[2018-12-18 19:00] VITALS: BP 125/79
[2018-12-18] MEDS: haloperidol 5mg tablet PO SCH (21:15)
--- NOTE | 2018-12-19 01:30 | NUR ---
Nursing Note: Chief complaint: Mood D/O, schizophrenia Legal hold: LPS Conserved Client on involuntary status for GD/DTS Report received from nurse with use of SBAR: Skylar RN Why are they here: This is a conserved patient from [facility] placed on 5150 for GD due to not showering for a week. She states that it's too hard and the water mai her. Diagnosis/presenting symptoms: F33.2 - Major depressive disorder, recurrent severe without psychotic features, F20.9 - Schizophrenia, unspecified Assessment S/I, H/I: patient denies A/VH: patient denies Sleep: see sleep assessment notation ADL's: requires encouragement Group attendance: warehouse worker 2nd shift, no group Were meds taken: Yes, except for nystatin cream Any med S/E: none reported or observed Mental Status Exam Appearance: dressed is same clothing as yesterday, needs to shower Eye contact: mostly keeps her eyes closed Behavior: cooperative, little bit more conversation Speech: soft, minimal Mood: tired, avoidant Affect: Flat Thought process: Poverty of thought Thought Content: unable to assess, only answers minimally Cognition: A&O x4 Insight: Fair Judgment: Fair Interventions PRN's used: N/A Therapeutic interventions: 1:1 communication, maintained a safe and therapeutic environment, provided medication and education, encouraged involvement with ADL's, Q 15 min safety checks. Restraints/seclusion/emergency medication: N/A Justification of Continued Inpatient Treatment: Pt is conserved, pending placement at [facility] (placement date 12/19/18), continue therapeutic support in hygiene and medication management to provide stabilization, prevent decompensation, decreasing risk to patient and readmittance.
[2018-12-19 07:58] VITALS: BP 131/71
[2018-12-19] MEDS: amLODIPine 5mg tablet PO SCH (08:21)
[2018-12-19] MEDS: potassium chloride 10mEq ER tablet PO SCH (08:21)
[2018-12-19] MEDS: buPROPion SR 150mg tablet PO SCH ×2 (08:21→12:24)
[2018-12-19] MEDS: atorvastatin 10mg tablet PO SCH (08:22)
[2018-12-19] MEDS: venlafaxine XR 75mg capsule (Q24H) PO SCH (08:22)
[2018-12-19] MEDS: loratadine 10mg tablet PO SCH (08:22)
[2018-12-19] MEDS: topiramate 100mg tablet PO SCH (08:22)
[2018-12-19] MEDS: losartan 25mg tablet PO SCH (08:22)
[2018-12-19] MEDS: carvedilol 6.25mg tablet PO SCH (08:22)
[2018-12-19] MEDS: carbamide peroxide 15ml bottle EACH EAR SCH (10:20)
[2018-12-19] MEDS: nicotine 21mg patch - 24 hr TD SCH (10:21)
[2018-12-19] MEDS ORDERED: NICO-630 TOP (11:41)
[2018-12-19] MEDS ORDERED: HYDR-3686 PO (11:41)
[2018-12-19] MEDS ORDERED: NOR5T PO (11:41)
[2018-12-19] MEDS ORDERED: ATOR10TA PO (11:41)
[2018-12-19] MEDS ORDERED: CARV6.253 PO (11:41)
[2018-12-19] MEDS ORDERED: BUPR200T PO (11:41)
[2018-12-19] MEDS ORDERED: LORA10TA65 PO (11:41)
[2018-12-19] MEDS ORDERED: TOP100T PO (11:41)
[2018-12-19] MEDS ORDERED: LOSA25TA41 PO (11:41)
[2018-12-19] MEDS ORDERED: VENL150T3 PO (11:41)
[2018-12-19] MEDS ORDERED: POTA10TA19 PO (11:41)
--- NOTE | 2018-12-19 13:31 | NUR ---
Nursing Note: Pt refused to allow this greeting card writer to take pictures of the area of redness under her breasts, pannus, and groin. Addendum: 12/19/18 at 1332 by Mary Lou Bolanos RN Amended: Links added.
--- NOTE | 2018-12-19 16:16 | NUR ---
Discharge Note: Pt discharged at 1450 with public guardian employee's representative to be transferred to [facility] via public guardian transportation. Pt was ambulatory. MAY Cummins and AMY Vasquez escorted pt from unit. Followup and continued treatment will be provided through this facility. Possessions were inventoried by AMY Cummins and pt took all possessions with her. Home medications and new prescriptions provided by [facility] were sent with public guardian. A nicotine replacement prescription was provided. Discharge instructions given and pt provided opportunity to ask questions. Community crisis information and national suicide hotline hangout given. Pt had a blunted affect. She reported a little depression, but denied SI. No acute physical or emotional distress. Pt has improved since admit.
== END 2018-12-19 14:50 | DRG 885 ==
LOC: ADULT MH 18:00
PROVIDERS: ADMIT Psychiatry & Neurology Psychiatry; ATTEND Psychiatry & Neurology Psychiatry
DX: F33.2 Major depressive disorder, recurrent severe without psychotic features (principal); F20.9 Schizophrenia, unspecified; E78.00 Pure hypercholesterolemia, unspecified; E78.5 Hyperlipidemia, unspecified; F41.9 Anxiety disorder, unspecified; G89.29 Other chronic pain; E66.9 Obesity, unspecified; M54.5 Low back pain; L30.4 Erythema intertrigo; R21 Rash and other nonspecific skin eruption; I11.0 Hypertensive heart disease with heart failure; I50.9 Heart failure, unspecified; Z62.810 Personal history of physical and sexual abuse in childhood; Z87.891 Personal history of nicotine dependence; Z79.899 Other long term (current) drug therapy; Z88.8 Allergy status to other drugs, medicaments and biological substances; Z98.51 Tubal ligation status; Z68.39 Body mass index [BMI] 39.0-39.9, adult
CPT/HCPCS: 36415; 80053; 80061; 81001; 83036; 84443; 87070; J2001; J2405; J2704; J3010; Q0177